=== PATIENT | female | born 1975 | race Caucasian/White ===

== ENCOUNTER 2017-10-01 08:26 | Day surgery (SDC) | payer OTHER ==
[2017-09-30 13:38] VITALS: BMI 29.3
[2017-10-01 09:28] VITALS: TEMP 99.1
[2017-10-01] MEDS ORDERED: BUPIVACAINE HCL/PF 0.25% (2.5MG/ML) 10 ML VIAL ONE (09:51)
[2017-10-01] MEDS ORDERED: methylPREDNISolone ACET (DEPO) 80 MG/1 ML VIAL ONE (09:51)
[2017-10-01] MEDS ORDERED: MIDAZOLAM HCL 2 MG/2 ML SINGLE DOSE VIAL ONE (10:06)
[2017-10-01] MEDS ORDERED: PROPOFOL 20 ML ONE (10:11)
[2017-10-01] MEDS ORDERED: LIDOCAINE HCL/PF 2% SDV 5ML VIAL ONE (10:11)
[2017-10-01] MEDS ORDERED: BUPIVACAINE HCL/PF 0.25% (2.5MG/ML) 10 ML VIAL IJ ONE (10:18)
[2017-10-01] MEDS ORDERED: LIDOCAINE HCL 1% PRESERVATIVE FREE - 30ML VIAL IJ ONE (10:18)
[2017-10-01] MEDS ORDERED: methylPREDNISolone ACET (DEPO) 80 MG/1 ML VIAL IJ ONE (10:18)
--- NOTE | 2017-10-01 11:00 | OP ---
DATE OF OPERATION: 10/01/2017 PREOPERATIVE DIAGNOSIS: 1. L5-S1 facet disease with spondylolisthesis. 2. Mechanical lower back pain and right lower extremity radiculopathy greater than left. POSTOPERATIVE DIAGNOSIS: 1. L5-S1 facet disease with spondylolisthesis. 2. Mechanical lower back pain and right lower extremity radiculopathy greater than left. ATTENDING SURGEON: Abhilash Mcrae MD PROCEDURE: 1. Right L5-S1 epidural steroid injection. 2. Intraoperative fluoroscopy. ANESTHESIA: Local with IV sedation. ANESTHESIOLOGIST: Gideon Gerard MD INDICATIONS: The patient is a 42-year-old female with back pain and lumbar radiculopathy. Because of the intractable symptoms and failure of conservative treatment, she is here for the first epidural steroid injection. The risks of the procedure include, but are not limited to, bleeding, infection, spinal headache, and neurological injury. The patient understands the indications for the procedure, the procedure in detail, risks and benefits, and alternative treatments for her lumbar condition, and she wishes to proceed. No guarantees were given for a favorable outcome. PROCEDURE IN DETAIL: After the patient was taken to the operating room, she was placed in the prone position with a pillow under her hips. Lumbar region was cleaned with alcohol and prepped with Betadine. A skin wheal was raised with 5 mL of 1% Xylocaine. A 20-degree spinal needle was inserted under AP and lateral fluoroscopic guidance from a right-sided approach to L5-S1. Loss of resistance technique was utilized, and there was no CSF or blood backflow. The needle bevel was turned cephalad and laterally. Depo-Medrol 80 mg and 1 mL of 0.25% Marcaine were injected, and the needle was withdrawn and sterile bandage was applied. The patient tolerated the procedure well and was turned back to the supine position, moving bilateral lower extremities well. She did not complain of headache. ABHILASH MCRAE M.D. [id number]
[2017-10-01 12:17] VITALS: BP 108/64; PULSE 69
== END 2017-10-01 12:00 | disposition home or self-care (01) ==
LOC: JASU-SURG 08:26
PROVIDERS: ATTEND Neurological Surgery
PROC: 3E0R3BZ Introduction of Anesthetic Agent into Spinal Canal, Percutaneous Approach (ICD-10-PCS; 2017-10-01)
PROC: B01BZZZ Fluoroscopy of Spinal Cord (ICD-10-PCS; 2017-10-01)
PROC: 3E0R33Z Introduction of Anti-inflammatory into Spinal Canal, Percutaneous Approach (ICD-10-PCS; principal; 2017-10-01 10:00)
DX: M43.17 Spondylolisthesis, lumbosacral region (principal); M54.5 Low back pain; M54.10 Radiculopathy, site unspecified
CPT/HCPCS: 76000-TC-FY; 84703

== ENCOUNTER 2017-11-19 07:52 | Day surgery (SDC) | payer OTHER ==
[2017-11-18 15:40] VITALS: BMI 30.8
[2017-11-19 08:27] VITALS: TEMP 98.9
[2017-11-19] MEDS ORDERED: methylPREDNISolone ACET (DEPO) 80 MG/1 ML VIAL ONE ×2 (09:09→10:05)
[2017-11-19] MEDS ORDERED: BUPIVACAINE HCL/PF 0.25% (2.5MG/ML) 10 ML VIAL ONE (09:09)
[2017-11-19] MEDS ORDERED: PROPOFOL 20 ML ONE (10:01)
[2017-11-19] MEDS ORDERED: BUPIVACAINE HCL/PF 0.25% (2.5MG/ML) 10 ML VIAL IJ ONE ×2 (10:06→10:09)
[2017-11-19] MEDS ORDERED: LIDOCAINE HCL 1%, 10 MG/ML (50 mL VIAL) IJ ONE (10:06)
[2017-11-19] MEDS ORDERED: methylPREDNISolone ACET (DEPO) 80 MG/1 ML VIAL IJ ONE ×2 (10:07→10:09)
[2017-11-19 11:05] VITALS: PULSE 56
--- NOTE | 2017-11-19 11:24 | OP ---
DATE OF OPERATION: 11/19/2017 PREOPERATIVE DIAGNOSIS: Lumbar disk disease with distal hypertrophy and lumbar radiculopathy, L5-S1. POSTOPERATIVE DIAGNOSIS: Lumbar disk disease with distal hypertrophy and lumbar radiculopathy, L5-S1. ATTENDING SURGEON: Que Mcrae MD PROCEDURE: 1. Right L5-S1 epidural steroid injection. 2. Operative fluoroscopy. ANESTHESIA: Local with IV sedation. ANESTHESOILOGIST: Eunice Hernandez MD INDICATION: The patient is a 42-year-old female with intractable lower back pain and lumbar radiculopathy. She had benefited somewhat from her 1st injection for about a month. She is here for the 2nd injection. The risks of the procedure include but are not limited to bleeding, infection, spinal headache and neurological injury. The patient understands the indication for the procedure, procedure in detail, risks and benefits and alternatives for treatment of her lumbar condition and wished to proceed. No guarantee was given for a favorable outcome. PROCEDURE IN DETAIL: After the patient was taken to the operating room she was placed in a prone position with a pillow under her hips. Lumbar region cleaned with alcohol and prepped with Betadine. A skin wheal raised with 5 mL of 1% Xylocaine. A 22-gauge spinal needle was inserted under AP and lateral fluoroscopic guidance from right-sided approach to L5-S1. A very deep approach was needed. The patient had significant lumbar lordosis. Loss of resistance technique was utilized and there was no CSF or blood backflow. 80 mg of depomedrol and 1 mL of 0.25% Marcaine were injected. The needle was withdrawn and sterile bandage was applied. The patient tolerated the procedure well and was turned back to supine position, moving bilateral upper and lower extremities well. She was not complaining of headache. QEU MCRAE M.D. [id number] MTDD
[2017-11-19 13:42] VITALS: BP 102/68
== END 2017-11-19 11:20 | disposition home or self-care (01) ==
LOC: JASU-SURG 07:52
PROVIDERS: ATTEND Neurological Surgery
PROC: 3E0R33Z Introduction of Anti-inflammatory into Spinal Canal, Percutaneous Approach (ICD-10-PCS; 2017-11-19)
PROC: B01BYZZ Fluoroscopy of Spinal Cord using Other Contrast (ICD-10-PCS; 2017-11-19)
PROC: 3E0R3BZ Introduction of Anesthetic Agent into Spinal Canal, Percutaneous Approach (ICD-10-PCS; principal; 2017-11-19 09:30)
DX: M43.17 Spondylolisthesis, lumbosacral region (principal); M54.16 Radiculopathy, lumbar region
CPT/HCPCS: 36415; 76000-TC-FY; 84702

== ENCOUNTER 2018-02-02 06:21 | Day surgery (SDC) | payer OTHER ==
[2018-01-30 16:49] VITALS: BMI 26.5
[~2018-02-02 06:21] MED LIST: BUPIVACAINE HCL/PF 0.25% (2.5MG/ML) 10 ML VIAL IJ ONE; LIDOCAINE HCL 1% PRESERVATIVE FREE - 30ML VIAL IJ ONE; methylPREDNISolone ACET (DEPO) 80 MG/1 ML VIAL IJ ONE
[2018-02-02] MEDS ORDERED: methylPREDNISolone ACET (DEPO) 80 MG/1 ML VIAL ONE (07:34)
[2018-02-02] MEDS ORDERED: BUPIVACAINE HCL/PF 0.25% (2.5MG/ML) 10 ML VIAL ONE (07:35)
[2018-02-02] MEDS ORDERED: LIDOCAINE HCL/PF 2% SDV 5ML VIAL ONE (08:52)
[2018-02-02] MEDS ORDERED: PROPOFOL 20 ML ONE (08:52)
[2018-02-02] MEDS ORDERED: methylPREDNISolone ACET (DEPO) 80 MG/1 ML VIAL IJ ONE (08:53)
[2018-02-02] MEDS ORDERED: BUPIVACAINE HCL/PF 0.25% (2.5MG/ML) 10 ML VIAL IJ ONE (08:53)
[2018-02-02] MEDS ORDERED: LIDOCAINE HCL 1% PRESERVATIVE FREE - 30ML VIAL IJ ONE (08:53)
[2018-02-02 09:27] VITALS: TEMP 97.8
[2018-02-02 10:30] VITALS: BP 100/62; PULSE 64
--- NOTE | 2018-02-02 19:15 | OP ---
DATE OF OPERATION: 02/02/2018 PREOPERATIVE DIAGNOSES: 1. L5-S1 degenerative disk disease with facet hypertrophy and facet joint effusion. 2. Axial mechanical lower back pain and lumbar radiculopathy, right greater than left. POSTOPERATIVE DIAGNOSES: 1. L5-S1 degenerative disk disease with facet hypertrophy and facet joint effusion. 2. Axial mechanical lower back pain and lumbar radiculopathy, right greater than left. ATTENDING SURGEON: Que Peguero MD PROCEDURE: 1. Right L5-S1 epidural steroid injection. 2. Intraoperative fluoroscopy. ANESTHESIA: Local with IV sedation. ANESTHESIOLOGIST: Reynaldo Abbasi MD INDICATION: The patient is a 42-year-old female with intractable lower back pain and lumbar radiculopathy. She also experiences intermittent weakness. Because of her intractable pain and failure of conservative treatment, she is here for the third epidural steroid injection. The second injection did give her a few weeks of relief. The patient understands the indications for the procedure, procedure in detail, risks and benefits, and alternatives for the treatment of her lumbar condition and wished to proceed. No guarantee was given for a favorable outcome. PROCEDURE IN DETAIL: After the patient was taken to the operating room, she was placed in the prone position with a pillow under her hips. Lumbar region was cleaned with alcohol and prepped with Betadine. A skin wheal was raised with 5 mL of 1% Xylocaine. A 20-degree spinal needle was inserted under AP and lateral fluoroscopic guidance from a right-sided approach to L5-S1, through an interlaminar approach. Jiun-yt-vhwmfoyoio technique was utilized, and there was no CSF or blood backflow. Depo-Medrol 80 mg and 1 mL of 0.25% Marcaine were injected. The needle was withdrawn. Sterile bandage was applied. The patient tolerated the procedure well and was turned back to supine position, moving bilateral lower extremities well. She did not complain of headache. The OR timeout procedure was followed. Nelly [id number]
== END 2018-02-02 10:45 | disposition home or self-care (01) ==
LOC: JASU-SURG 06:21
PROVIDERS: ATTEND Neurological Surgery
PROC: 3E0S33Z Introduction of Anti-inflammatory into Epidural Space, Percutaneous Approach (ICD-10-PCS; 2018-02-02)
PROC: B01BYZZ Fluoroscopy of Spinal Cord using Other Contrast (ICD-10-PCS; 2018-02-02)
PROC: 3E0S3BZ Introduction of Anesthetic Agent into Epidural Space, Percutaneous Approach (ICD-10-PCS; principal; 2018-02-02 08:00)
DX: M51.16 Intervertebral disc disorders with radiculopathy, lumbar region (principal); M47.896 Other spondylosis, lumbar region; M54.5 Low back pain; M25.48 Effusion, other site
CPT/HCPCS: 36415; 76000-TC-FY; 84703

== ENCOUNTER 2018-02-16 05:11 | Inpatient (IN) | payer OTHER ==
[2018-02-13 09:29] VITALS: BMI 26.5
[~2018-02-16 05:11] MED LIST changes: +BACITRACIN 15 GM TUBE TOPICAL OINTMENT TP ONE; -BUPIVACAINE HCL/PF 0.25% (2.5MG/ML) 10 ML VIAL IJ ONE; -LIDOCAINE HCL 1% PRESERVATIVE FREE - 30ML VIAL IJ ONE; -methylPREDNISolone ACET (DEPO) 80 MG/1 ML VIAL IJ ONE
[2018-02-16] MEDS ORDERED: BACITRACIN 15 GM TUBE TOPICAL OINTMENT ONE (08:19)
[2018-02-16 08:22] LABS: BASO % 0.8 % (0-2.0); EOS % 3.4 % (0-4.5); HEMATOCRIT 32.9 % (32.4-45.2); LYMPH % 29.1 % (8-40); MCH 27.5 pg (25.7-33.7); MCHC 33.5 g/dl (32.0-36.0); MEAN CELL VOLUME 81.9 fl (80-96); MEAN PLT VOLUME 8.8 fl (7.5-11.1); MONO % 6.2 % (3.8-10.2); NEUT % 60.5 % (42.8-82.8); PLATELET COUNT 267 K/MM3 (134-434); RBC 4.01 M/mm3 (3.60-5.2); RDW 15.2 % (11.6-15.6); WHITE BLOOD COUNT 6.7 K/mm3 (4.0-10.0)
[2018-02-16] MEDS ORDERED: BUPIVACAINE HCL/PF 0.75% 10 ML VIAL ONE (08:31)
--- NOTE | 2018-02-16 08:35 | PN ---
Progress Note (short form) - Note Progress Note: NEUROSURGERY PRE-OP Pt examined at bedside Incision marked Reported T 99.2 a couple days ago and felt fatigued, better now Repeat WBC 6.7K OK to proceed with planned procedure
[2018-02-16] MEDS ORDERED: PROPOFOL 20 ML ONE ×8 (08:36→11:09)
[2018-02-16] MEDS ORDERED: MIDAZOLAM HCL 2 MG/2 ML SINGLE DOSE VIAL ONE ×3 (08:37→13:12)
[2018-02-16] MEDS ORDERED: ROCURONIUM BROMIDE 50 MG/5 ML VIAL ONE (08:37)
[2018-02-16] MEDS ORDERED: SODIUM CHLORIDE 0.9% P/F 10 ML VIAL IJ ONE ×2 (08:38→09:27)
[2018-02-16] MEDS ORDERED: morphine SULFATE/Preservative Free 0.5 MG/ML (1cc Syringe) ONE (08:41)
[2018-02-16] MEDS ORDERED: LIDOCAINE HCL/PF 2% SDV 5ML VIAL ONE (08:59)
[2018-02-16] MEDS ORDERED: ceFAZolin SODIUM 1 GM VIAL ONE ×3 (09:27→20:58)
[2018-02-16] MEDS ORDERED: ceFAZolin SODIUM 1 GM VIAL IVPB ONE (09:28)
[2018-02-16] MEDS ORDERED: DEXAMETHASONE SOD PHOSPHATE 4 MG/1 ML VIAL ONE ×2 (09:30→12:37)
[2018-02-16] MEDS ORDERED: THROMBIN (BOVINE) 5,000 UNIT VIAL TP ONE (09:56)
[2018-02-16] MEDS ORDERED: BACITRACIN 50,000 UNITS VIAL NR ONE (09:56)
[2018-02-16] MEDS ORDERED: BUPIVACAINE HCL/PF 0.25% (2.5MG/ML) 10 ML VIAL ONE (12:18)
[2018-02-16] MEDS ORDERED: BUPIVACAINE LIPOSOME/PF (EXPAREL) 266 MG/20 ML VIAL NR ONE (12:30)
[2018-02-16] MEDS ORDERED: BUPIVACAINE HCL/PF 0.75% 10 ML VIAL NR ONE (12:30)
[2018-02-16] MEDS ORDERED: BACITRACIN 15 GM TUBE TOPICAL OINTMENT TP ONE (13:02)
[2018-02-16] MEDS ORDERED: ONDANSETRON 4 MG/2 ML VIAL IVPUSH PRN ×2 (13:05→13:20)
[2018-02-16] MEDS ORDERED: BISACODYL 10 MG SUPP.RECT RC PRN (13:05)
--- NOTE | 2018-02-16 13:05 | OP ---
Operative Note - Note: Operative Date: 02/16/18 Pre-Operative Diagnosis: L5-S1 spondylolisthesis, stenosis, radiculopathy Operation: B L5 and partial B S1 laminectomies, facetectomy, foramenotomy, discectomy, interbody fusion L5-S1; B interbody implants L5-S1; pedicle screw fixation, fluoroscopy, microsurgical dissection, posterolateral fusion L5-S1 Findings: Chronic pressure on dura with thinning; sensitive roots L L5/S1 > L; stenosis Implants: 11x25 interbody cortico-cancellous implants; [employer] [place] Spine Bernadette 4.5 system (6.5 x 45 mm screws at L5, 7.5 x 40 mm screws at S1, 35 mm rods x2) Surgeon: Que Peguero Medical Esthetician: Ivan Jain Anesthesiologist/BRUSH OPERATOR: Gideon Gerard Anesthesia: General Specimens Removed: L5-S1 disc Estimated Blood Loss (mls): 100
[2018-02-16] MEDS ORDERED: D5-1/2NS+20 MEQ KCL - 1,000 ML IV SCH (13:15)
--- NOTE | 2018-02-16 13:16 | SURG ---
Surgery Tool And Die Repair Note Tool And Die Repair: Ivan Jain PA-C Date of Service: 02/16/18 Diagnosis: Lumbar radiculopathy L5/S1 Procedure: Posterior lumbar L5/S1 fusion I was present for the entirety of the operative procedure. For further detail, please refer to operative report.
[2018-02-16] MEDS ORDERED: PROMETHAZINE HCL 25 MG/1 ML VIAL IVPB PRN (13:20)
[2018-02-16] MEDS ORDERED: DEXAMETHASONE SOD PHOSPHATE 4 MG/1 ML VIAL IVPUSH PRN (13:20)
[2018-02-16] MEDS ORDERED: LACTATED RINGERS SOLUTION 1,000 ML IV SCH (13:30)
--- NOTE | 2018-02-16 13:36 | PN ---
Progress Note (short form) - Note Progress Note: NEUROSURGERY POD #0 In PACU Not in much pain at the moment AF, VSS, O2 sat 99% Motor at least 4/5 B UE/LE Dressing C/D/I Labs in PACU WIND TURBINE DESIGN ENGINEER if needed Bedrest today OOB tomorrow with brace not in waiting area initially, but found him later on and discuss intra- op findings
[2018-02-16] MEDS: D5-1/2NS+20 MEQ KCL - 20 MEQ/1,000 ML INFUS.BAG IV SCH (16:00)
[2018-02-16] MEDS ORDERED: HYDROmorphone *PCA* 10MG/50ML DISP.SYRIN PCA SCH (16:30)
[2018-02-16 16:38] LABS: HEMATOCRIT 31.6 % (32.4-45.2); HEMOGLOBIN 10.4 GM/dL (10.7-15.3); MCHC 32.8 g/dl (32.0-36.0); MEAN CELL VOLUME 82.5 fl (80-96); MEAN PLT VOLUME 9.4 fl (7.5-11.1); PLATELET COUNT 260 K/MM3 (134-434); RBC 3.83 M/mm3 (3.60-5.2); RDW 15.1 % (11.6-15.6); WHITE BLOOD COUNT 10.3 K/mm3 (4.0-10.0)
[2018-02-16 16:55] LABS: ANION GAP 4 MMOL/L (8-16); BLOOD UREA NITROGEN 12 mg/dL (7-18); CALCIUM 8.6 mg/dL (8.5-10.1); CHLORIDE 110 mmol/L (98-107); CO2 27 mmol/L (21-32); CREATININE 0.6 mg/dL (0.55-1.3); GLUCOSE,RANDOM 107 mg/dL (74-106); POTASSIUM 4.9 mmol/L (3.5-5.1); SODIUM 141 mmol/L (136-145)
[2018-02-16] MEDS ORDERED: DEXTROSE 5%-WATER - 50 ML IVPB ONE ×2 (17:33→20:58)
[2018-02-16] MEDS: DOCUSATE SODIUM 100 MG CAPSULE (FP) PO SCH ×2 (17:38→22:52)
[2018-02-16] MEDS: CEFAZOLIN 1 GM in DEXTROSE 5%-WATER - 50 ML IVPB SCH ×2 (17:39→21:19)
[2018-02-16] MEDS: diazePAM 5 MG TABLET PO SCH ×2 (17:39→21:34)
[2018-02-16] MEDS ORDERED: PNEUMOC 13-VAL CONJ-DIP CRM/PF 0.5 ML DISP.SYRIN IM ONE (19:00)
[2018-02-16] MEDS: TOPIRAMATE 25 MG TABLET (FP) PO SCH (21:19)
[2018-02-16] MEDS: PANTOPRAZOLE 20 MG TABLET (FP) PO SCH (21:41)
[2018-02-16] MEDS: HYDROmorphone *PCA* 10MG/50ML DISP.SYRIN PCA SCH (23:04)
[2018-02-17] MEDS ORDERED: diazePAM 5 MG TABLET PO ONE (01:15)
[2018-02-17] MEDS ORDERED: ceFAZolin SODIUM 1 GM VIAL ONE ×3 (02:15→17:58)
[2018-02-17] MEDS ORDERED: DEXTROSE 5%-WATER - 50 ML IVPB ONE ×3 (02:15→17:58)
[2018-02-17] MEDS: D5-1/2NS+20 MEQ KCL - 20 MEQ/1,000 ML INFUS.BAG IV SCH ×3 (02:16→23:26)
[2018-02-17] MEDS: CEFAZOLIN 1 GM in DEXTROSE 5%-WATER - 50 ML IVPB SCH ×3 (02:17→18:00)
[2018-02-17] MEDS: DOCUSATE SODIUM 100 MG CAPSULE (FP) PO SCH ×3 (05:39→21:41)
[2018-02-17] MEDS: diazePAM 5 MG TABLET PO SCH ×3 (05:39→21:40)
--- NOTE | 2018-02-17 06:55 | OP ---
DATE OF OPERATION: 02/16/2018 PREOPERATIVE DIAGNOSES: 1. L5-S1 spondylolisthesis with bilateral L5-S1 facet joint effusion and stenosis. 2. Lumbar radiculopathy, right greater than left, L5-S1. 3. History of anterior cervical fusion. POSTOPERATIVE DIAGNOSES: 1. L5-S1 spondylolisthesis with bilateral L5-S1 facet joint effusion and stenosis. 2. Lumbar radiculopathy, right greater than left, L5-S1. 3. History of anterior cervical fusion. ATTENDING SURGEON: Que Peguero MD GUM PULLER: KENDRICK Diaz ANESTHESIA: General endotracheal. ANESTHESIOLOGIST: Gideon Gerard MD ESTIMATED BLOOD LOSS: 100 mL. PROCEDURE: 1. Bilateral L5 and partial bilateral S1 laminectomy and full spinal canal and lateral recess decompression, including facetectomy and foraminotomy and diskectomy at L5 and S1 (99641, 82490). 2. Microsurgical dissection with operative microscope and microsurgical technique (80557). 3. [place] of autologous spinous process and laminar bone for interbody and posterolateral fusion (68164). 4. Bilateral L5-S1 diskectomy. 5. Posterior lumbar interbody fusion, L5-S1 (21171). 6. Utilization of intervertebral prosthetic device at L5-S1 (27655). 7. Posterior lumbar pedicle screw fixation system placement from L5 to S1 with [employer] Spine Bernadette-4.5 titanium system (6.5 x 45 mm screws at L5 bilaterally, 7.5 x 40 mm screws at S1 bilaterally, connected with 35-mm rods and secured with locking screws) - (97627). 8. Intraoperative fluoroscopy for localization and pedicle screw placement (96935-88). 9. Posterolateral fusion with autologous morcellized bone graft and bone dust at L5-S1 (56990). FINDINGS: 1. Extremely thin/transparent dura oozing CSF secondary to chronic pressure on the dural sac. 2. Sensitive lumbar nerve roots, right L5-S1 greater than left. 3. Central and lateral recess stenosis. INDICATIONS: The patient is a 42-year-old female who presents with intractable lower back pain and lumbar radiculopathy. Because of her intractable symptoms and failure of conservative treatment, she is consented for lumbar decompression, fusion, and instrumentation. The risks of surgery include, but are not limited to, bleeding, infection, dural tear with CSF leak, neurologic injury including thromboembolic risk, adjacent-level disease, nonunion of fusion, and risks of general anesthesia. The patient understands indication for the procedure, procedure in detail, risks and benefits and alternative treatments of her lumbar condition and wishes to proceed. No guarantees given for a favorable outcome. The patient was urged strongly to quit smoking to improve her chance of healing the fusion successfully. No guarantee was given for a favorable outcome. Intraoperatively, SSEP and MEP signals were monitored. PROCEDURE IN DETAIL: The patient was taken to the operating suite, placed in supine position. After patient's general anesthesia was induced and appropriate lines were placed, a Ha catheter was inserted. The patient was then turned on prone position on a Paulie frame. All pressure points were checked and padded. The lumbar region was cleaned with alcohol and prepped with Betadine and a localizing x-ray was obtained. An approximately 3-1/2-inch incision was opened in the midline from L4 to S1. Subperiosteal dissection was carried out with a periosteal elevator and monopolar electrocautery. The exposure was made from L4 to S1. Two self-retaining retractors were inserted. At this point, another localizing x-ray was obtained with a clamp on the bottom of the L5 lamina. After position was verified, supraspinal ligament at L5-S1 was resected with a Leksell rongeur and spinous processes at L5 were resected with Leksell rongeur and morcellated for bone graft purposes with a bone mill. Complete L5 laminectomy was carried out with a combination of angled curettes, high-speed pneumatic drill, and Kerrison rongeur. The underlying dura was decompressed. Some residual epidural steroid crystals were noted from prior epidural injections. The dura was extremely thin and it was under pressure. It was oozing CSF, even without anything done to it. The area was reinforced with two 6-0 Prolene sutures. At this point, the facetectomy was carried out with a high-speed pneumatic drill as well as a Kerrison rongeur. Epidural hemostasis was maintained with bipolar electrocautery. A bilateral foraminotomy was carried out at L5-S1 and S1-S2 with angled curette and Kerrison rongeur. In summary, the thecal sac as well as bilateral L5 and S1 nerve roots were all decompressed. Under gentle left S1 nerve root retraction, disk annulus was opened on the left side with a No. 15 blade. This and prior (decompression) portion of the procedure was performed with the use of the operating microscope for both illumination and magnification. Microsurgical techniques were utilized. The disk space was cleaned with serially larger disk space scraper from 6 up to 11 mm. A 12-mm disk space distractor was used. Attention then turned to the right side of the disk space , where under gentle right S1 nerve root retraction, disk annulus was incised with a No. 15 blade and the disk space was similarly prepared with scraper as well as curettes. An 11 x 25 mm interbody implant from [employer] was inserted and countersunk by about 5 mm. Interbody implant padilla and tamp were used for this procedure of inserting the interbody implant. This procedure was repeated on the left side, where the disk space was similarly prepared and the central portion of the material was removed with downgoing curette and upgoing pituitary rongeur. The central portion of the disk space was packed with autologous morcellized bone graft and bone dust which was harvested earlier. Another 11 x 25 mm interbody implant was inserted and countersunk by 2 to 3 mm. These bony implants and autologous bone graft provided the basis for interbody fusion. At this point, the microscope was moved out of the way and the fluoroscope was brought into the lateral position. Entry points of pedicle screw were marked with the high-speed pneumatic drill, screw hole was first awled, and then tapped. A 6.5 x 45 mm screws were used at L5 bilaterally and 7.5 x 40 mm screws were used at S1 bilaterally. The EMG threshold of all screws was 20 mA or greater. This was 200 Hz stimulation. Then, 35-mm rods were loaded on top of the screws and locked down with locking screws. The screws were compressed prior to final tightening. A torque wrench and a counter-torque wrench were used for final tightening. The wound was irrigated with a copious amount of antibiotic irrigation. Then, 10 mL each of Exparel was injected in the superficial muscular layer on each side. Prior to this, a piece of Duragen was laid in the epidural space and was covered with a thin layer of DuraSeal. Paraspinal hemostasis was obtained using bipolar electrocautery. At this point, the posterolateral surface of L5 and S1 was packed with autologous morcellized bone graft and bone dust, which was harvested earlier. This completed the posterolateral fusion. At this point, dorsal lumbar musculature was approximated with 0 Vicryl suture and dorsal lumbar fascia was closed with 0 Vicryl suture. Subcutaneous fascia was closed with 3-0 Vicryl suture and skin was closed with a 4-0 Vicryl running subcuticular suture. Steri-Strips and a sterile occlusive dressing were applied. The patient tolerated the procedure well and was returned supine position and extubated. She received one dose of 2 g Ancef. All needle, lap, sponge counts are correct. The OR time-out procedure was followed. QUE PEGUERO M.D. [id number] MTDD
--- NOTE | 2018-02-17 07:48 | PN ---
Progress Note (short form) - Note Progress Note: NEUROSURGERY POD #1 In bed Did not sleep well LBP Leg cramps Tmax 99.8, AF, VSS Motor at least 4/5 B UE/LE Dressing C/D/I Labs OK; WBC 10.3 DO ALL OPERATOR Add Nucynta prn Add Neurontin Bedrest today OOB with brace D/c Ha when OOB LS spine x-rays Incentive spirometry Cont Ancef
--- NOTE | 2018-02-17 08:30 | PN ---
Progress Note (short form) - Note Progress Note: Post op day#1.S/P L5-S1 Decompression with fusion and instrumentation under Ga uneventful.Patient stable and c/o pain score of 4-5/10 on dilaudid paper sales representative.Will continue paper sales representative today and will f/u tomorrow.
[2018-02-17] MEDS: GABAPENTIN 300 MG CAPSULE (FP) PO SCH ×3 (08:40→21:40)
[2018-02-17] MEDS ORDERED: PNEUMOC 13-VAL CONJ-DIP CRM/PF 0.5 ML DISP.SYRIN IM ONE (10:00)
[2018-02-17] MEDS ORDERED: FLU VACCINE QUAD 60 MCG/0.5 ML (MDV 18-19) IM ONE (10:00)
[2018-02-17] MEDS: PANTOPRAZOLE 20 MG TABLET (FP) PO SCH ×2 (10:28→21:40)
[2018-02-17] MEDS: LORATADINE 10 MG TABLET PO SCH (10:28)
[2018-02-17] MEDS: ACETAMINOPHEN 325 MG TABLET (FP) PO PRN (18:00)
[2018-02-17] MEDS: HYDROmorphone *PCA* 10MG/50ML DISP.SYRIN PCA SCH (21:37)
[2018-02-17] MEDS: TOPIRAMATE 25 MG TABLET (FP) PO SCH (21:40)
[2018-02-18] MEDS ORDERED: ceFAZolin SODIUM 1 GM VIAL ONE ×3 (01:20→17:56)
[2018-02-18] MEDS ORDERED: DEXTROSE 5%-WATER - 50 ML IVPB ONE ×3 (01:21→17:56)
[2018-02-18] MEDS: CEFAZOLIN 1 GM in DEXTROSE 5%-WATER - 50 ML IVPB SCH ×3 (01:23→18:42)
[2018-02-18] MEDS: ACETAMINOPHEN 325 MG TABLET (FP) PO PRN ×2 (02:22→21:45)
[2018-02-18] MEDS: DOCUSATE SODIUM 100 MG CAPSULE (FP) PO SCH ×3 (05:32→21:45)
[2018-02-18] MEDS: diazePAM 5 MG TABLET PO SCH ×3 (05:32→21:45)
[2018-02-18] MEDS: GABAPENTIN 300 MG CAPSULE (FP) PO SCH ×3 (05:32→21:45)
--- NOTE | 2018-02-18 07:32 | PN ---
Progress Note (short form) - Note Progress Note: NEUROSURGERY POD #2 In bed Given tylenol for temp LBP Leg cramps less Tmax 102.2, now 99.1, AF, VSS Motor at least 4/5 B UE/LE Dressing C/D/I Labs OK; WBC 10.3 COMMUTATOR UNDERCUTTER On Nucynta prn On Neurontin OOB with brace D/c Ha when OOB today LS spine x-rays Incentive spirometry Cont Ancef given temp Blood cultures if temp > 101.5 today
[2018-02-18] MEDS: TAPENTADOL HYDROCHLORIDE 50 MG TABLET PO PRN ×2 (08:21→18:38)
[2018-02-18] MEDS: PANTOPRAZOLE 20 MG TABLET (FP) PO SCH ×2 (10:38→22:13)
[2018-02-18] MEDS: LORATADINE 10 MG TABLET PO SCH (10:38)
[2018-02-18] MEDS ORDERED: oxyCODONE HCL 5 MG TABLET ONE (12:14)
[2018-02-18] MEDS ORDERED: oxyCODONE HCL 10 MG SUSTAINED ACTING TABLET PO ONE (12:15)
[2018-02-18] MEDS ORDERED: oxyCODONE HCL 5 MG TABLET PO ONE (12:45)
[2018-02-18 13:38] LABS: URINE APPEARANCE CLEAR; URINE BILIRUBIN NEGATIVE (<2.0 mg/dL); URINE COLOR COLORLESS; URINE GLUCOSE (UA) NEGATIVE (NEGATIVE); URINE KETONE NEGATIVE (NEGATIVE); URINE LEUK ESTERASE NEGATIVE (NEGATIVE); URINE NITRITE NEGATIVE (NEGATIVE); URINE PROTEIN NEGATIVE (NEGATIVE); URINE UROBILINOGEN NEGATIVE mg/dL (0.2-1.0)
--- NOTE | 2018-02-18 15:32 | PN ---
Progress Note (short form) - Note Progress Note: Pain Management Patient seen at bedside, sleeping, pain controlled, COMMUNITY PHARMACIST stopped today. Dept of anesthesiology will sign off case at this time. Feel free to re-consult if pain management questions arise
--- NOTE | 2018-02-18 17:40 | PATH ---
Surgical Pathology Report Patient Name: SOPHIA CASEY Med. Rec. #: [id number] /Age/Gender: 1975 (Age: 42) / F Account: [id number] Location: [facility] MED/SURG Taken: 02/16/2018 Received: 02/17/2018 Reported: 02/18/2018 Physicians: Que Peguero M.D. Specimen(s) Received DISC L5-S1 Clinical History Lumbar spine radiculopathy Final Diagnosis DISC, L5-S1, DISCECTOMY: FRAGMENTS OF CARTILAGINOUS TISSUE AND SCANTY BONE SHOWING DEGENERATIVE CHANGE. Electronically Signed Miguel Terrell M.D. Gross Description Received in formalin, labeled "disc, L5-S1" are multiple white irregular portions of cartilage and soft tissue measuring 3.5 x 3.5 x 1cm in aggregate. Associate Director sections are submitted in one cassette. EMILIANA/02/17/2018 petr/02/17/2018
[2018-02-18] MEDS: D5-1/2NS+20 MEQ KCL - 20 MEQ/1,000 ML INFUS.BAG IV SCH (18:43)
[2018-02-18] MEDS: oxyCODONE HCL 10 MG SUSTAINED ACTING TABLET PO SCH (21:44)
[2018-02-18] MEDS: TOPIRAMATE 25 MG TABLET (FP) PO SCH (21:45)
[2018-02-19] MEDS ORDERED: ceFAZolin SODIUM 1 GM VIAL ONE ×4 (01:03→21:49)
[2018-02-19] MEDS ORDERED: DEXTROSE 5%-WATER - 50 ML IVPB ONE ×4 (01:03→21:50)
[2018-02-19] MEDS: CEFAZOLIN 1 GM in DEXTROSE 5%-WATER - 50 ML IVPB SCH ×3 (01:07→17:39)
[2018-02-19] MEDS: D5-1/2NS+20 MEQ KCL - 20 MEQ/1,000 ML INFUS.BAG IV SCH ×2 (03:09→14:29)
[2018-02-19] MEDS: diazePAM 5 MG TABLET PO SCH ×3 (06:12→21:57)
[2018-02-19] MEDS: GABAPENTIN 300 MG CAPSULE (FP) PO SCH ×3 (06:12→21:56)
[2018-02-19] MEDS: DOCUSATE SODIUM 100 MG CAPSULE (FP) PO SCH ×3 (06:18→21:57)
--- NOTE | 2018-02-19 07:34 | PN ---
Progress Note (short form) - Note Progress Note: NEUROSURGERY POD #3 In bed Given tylenol for temp LBP Leg cramps less Tmax 100.6 last night, VSS Motor at least 4+/5 B UE/LE Dressing C/D/I UA negative, U Cx pending On Oxycodone prn On Neurontin OOB with brace D/c Ha when OOB today LS spine x-rays- satisfactory implant positions and spine alignment L5-S1 Incentive spirometry Cont Ancef given temp Blood cultures if temp > 101.5
[2018-02-19] MEDS: oxyCODONE HCL 10 MG SUSTAINED ACTING TABLET PO SCH ×2 (10:21→21:56)
[2018-02-19] MEDS: LORATADINE 10 MG TABLET PO SCH (10:22)
[2018-02-19] MEDS: PANTOPRAZOLE 20 MG TABLET (FP) PO SCH ×2 (10:22→21:59)
[2018-02-19] MEDS: TAPENTADOL HYDROCHLORIDE 50 MG TABLET PO PRN (13:32)
[2018-02-19] MEDS ORDERED: D5-1/2NS+20 MEQ KCL - 20 MEQ/1,000 ML INFUS.BAG IV SCH (14:45)
[2018-02-19] MEDS: TOPIRAMATE 25 MG TABLET (FP) PO SCH (21:57)
[2018-02-20] MEDS: CEFAZOLIN 1 GM in DEXTROSE 5%-WATER - 50 ML IVPB SCH ×2 (01:34→11:07)
[2018-02-20] MEDS: GABAPENTIN 300 MG CAPSULE (FP) PO SCH ×3 (06:40→22:13)
[2018-02-20] MEDS: diazePAM 5 MG TABLET PO SCH ×3 (06:40→22:12)
[2018-02-20] MEDS: DOCUSATE SODIUM 100 MG CAPSULE (FP) PO SCH ×3 (06:40→22:14)
--- NOTE | 2018-02-20 07:55 | PN ---
Progress Note (short form) - Note Progress Note: NEUROSURGERY POD #4 In bed Given tylenol for temp LBP Leg cramps less Tmax 99.6 last night, VSS Motor at least 4+/5 B UE/LE Dressing C/D/I UA negative, U Cx negative On Oxycodone prn On Neurontin OOB with brace LS spine x-rays- satisfactory implant positions and spine alignment L5-S1 Incentive spirometry Switch to Keflex as pt is afebrile Blood cultures if temp > 101.5 Plan d/c over the weekend
[2018-02-20] MEDS ORDERED: PT OWN MED DRAWER 7, Y5N ONE (10:48)
[2018-02-20] MEDS ORDERED: DEXTROSE 5%-WATER - 50 ML IVPB ONE (10:48)
[2018-02-20] MEDS ORDERED: ceFAZolin SODIUM 1 GM VIAL ONE (10:48)
[2018-02-20] MEDS: oxyCODONE HCL 10 MG SUSTAINED ACTING TABLET PO SCH ×2 (10:53→22:13)
[2018-02-20] MEDS: LORATADINE 10 MG TABLET PO SCH (10:54)
[2018-02-20] MEDS: PANTOPRAZOLE 20 MG TABLET (FP) PO SCH ×2 (10:55→22:13)
[2018-02-20] MEDS: TAPENTADOL HYDROCHLORIDE 50 MG TABLET PO PRN ×2 (11:10→19:09)
[2018-02-20] MEDS: CEPHALEXIN MONOHYDRATE 500 MG CAPSULE (UD) PO SCH ×3 (11:11→22:13)
[2018-02-20] MEDS ORDERED: PNEUMOC 13-VAL CONJ-DIP CRM/PF 0.5 ML DISP.SYRIN IM ONE (12:16)
[2018-02-20] MEDS ORDERED: PNEUMOCOCCAL 23 VACCINE 0.5 ML VIAL IM ONE (14:00)
[2018-02-20] MEDS ORDERED: FLU VACCINE QUAD 60 MCG/0.5 ML (MDV 18-19) IM ONE (14:00)
[2018-02-20] MEDS: ACETAMINOPHEN 325 MG TABLET (FP) PO PRN (15:55)
[2018-02-20] MEDS: TOPIRAMATE 25 MG TABLET (FP) PO SCH (22:13)
[2018-02-21] MEDS: GABAPENTIN 300 MG CAPSULE (FP) PO SCH ×2 (06:24→14:54)
[2018-02-21] MEDS: diazePAM 5 MG TABLET PO SCH ×2 (06:25→14:52)
[2018-02-21] MEDS: DOCUSATE SODIUM 100 MG CAPSULE (FP) PO SCH ×2 (06:25→14:50)
[2018-02-21 07:27] VITALS: BP 96/60
--- NOTE | 2018-02-21 09:10 | PN ---
Progress Note (short form) - Note Progress Note: NEUROSURGERY POD #5 In bed LBP better Some buttocks pain Leg cramps less Tmax 98.6 last night, VSS Motor at least 4+/5 B UE/LE Dressing C/D/I UA negative, U Cx negative On Oxycodone prn On Neurontin OOB with brace LS spine x-rays- satisfactory implant positions and spine alignment L5-S1 Incentive spirometry Switched to Keflex Plan d/c home over the weekend
[2018-02-21] MEDS: PANTOPRAZOLE 20 MG TABLET (FP) PO SCH (09:45)
[2018-02-21] MEDS: LORATADINE 10 MG TABLET PO SCH (09:45)
[2018-02-21] MEDS: oxyCODONE HCL 10 MG SUSTAINED ACTING TABLET PO SCH (09:45)
[2018-02-21] MEDS: CEPHALEXIN MONOHYDRATE 500 MG CAPSULE (UD) PO SCH ×3 (09:45→17:46)
[2018-02-21 12:33] VITALS: PULSE 84; TEMP 98.8
== END 2018-02-21 20:34 | disposition home health service (06) | DRG 460 ==
LOC: JSAMEDAYSX 05:11 → J8W 16:45
PROVIDERS: ADMIT Neurological Surgery; ATTEND Neurological Surgery
PROC: 0SG30AJ Fusion of Lumbosacral Joint with Interbody Fusion Device, Posterior Approach, Anterior Column, Open Approach (ICD-10-PCS; 2018-02-16)
PROC: 01NB0ZZ Release Lumbar Nerve, Open Approach (ICD-10-PCS; 2018-02-16)
PROC: 00QT0ZZ Repair Spinal Meninges, Open Approach (ICD-10-PCS; 2018-02-16)
PROC: 0SB40ZZ Excision of Lumbosacral Disc, Open Approach (ICD-10-PCS; principal; 2018-02-16 08:00)
DX: M43.17 Spondylolisthesis, lumbosacral region (principal); G96.0 Cerebrospinal fluid leak; M48.07 Spinal stenosis, lumbosacral region; M54.17 Radiculopathy, lumbosacral region
CPT/HCPCS: 36415; 72020-TC-FY; 72100-TC-FY; 80048; 81003; 84702; 85025; 85027; 86850; 86900; 86901; 87086; 88304-TC; 90688; 90732; 94010; 94760; 97116-GP; 97161-GP; G0008; G0009

== ENCOUNTER 2018-03-01 16:09 | Inpatient (IN) | payer OTHER ==
[2018-03-01] MEDS ORDERED: SODIUM CHLORIDE 0.9% 1000 ML INFUS.BAG IV ONE (16:36)
[2018-03-01] MEDS ORDERED: ACETAMINOPHEN 1000 MG/100 ML VIAL (NON FORMULARY) IVPB ONE ×2 (16:36→21:45)
--- NOTE | 2018-03-01 16:36 | PDOC ---
History of Present Illness - General History Source: Patient Exam Limitations: No Limitations - History of Present Illness Initial Comments: 03/01/18 16:53 The patient is a 42 year old female with a significant past medical history of recent decompression L5-S1 with Dr. Stahl who presents to the ER with drainage from the incision site 2 weeks post-op. Patient reports she has noticed sanguineous drainage since the surgery and occasionally purulent drainage. Patient denies any odor from the drainage. Patient states she changes the gauze once a day. She had a scheduled appointment with Dr. Stahl on 03/03 but did not want to wait until then. Patient also admits to right calf pain over the last few days. The patient fevers, chills, loss of bladder control. Allergies: NKA Past surgical history: L5-S1 decompression Social history: No reported alcohol, drug, or cigarette use. Neurosurgery: Dr. Que Stahl <Ani Whiting - Last Filed: 03/01/18 16:57> <Traci Solares - Last Filed: 03/01/18 17:45> - General Chief Complaint: Pain Stated Complaint: POST OP PAIN Time Seen by Provider: 03/01/18 16:20 Past History <Ani Whiting - Last Filed: 03/01/18 16:57> - Past Medical History Anemia: No Asthma: No Cancer: No Cardiac Disorders: No CVA: No COPD: No CHF: No Dementia: No Diabetes: No GI Disorders: Yes (acid reflux) Disorders: No HTN: No Hypercholesterolemia: No Liver Disease: No Seizures: No Thyroid Disease: No - Surgical History Abdominal Surgery: No Appendectomy: No Cardiac Surgery: No Cholecystectomy: No Lung Surgery: No Neurologic Surgery: Yes (cervical fusion 2017) Orthopedic Surgery: No - Suicide/Smoking/Psychosocial Hx Smoking Status: Yes Smoking History: Current every day smoker Have you smoked in the past 12 months: Yes Number of Cigarettes Smoked Daily: 10 Information on smoking cessation initiated: No 'Breaking Loose' booklet given: 02/16/18 Hx Alcohol Use: No Drug/Substance Use Hx: No Substance Use Type: None Hx Substance Use Treatment: No <Traci Solares - Last Filed: 03/01/18 17:45> - Past Medical History Allergies/Adverse Reactions: Allergies Allergy/AdvReac Type Severity Reaction Status Date / Time ciprofloxacin Allergy Severe "anaphylaxi Verified 03/01/18 16:19 s" levofloxacin [Levofloxacin] Allergy Severe "anaphylaxi Verified 03/01/18 16:19 s" Home Medications: Ambulatory Orders Loratadine [Claritin] 10 mg PO DAILY 08/16/11 Omeprazole Magnesium [Prilosec Otc] 20 mg PO BID 08/16/11 Topiramate [Topamax] 50 mg PO HS 09/30/17 Tizanidine HCl 2 mg PO TID 11/18/17 Cephalexin Monohydrate [Keflex -] 500 mg PO QID #30 capsule 02/20/18 Gabapentin [Neurontin -] 300 mg PO TID #90 capsule 02/20/18 oxyCODONE SR [Oxycontin] 10 mg PO BID #30 tab.er.12h MDD 2 02/20/18 Oxycodone HCl 5 mg PO QID PRN #60 tablet MDD 4 02/21/18 Review of Systems - Review of Systems Able to Perform ROS?: Yes Comments:: 03/01/18 16:53 ADULT ROS GENERAL/CONSTITUTIONAL: No fever or chills. No weakness. HEAD, EYES, EARS, NOSE AND THROAT: No change in vision. No ear pain or discharge. No sore throat. GASTROINTESTINAL: No nausea, vomiting, diarrhea or constipation. GENITOURINARY: No dysuria, frequency, or change in urination. CARDIOVASCULAR: No chest pain or shortness of breath. RESPIRATORY: No cough, wheezing, or hemoptysis. MUSCULOSKELETAL: No joint swelling or pain. No neck or back pain. (+) Right calf pain. BACK: (+) Drainage from recent L5-S1 decompression incision site. SKIN: No rash NEUROLOGIC: No headache, vertigo, loss of consciousness, or change in strength/ sensation. ENDOCRINE: No increased thirst. No abnormal weight change. HEMATOLOGIC/LYMPHATIC: No anemia, easy bleeding, or history of blood clots. ALLERGIC/IMMUNOLOGIC: No hives or skin allergy. <Ani Whiting - Last Filed: 03/01/18 16:57> *Physical Exam - Vital Signs Last Vital Signs Temp Pulse Resp BP Pulse Ox 99.8 F H 103 H 18 134/81 100 03/01/18 16:16 03/01/18 16:16 03/01/18 16:16 03/01/18 16:16 03/01/18 16:16 - Physical Exam Comments: 03/01/18 16:54 ADULT PHYSICAL EXAM Constitutional: Awake, alert, oriented. (+) Patient is uncomfortable on the stretcher. Head: Normocephalic. Atraumatic Eyes: PERRL. EOMI. Conjunctivae are not pale. ENT: Mucous membranes are moist and intact. Posterior pharynx without exudates or erythema. Uvula midline. Neck: Supple. Full ROM. No lymphadenopathy. Cardiovascular: Regular rate. Regular rhythm. S1, S2 regular. Distal pulses are 2+ and symmetric. Pulmonary/Chest: No evidence of respiratory distress. Clear to auscultation bilaterally No wheezing, rales or rhonchi. Abdominal: Soft and non-distended. There is no tenderness. No rebound, guarding or rigidity. No organomegaly. No palpable masses. Good bowel sounds. Back: No CVA tenderness. Musculoskeletal: No edema. No cyanosis. No clubbing. Full range of motion in all extremities. Nocalf tenderness. Radial/pedal pulses are intact and 2+ bilaterally Back: (+) Pinpoint area from recent L5-S1 decompression draining serosanguineous fluid with associated tenderness over the distal part of the incision. (+) Mild fluctuance to the distal end of the wound. Skin: Skin is warm and dry. No petechiae. No purpura. Neurological: Alert and oriented to person, place, and time. Cranial nerves II -XII are grossly intact. Normal speech. Strength is grossly symmetric. No sensory deficits. Psychiatric: Good eye contact. Normal interaction, affect and behavior. <Ani Whiting - Last Filed: 03/01/18 16:57> - Vital Signs Last Vital Signs Temp Pulse Resp BP Pulse Ox 99.8 F H 103 H 18 134/81 100 03/01/18 16:16 03/01/18 16:16 03/01/18 16:16 03/01/18 16:16 03/01/18 16:16 <Traci Solares - Last Filed: 03/01/18 17:45> ED Treatment Course - LABORATORY CBC & Chemistry Diagram: 03/01/18 16:55 03/01/18 16:55 <rTaci Solares - Last Filed: 03/01/18 17:45> Medical Decision Making - Medical Decision Making 03/01/18 16:41 a/p: 42yo female with recent decompression L5-s1 with Dr. Stahl with drainage from the distal end of the wound -pt has been draining since the surgery -denies fevers, but low grade temp -serous/serosanguinous/sometimes purulent drainage -no surrounding erythema -ttp over distal part of the incision -mild fluctuance to distal end of wound -will send labs, cultures -R calf pain - will obtain duplex RLE -call placed to Dr. Stahl for imaging 03/01/18 17:[address] Stahl who states the OR team will be in at 630 and he will take the patient to the OR at 7p no abx requests preop labs/ekg/cxr, noncon ct lumbar spine blood cultures pt npo discussed with the patient dr. stahl requests med consult to dr. abraham 03/01/18 17:[address] scan <Traci Solares - Last Filed: 03/01/18 17:45> *DC/Admit/Observation/Transfer - Attestations Scribe Attestion: 03/01/18 16:57 Documentation prepared by Ani Whiting, acting as medical lab specialist for Traci Solares DO. <Ani Whiting - Last Filed: 03/01/18 16:57> - Discharge Dispostion Decision to Admit order: Yes - Attestations Physician Attestion: 03/01/18 16:49 I, Dr. Traci Solares DO, attest that this document has been prepared under my direction and personally reviewed by me in its entirety. I further attest, that it accurately reflects all work, treatment, procedures and medical decision -making performed by me. <Traci Solares - Last Filed: 03/01/18 17:45> Diagnosis at time of Disposition: Post op infection - Discharge Dispostion Condition at time of disposition: Guarded
[2018-03-01] MEDS ORDERED: ACETAMINOPHEN INJECTION 100 ML IVPB ONE (17:05)
[2018-03-01 17:10] LABS: BASO % 1.1 % (0-2.0); EOS % 2.5 % (0-4.5); HEMOGLOBIN 11.1 GM/dL (10.7-15.3); LYMPH % 34.5 % (8-40); MCH 26.7 pg (25.7-33.7); MCHC 32.6 g/dl (32.0-36.0); MEAN CELL VOLUME 81.8 fl (80-96); MEAN PLT VOLUME 8.3 fl (7.5-11.1); NEUT % 57.9 % (42.8-82.8); PLATELET COUNT 397 K/MM3 (134-434); RBC 4.16 M/mm3 (3.60-5.2); RDW 15.1 % (11.6-15.6); WHITE BLOOD COUNT 8.4 K/mm3 (4.0-10.0)
[2018-03-01 17:24] LABS: INR 0.99 (0.83-1.09); PROTHROMBIN TIME (PATIENT) 11.7 SEC (9.7-13.0)
[2018-03-01 17:26] LABS: ACTIVATED PTT 33.8 SECONDS (25.2-36.5)
[2018-03-01 17:37] LABS: ALBUMIN 3.8 g/dl (3.4-5.0); ALK PHOS 78 U/L (45-117); ANION GAP 5 MMOL/L (8-16); BILIRUBIN,TOTAL 0.2 mg/dL (0.2-1); BLOOD UREA NITROGEN 10 mg/dL (7-18); CALCIUM 9.2 mg/dL (8.5-10.1); CHLORIDE 109 mmol/L (98-107); CO2 24 mmol/L (21-32); CREATININE 0.7 mg/dL (0.55-1.3); GLUCOSE,RANDOM 77 mg/dL (74-106); POTASSIUM 3.8 mmol/L (3.5-5.1); SGOT/AST 16 U/L (15-37); SGPT/ALT 18 U/L (13-61); SODIUM 138 mmol/L (136-145); TOT PROT 7.8 g/dl (6.4-8.2)
--- NOTE | 2018-03-01 17:41 | PN ---
Progress Note (short form) - Note Progress Note: NEUROSURGERY s/p L5-S1 laminectomies and PLIF 2 weeks ago/ C/o wound drainage x 1 week. Low grade temp 99.8 in ED. Intermittent chills at home. No fever. R sciatica/luis miguel tenderness. Incisional pain as expected. PE: AF,VSS low grade earlier General- unremarkable CN- intact; Motor- 4+-5/5 B LE; Sensation- intact LT; DTR- intact Wound- serous drainage from bottom of incision WBC 8.4, Hgb 11.1; Chem normal, blood cultures taken LE doppler- negative for DVT CT LS spine- postop changes L5-S1; implants in good position Lumbar wound drainage OR for exploration of laminectomies and fusion, debridement, cultures, possible lumbar drain Risks and benefits d/w patient/
[2018-03-01] MEDS ORDERED: LIDOCAINE HCL/PF 2% SDV 5ML VIAL ONE (18:23)
[2018-03-01] MEDS ORDERED: PROPOFOL 20 ML ONE ×2 (18:23→19:36)
[2018-03-01] MEDS ORDERED: MIDAZOLAM HCL 2 MG/2 ML SINGLE DOSE VIAL ONE ×2 (18:23→22:15)
[2018-03-01] MEDS ORDERED: SUCCINYLCHOLINE CHLORIDE 200 MG/10 ML VIAL ONE (18:24)
[2018-03-01] MEDS ORDERED: ROCURONIUM BROMIDE 50 MG/5 ML VIAL ONE (18:24)
[2018-03-01] MEDS ORDERED: KETOROLAC TROMETHAMINE 30 MG/1 ML VIAL ONE (18:32)
[2018-03-01] MEDS ORDERED: ONDANSETRON 4 MG/2 ML VIAL ONE (18:32)
[2018-03-01] MEDS ORDERED: ONDANSETRON 4 MG/2 ML VIAL IVPUSH PRN ×2 (18:35→21:33)
[2018-03-01] MEDS ORDERED: oxyCODONE HCL 5 MG TABLET PO PRN (18:35)
[2018-03-01] MEDS ORDERED: VANCOMYCIN 1,000 MG VIAL (RESTRICTED TO ID ONLY) ONE ×2 (18:56→19:37)
[2018-03-01] MEDS ORDERED: BACITRACIN 15 GM TUBE TOPICAL OINTMENT ONE (18:56)
[2018-03-01] MEDS ORDERED: VANCOMYCIN 1,000 MG VIAL (RESTRICTED TO ID ONLY) IVPB ONE (19:31)
[2018-03-01] MEDS ORDERED: THROMBIN (BOVINE) 5,000 UNIT VIAL TP ONE (19:36)
[2018-03-01] MEDS ORDERED: NEOSTIGMINE METHYLSULFATE 0.5 MG/ML - 10 ML MDV ONE (19:37)
[2018-03-01] MEDS ORDERED: GLYCOPYRROLATE 0.2 MG/1 ML VIAL ONE (19:37)
[2018-03-01] MEDS ORDERED: BACITRACIN 50,000 UNITS VIAL NR ONE ×2 (20:47→20:48)
[2018-03-01] MEDS ORDERED: BISACODYL 10 MG SUPP.RECT RC PRN (21:33)
--- NOTE | 2018-03-01 21:43 | OP ---
Operative Note - Note: Operative Date: 03/01/18 Pre-Operative Diagnosis: lumbar wound drainage Operation: Rexploration of L5-S1 fusion, removal of posterolateral bone grafts, harvest of new autologous bone grafts; expansion of B L5 and S1 laminectomies, foramentomies, microdissection; redo L5-S1 posterolateral fusion; lumbar drain placement at L2-3 Findings: Paraspinal and subcutaneous fluid collection; thin dura oozing CSF Post-Operative Diagnosis: Same as Pre-op Surgeon: Que Peguero Anesthesiologist/INDIGO VAT TENDER CLOTH: Joao Childers Anesthesia: General Specimens Removed: subcutaneous and epidural fluid for gram stain and culture; CSF for routine CSF studies Estimated Blood Loss (mls): 25 Operative Report Dictated: Yes
[2018-03-01] MEDS ORDERED: D5-1/2NS+20 MEQ KCL - 1,000 ML IV SCH (21:45)
[2018-03-01] MEDS ORDERED: HYDROmorphone *PCA* 10MG/50ML DISP.SYRIN PCA SCH (21:45)
[2018-03-01] MEDS ORDERED: LORazepam 2 MG/ML SDV VIAL ONE (21:55)
[2018-03-01] MEDS ORDERED: MIDAZOLAM HCL 2 MG/2 ML SINGLE DOSE VIAL IVPUSH ONE (21:57)
[2018-03-01] MEDS ORDERED: VANCOMYCIN 1 GRAM (PRE-DOCKED) 1,000 MG/250 ML BAG IVPB SCH (22:00)
[2018-03-01] MEDS ORDERED: ALBUTEROL SO4 0.083% IH SOL 2.5 MG/3 ML VIAL.NEB. NEB ONE (22:05)
--- NOTE | 2018-03-01 22:09 | PN ---
Progress Note (short form) - Note Progress Note: NEUROSURGERY In PACU Tremors PE: BP OK; O2 sat 99-100% General- unremarkable; anxious CV- RR; Lungs- upper airway noises only; Abd- benign; Ext- no sign of DVT CN- intact; Motor- 4/5 B LE; Sensation- intact LT; DTR- intact Drain CSF 10 cc in PACU Dressing intact Lumbar drain and wound drain working Findings d/w patient/ Give Ativan for anxiety Albuterol nebulizer Labs pending
[2018-03-01] MEDS ORDERED: HYDROmorphone *PCA* 10MG/50ML DISP.SYRIN PCA ONE (22:25)
[2018-03-01 22:43] LABS: CSF APPEARANCE CLEAR; CSF COLOR COLORLESS
[2018-03-01 22:44] LABS: CSF WBC 0
[2018-03-01] MEDS: D5-1/2NS+20 MEQ KCL - 20 MEQ/1,000 ML INFUS.BAG IV SCH (23:15)
[2018-03-01 23:18] LABS: GLUCOSE,CSF 54 mg/dL (40-70)
[2018-03-01 23:24] LABS: HEMOGLOBIN 10.5 GM/dL (10.7-15.3); MCH 26.9 pg (25.7-33.7); MCHC 32.8 g/dl (32.0-36.0); MEAN CELL VOLUME 81.9 fl (80-96); MEAN PLT VOLUME 8.4 fl (7.5-11.1); PLATELET COUNT 370 K/MM3 (134-434); RBC 3.91 M/mm3 (3.60-5.2); RDW 15.4 % (11.6-15.6); WHITE BLOOD COUNT 6.7 K/mm3 (4.0-10.0)
[2018-03-01 23:48] LABS: ANION GAP 7 MMOL/L (8-16); BLOOD UREA NITROGEN 9 mg/dL (7-18); CALCIUM 8.5 mg/dL (8.5-10.1); CHLORIDE 109 mmol/L (98-107); CO2 24 mmol/L (21-32); CREATININE 0.7 mg/dL (0.55-1.3); GLUCOSE,RANDOM 83 mg/dL (74-106); POTASSIUM 3.8 mmol/L (3.5-5.1); SODIUM 139 mmol/L (136-145)
--- NOTE | 2018-03-02 00:15 | CONSULT ---
Consultation: REQUESTING PROVIDER: CONSULT REQUEST: We have been asked to medically evaluate this patient for ( specify). HISTORY OF PRESENT ILLNESS: This is a 42 yo F with PMH of decompression L5-S1 [address] Peguero, who presented to ER with drainage from the incision site, possibly infected. She is now POD 0 s/p reexploration of L5-S1 fusion, removal of posterolateral bone grafts, harvest of new autologous bone grafts'; expansion of B L5 and S1 laminectomies, foramentomies, microdissection; lumbar drain placement at L2-3. EBL 25 cc. Patient is somnolent from anesthesia, afebrile and hemodynamically stable. Drain contains 10 cc serosanguineous fluid. Pain is controlled at this time. REVIEW OF SYSTEMS: CONSTITUTIONAL: unable to obtain patient is very somnolent PHYSICAL EXAMINATION Vital Signs - 24 hr 03/01/18 03/01/18 03/01/18 16:16 22:00 22:15 Temperature 99.8 F H Pulse Rate 103 H 101 H 112 H Respiratory 18 22 H 21 H Rate Blood Pressure 134/81 133/110 H 107/56 L O2 Sat by Pulse 100 100 100 Oximetry (%) 03/01/18 03/01/18 03/01/18 22:30 22:45 23:00 Temperature Pulse Rate 64 63 58 L Respiratory 13 13 11 Rate Blood Pressure 90/41 L 90/57 L 90/54 L O2 Sat by Pulse 100 100 100 Oximetry (%) 03/01/18 03/01/18 03/02/18 23:15 23:30 00:03 Temperature 98.2 F 98.2 F 98.3 F Pulse Rate 85 58 L 61 Respiratory 14 12 18 Rate Blood Pressure 90/52 L 99/60 107/66 O2 Sat by Pulse 100 Oximetry (%) GENERAL:somnolent HEAD: Normal with no signs of trauma. EYES: Pupils equal, round and reactive to light, sclera anicteric, conjunctiva clear. EARS, NOSE, THROAT: Moist mucous membranes. NECK: supple LUNGS: Breath sounds equal, clear to auscultation bilaterally. HEART: Regular rate and rhythm, normal S1 and S2 ABDOMEN: Soft, nontender, not distended, globally decreased bowel sounds MUSCULOSKELETAL: No bony deformities UPPER EXTREMITIES: 2+ pulses, warm, well-perfused. No peripheral edema. LOWER EXTREMITIES: 2+ pulses, warm, well-perfused. No peripheral edema. NEUROLOGICAL: Cranial nerves II-XII grossly intact. slurred speech PSYCHIATRIC: somnolent SKIN: Warm, dry Laboratory Results - last 24 hr 03/01/18 03/01/18 03/01/18 16:55 16:55 16:55 WBC RBC Hgb Hct MCV MCH MCHC RDW Plt Count MPV Absolute Neuts (auto) Neutrophils % Lymphocytes % Monocytes % Eosinophils % Basophils % Nucleated RBC % PT with INR 11.70 INR 0.99 PTT (Actin FS) 33.8 Sodium 138 Potassium 3.8 Chloride 109 H Carbon Dioxide 24 Anion Gap 5 L BUN 10 Creatinine 0.7 Creat Clearance w eGFR > 60 Random Glucose 77 Calcium 9.2 Total Bilirubin 0.2 AST 16 ALT 18 Alkaline Phosphatase 78 Total Protein 7.8 Albumin 3.8 Beta HCG, Quant < 1.0 CSF Appearance CSF Color CSF WBC CSF RBC CSF Neutrophils CSF Lymphocytes CSF Eosinophils CSF Basophils CSF Macrophages CSF Plasma Cells CSF Diff Comment CSF Comment CSF Glucose CSF Total Protein Blood Type O POSITIVE Antibody Screen Negative 03/01/18 03/01/18 03/01/18 16:55 21:30 23:00 WBC 8.4 6.7 RBC 4.16 3.91 Hgb 11.1 10.5 L Hct 34.0 32.0 L MCV 81.8 81.9 MCH 26.7 26.9 MCHC 32.6 32.8 RDW 15.1 15.4 Plt Count 397 D 370 MPV 8.3 D 8.4 Absolute Neuts (auto) 4.9 Neutrophils % 57.9 Lymphocytes % 34.5 Monocytes % 4.0 Eosinophils % 2.5 Basophils % 1.1 Nucleated RBC % 0 PT with INR INR PTT (Actin FS) Sodium Potassium Chloride Carbon Dioxide Anion Gap BUN Creatinine Creat Clearance w eGFR Random Glucose Calcium Total Bilirubin AST ALT Alkaline Phosphatase Total Protein Albumin Beta HCG, Quant CSF Appearance Clear CSF Color Colorless CSF WBC 0 CSF RBC 0 CSF Neutrophils No Result Required. CSF Lymphocytes No Result Required. CSF Eosinophils No Result Required. CSF Basophils No Result Required. CSF Macrophages No Result Required. CSF Plasma Cells No Result Required. CSF Diff Comment No Result Required. CSF Comment No Result Required. CSF Glucose 54 CSF Total Protein 33 Blood Type Antibody Screen 03/01/18 23:00 WBC RBC Hgb Hct MCV MCH MCHC RDW Plt Count MPV Absolute Neuts (auto) Neutrophils % Lymphocytes % Monocytes % Eosinophils % Basophils % Nucleated RBC % PT with INR INR PTT (Actin FS) Sodium 139 Potassium 3.8 Chloride 109 H Carbon Dioxide 24 Anion Gap 7 L BUN 9 Creatinine 0.7 Creat Clearance w eGFR > 60 Random Glucose 83 Calcium 8.5 Total Bilirubin AST ALT Alkaline Phosphatase Total Protein Albumin Beta HCG, Quant CSF Appearance CSF Color CSF WBC CSF RBC CSF Neutrophils CSF Lymphocytes CSF Eosinophils CSF Basophils CSF Macrophages CSF Plasma Cells CSF Diff Comment CSF Comment CSF Glucose CSF Total Protein Blood Type Antibody Screen Active Medications Generic Name Dose Route Start Last Admin Trade Name Freq PRN Reason Stop Dose Admin Acetaminophen 650 mg 03/01/18 21:33 Tylenol - PO Q6H PRN FEVER Bisacodyl 10 mg 03/01/18 21:33 Dulcolax Suppository - RC DAILY PRN CONSTIPATION Diazepam 5 mg 03/01/18 22:15 Valium - PO TID MARY Docusate Sodium 100 mg 03/01/18 22:00 Colace - PO TID MARY Fentanyl 50 mcg 03/01/18 18:35 03/01/18 22:25 Sublimaze Injection - IVPUSH 50 mcg [id number] PRN Administration PAIN-PACU ORDER X 4 DOSES ONLY Gabapentin 300 mg 03/01/18 22:00 Neurontin - PO TID MARY Hydromorphone HCl 10 mg 03/01/18 21:45 03/01/18 23:00 Dilaudid Job Analysis Manager - DEPUTY GRAND JURY 03/08/18 21:40 10 mg DEPUTY GRAND JURY MARY Administration Protocol Lactated Ringer's 1,000 mls @ 75 mls/hr 03/01/18 18:45 Lactated Ringers Solution IV ASDIR MARY Potassium Chloride/Dextrose/Sod Cl 20 meq in 1,000 mls @ 100 mls/hr 03/01/18 21:45 03/01/18 23:15 D5-1/2ns+20 Meq Kcl - IV 0 mls ASDIR MARY Administration Potassium Chloride/Dextrose/Sod Cl 1,000 mls @ 42 mls/hr 03/01/18 21:45 D5-1/2ns+20 Meq Kcl - IV ASDIR MARY Piperacillin Sod/Tazobactam 50 mls @ 100 mls/hr 03/01/18 22:45 Sod 3.375 gm/ Dextrose IVPB Q6H-IV MARY Protocol Loratadine 10 mg 03/02/18 10:00 Claritin - PO DAILY MARY Ondansetron HCl 4 mg 03/01/18 18:35 Zofran Injection IVPUSH Q6H PRN NAUSEA AND/OR VOMITING Ondansetron HCl 4 mg 03/01/18 21:33 Zofran Injection IVPUSH Q6H PRN NAUSEA AND/OR VOMITING Oxycodone HCl 10 mg 03/01/18 18:35 Roxicodone - PO Q4H PRN PAIN LEVEL 6-10 Oxycodone HCl 5 mg 03/01/18 18:35 Roxicodone - PO Q4H PRN PAIN LEVEL 1-5 Oxycodone HCl 10 mg 03/01/18 22:00 Oxycontin - PO BID MARY Pantoprazole Sodium 20 mg 03/01/18 22:00 Protonix - PO BID MARY Topiramate 50 mg 03/01/18 22:15 Topamax - PO HS MARY Vancomycin HCl 1,000 mg 03/01/18 22:00 Vancomycin (Pre-Docked) IVPB Q12H MARY Protocol ASSESSMENT/PLAN: This is a 42 yo F with PMH of decompression L5-S1 [address] Peguero, who presented to ER with drainage from the incision site. POD 0 s/p reexploration of L5-S1 fusion, removal of posterolateral bone grafts, harvest of new autologous bone grafts'; expansion of B L5 and S1 laminectomies, foramentomies, microdissection; lumbar drain placement at L2-3. Possible surgical wound infection -pain control with dilaudid oil field pumper, oxycodone and tylenol, neurontin -Ativan for anxiety -Albuterol nebulizer PRN, incentive spirometer -f/u post op labs -delores negro -neuro checks q4h -no leukocytosis; ppx vanco zosyn -D5 1/2 ns 20 kcl @ 100 -bedrest -npo except meds Dispo: We will continue to follow the patient. Thank you for this consultative opportunity. Problem List - Problems (1) History of laminectomy Code(s): Z98.890 - OTHER SPECIFIED POSTPROCEDURAL STATES (2) Post op infection Code(s): T81.40XA - INFECTION FOLLOWING A PROCEDURE, UNSPECIFIED, INIT Visit type - Emergency Visit Emergency Visit: Yes ED Registration Date: 03/01/18 Care time: The patient presented to the Emergency Department on the above date and was hospitalized for further evaluation of their emergent condition. - New Patient This patient is new to me today: Yes Date on this admission: 03/02/18 - Critical Care Critical Care patient: Yes Total Critical Care Time (in minutes): 35 Critical Care Statement: The care of this patient involved high complexity decision making to prevent further life threatening deterioration of the patient 's condition and/or to evaluate & treat vital organ system(s) failure or risk of failure.
[2018-03-02] MEDS: LACTATED RINGERS SOLUTION 1,000 ML IV SCH ×3 (01:00→08:00)
[2018-03-02] MEDS ORDERED: SODIUM CHLORIDE 500 ML IV STA (01:53)
[2018-03-02] MEDS: GABAPENTIN 300 MG CAPSULE (FP) PO SCH ×4 (03:12→22:14)
[2018-03-02] MEDS: DOCUSATE SODIUM 100 MG CAPSULE (FP) PO SCH ×4 (03:12→22:15)
[2018-03-02] MEDS: oxyCODONE HCL 10 MG SUSTAINED ACTING TABLET PO SCH ×3 (03:12→22:15)
[2018-03-02] MEDS: PANTOPRAZOLE 20 MG TABLET (FP) PO SCH ×3 (03:12→22:13)
[2018-03-02] MEDS: TOPIRAMATE 25 MG TABLET (FP) PO SCH ×2 (03:13→22:14)
[2018-03-02] MEDS: diazePAM 5 MG TABLET PO SCH ×4 (03:15→22:15)
[2018-03-02] MEDS: PIPERACILLIN/TAZOB 3.375 GM 3.375 GM in DEXTROSE 5%-WATER - 50 ML IVPB SCH ×3 (03:18→10:23)
[2018-03-02] MEDS ORDERED: DEXTROSE 5%-WATER - 50 ML IVPB ONE ×3 (03:21→17:38)
[2018-03-02] MEDS ORDERED: PIPERACILLIN/TAZOBACTAM 3.375 GM VIAL IVPB ONE ×3 (03:21→17:37)
[2018-03-02] MEDS: D5-1/2NS+20 MEQ KCL - 20 MEQ/1,000 ML INFUS.BAG IV SCH (04:51)
[2018-03-02] MEDS ORDERED: SODIUM CHLORIDE 1,000 ML IV STA (06:57)
[2018-03-02 07:25] LABS: ALBUMIN 2.4 g/dl (3.4-5.0); ALK PHOS 48 U/L (45-117); ANION GAP 1 MMOL/L (8-16); BILIRUBIN,TOTAL 0.3 mg/dL (0.2-1); BLOOD UREA NITROGEN 9 mg/dL (7-18); CALCIUM 7.7 mg/dL (8.5-10.1); CHLORIDE 114 mmol/L (98-107); CO2 23 mmol/L (21-32); CREATININE 0.6 mg/dL (0.55-1.3); GLUCOSE,RANDOM 75 mg/dL (74-106); MAGNESIUM 1.7 mg/dL (1.8-2.4); PHOSPHOROUS 4.2 mg/dL (2.5-4.9); SGOT/AST 12 U/L (15-37); SGPT/ALT 12 U/L (13-61); SODIUM 139 mmol/L (136-145)
[2018-03-02 07:30] LABS: BASO % 0.5 % (0-2.0); EOS % 3.5 % (0-4.5); HEMATOCRIT 25.7 % (32.4-45.2); HEMOGLOBIN 8.3 GM/dL (10.7-15.3); LYMPH % 40.1 % (8-40); MCH 26.4 pg (25.7-33.7); MCHC 32.1 g/dl (32.0-36.0); MEAN CELL VOLUME 82.1 fl (80-96); MEAN PLT VOLUME 8.6 fl (7.5-11.1); MONO % 4.2 % (3.8-10.2); NEUT % 51.7 % (42.8-82.8); PLATELET COUNT 237 K/MM3 (134-434); RBC 3.13 M/mm3 (3.60-5.2); RDW 14.9 % (11.6-15.6); WHITE BLOOD COUNT 5.9 K/mm3 (4.0-10.0)
[2018-03-02] MEDS ORDERED: MAGNESIUM SULF 50% (8.12 MEQ/2 ML-1 GM VIAL) IVPB ONE (08:30)
--- NOTE | 2018-03-02 09:04 | CON.ID ---
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, discharged 02/17 on keflex 500 qid developed drainage from the back about 7 to 10 days ago some chills at home she didnt want to bother her doctor so she didnt call him until her sister urged her to yesterday- so she finally called him yesterday and came to the ED she went to the OR last night for exploration of the wound, removal of bone grafts, lumbar drain placement awake and alert - History Source History Provided By: Patient, Medical Record Limitations to Obtaining History: No Limitations - Past Medical History LEAD JAVASCRIPT DEVELOPER: Yes: Migraine Gastrointestinal: Yes: GERD ...LMP: 02/12/18 - Past Surgical History Past Surgical History: Yes: Additional Surgical History: anterior cervical laminectom 2016 - Alcohol/Substance Use Hx Alcohol Use: No - Smoking History Smoking history: Current every day smoker Have you smoked in the past 12 months: Yes Aproximately how many cigarettes per day: 10 - Social History Usual Living Arrangement: With Spouse ADL: Independent Occupation: RN History of Recent Travel: No Home Medications - Allergies Allergies/Adverse Reactions: Allergies Allergy/AdvReac Type Severity Reaction Status Date / Time ciprofloxacin Allergy Severe "anaphylaxi Verified 03/01/18 16:19 s" levofloxacin [Levofloxacin] Allergy Severe "anaphylaxi Verified 03/01/18 16:19 s" - Home Medications Home Medications: Ambulatory Orders Loratadine [Claritin] 10 mg PO DAILY 08/16/11 Omeprazole Magnesium [Prilosec Otc] 20 mg PO BID 08/16/11 Topiramate [Topamax] 50 mg PO HS 09/30/17 Tizanidine HCl 2 mg PO TID 11/18/17 Cephalexin Monohydrate [Keflex -] 500 mg PO QID #30 capsule 02/20/18 Gabapentin [Neurontin -] 300 mg PO TID #90 capsule 02/20/18 oxyCODONE SR [Oxycontin] 10 mg PO BID #30 tab.er.12h MDD 2 02/20/18 Oxycodone HCl 5 mg PO QID PRN #60 tablet MDD 4 02/21/18 Review of Systems - Review of Systems Constitutional: reports: Chills Eyes: reports: No Symptoms HENT: reports: No Symptoms Neck: reports: No Symptoms Cardiovascular: reports: No Symptoms Respiratory: reports: No Symptoms. denies: Cough, SOB Gastrointestinal: reports: No Symptoms Genitourinary: reports: No Symptoms Musculoskeletal: reports: Back Pain Physical Exam Vital Signs: Vital Signs Temperature 98.6 F 03/02/18 06:00 Pulse Rate 60 03/02/18 08:00 Respiratory Rate 24 H 03/02/18 08:00 Blood Pressure 101/58 L 03/02/18 08:00 O2 Sat by Pulse Oximetry (%) 100 03/02/18 01:00 Constitutional: Yes: Well Nourished, No Distress, Calm Eyes: Yes: Conjunctiva Clear, EOM Intact HENT: Yes: Atraumatic, Normocephalic Neck: Yes: Supple Cardiovascular: Yes: Regular Rate and Rhythm Respiratory: Yes: Regular, CTA Bilaterally Gastrointestinal: Yes: Normal Bowel Sounds, Soft Edema: No Wound/Incision: Yes: Other (dressing on back- 2 drains, lumbar and csf) Psychiatric: Yes: Alert, Oriented Labs: CBC, BMP 03/02/18 05:30 03/02/18 05:30 cultures all pending Imaging - Results Cat Scan: Report Reviewed Problem List - Problems (1) Post op infection Code(s): T81.40XA - INFECTION FOLLOWING A PROCEDURE, UNSPECIFIED, INIT (2) History of laminectomy Code(s): Z98.890 - OTHER SPECIFIED POSTPROCEDURAL STATES Assessment/Plan lulmbar wound drainage s/p laminectomy 2 weeks ago s/p operative exploration drains in place operative cultures sent continue vancomycin and zosyn d/w Dr Stahl will follow with you d/w patient at length
[2018-03-02] MEDS: LORATADINE 10 MG TABLET PO SCH (09:31)
--- NOTE | 2018-03-02 09:46 | PN ---
Progress Note (short form) - Note Progress Note: NEUROSURGERY POD #1 R calf pain better; some L anterior thigh pain PE: T 98.6, AF, VSS Wound drain (deep) with minimal output CSF- 10 c output/hr General- unremarkable CV- RRR; Lungs- CTA B; Abd- benign; Ext- no sign of DVT CN- intact; Motor- 4+-5/5 B LE; Sensation- intact LT; DTR- intact Wound- serosangrenous drainage from incision, dressing changed WBC 5.9, Hgb 8.3 this am despite minimal intraop blood loss Superficial and deep wound cultures pending CSF gram stain negative, culture pending LE doppler- negative for DVT CT LS spine- postop changes L5-S1; implants in good position Bedrest/HOB flat Cont lumbar drain for at least 72 hours total D/C wound drain tomorrow if still minimal output Findings d/w pt Cont HUMAN RESOURCES OFFICE ASSISTANT on demand only and valium Bowel regimen Clear liquids, adv as tolerated Does not wish transfusion, add MVI and iron Appreciate Dr Gayle's input
--- NOTE | 2018-03-02 09:48 | OP ---
DATE OF OPERATION: 03/01/2018 PREOPERATIVE DIAGNOSIS: 1. Status post L5-S1 interbody fusion and instrumentation. 2. Postoperative wound drainage. 3. Recurrent right L5-S1 radiculopathy. 4. Rule out infection versus cerebral spinal fluid loss. POSTOPERATIVE DIAGNOSIS: 1. Status post L5-S1 interbody fusion and instrumentation. 2. Postoperative wound drainage. 3. Recurrent right L5-S1 radiculopathy. 4. Rule out infection versus cerebral spinal fluid loss. ATTENDING SURGEON: Que Peguero MD PROCEDURE: 1. Re-aspiration and extension of bilateral L5 and S1 laminectomy for decompression of thecal sac as well as the right bilateral L5 and S1 nerve roots ([id number], 08317-03). 2. Cayce of autologous local bone graft (34730). 3. Microsurgical dissection with the operating microscope with microsurgical technique (09917). 4. Lumbar drain placement at L2-L3 (73305). 5. Posterolateral redo of bone graft fusion at L5-S1 (95350). ESTIMATED BLOOD LOSS: 25 mL. FINDINGS: 1. Extremely thin dura with CSF oozing and with no distinct CSF fistula, which could be repaired directly. 2. Subcutaneous repair of paraspinal fluid. INDICATIONS: The patient is a 42-year-old female who previously had undergone lumbar L5-S1 fusion approximately 2 weeks earlier. She has developed a postoperative wound drainage and had chills at home. She is admitted for emergency exploration and possible placement of lumbar drain, possible removal and re-instrumentation and all indicated procedures. The risks of her procedure including, but not limited to bleeding, infection, dural tear with CSF leak, neurological injury, increased thromboembolic risks, and other risks of general anesthesia. The patient understands the indications for the procedure, procedure in detail, risks and benefits, and alternatives for treatment of her lumbar condition, and wished to proceed. No guarantees were given for a favorable outcome. PROCEDURE IN DETAIL: The patient was taken to the operating room. She was placed in the supine position. After general anesthesia was induced and appropriate lines were placed, a Ha catheter was inserted. She was then turned into the prone position on a Paulie frame. All pressure points were checked and padded. Lumbar region was cleaned with alcohol, Hibiclens, and then prepped with Betadine. The skin itself looks healthy. However, there is a slight dehiscence on the bottom with serous fluid draining. The prior incision, after the patient was prepped and draped, the skin was opened with a number 10-blade. Approximately a 0.5-inch incision was extended cephalad and caudally to gain better closure after decompression. A fair amount of subcutaneous fluid was noted. It was slight yellowish in color, but was not foul smelling. It was sent for gram stain and culture. A self-retaining retractor was inserted. The dorsal lumbar fascia sutures were then removed with Monroe scissors. At this point, deeper layer of fluid in the epidural space was also taken for gram stain and culture. The suture material was removed. Self retaining retractors were then repositioned. Posterolateral bone grafts were removed with pituitary rongeurs. At this point, epidural fluid was noted and the previously placed Duragen was removed with bayonetted forceps. There was no distinctive location of CSF leak, but the dura is extremely thin and CSF is emanating from almost the entire dorsal dural surface at L5. At this point, the dura was covered up with cottonoids. The wound was irrigated with 3 L of vancomycin and bacitracin continuous irrigation with a pulse jet platform material handling supervisor obturator. Soft tissue as well as paraspinal tissue as well as the laminal bone were debrided with the pulse jet platform material handling supervisor. The microscope was brought in at this point for both illumination and magnification. Because of the patient's right lower extremity recurrent sciatica, a right-sided L5 and S1 nerve roots were skeletonized and bilateral foraminotomy was carried out at the L5-S1. Further laminectomy at each level was carried out at left side as well. Autologous bone graft was saved and morselized. The L5-S1 nerve roots were followed towards the respective neural foramen. At this point, further irrigation at the L5-S1 area was carried out. With the use of a trocar and Touhy needle, the L2-L3 interspinous space was accessed to stay as far away from the laminectomy as possible. The intradural and intrathecal space was reached and the needle bevel was turned cephalad. The intrathecal catheter was placed to approximately 15 cm from the tip of the spinous process. The foramen came out through a separate stab incision after the spinal needle was removed. CSF appeared clear. It was sent for glucose, protein, cell count, gram stain and culture. At this point, the lumbar drain was secured with a hub and sutures. Then, attention was turned to the L5-S1 fusion where the instrumentation system was inspected and was further irrigated with antibiotic irrigation. The posterolateral bone graft was removed previously and the newly harvested autologous bone graft was morselized and placed on the posterolateral aspect of the spine for fusion. 10 mL of CSF was drained every hour after the drain placement. A layer of DuraSeal was laid into the epidural space. A piece of Duragen was placed on top of the DuraSeal. Medium Hemovac was placed in the epidural space and the paraspinal space as a postoperative drain. This came out through a separate stab incision on the left side as well. At this point, dorsal lumbar fascia was closed with 0 Vicryl suture, closed in an interrupted then running manner. The subcutaneous fascia was closed with 3-0 Vicryl suture and the skin was closed with a 4-0 Vicryl running subcuticular suture. Steri-Strips and a sterile occlusive dressing were applied. A drain sponge was also placed under the lumbar drain and deep wound drain. Both drains were secured with 3-0 Prolene sutures. Steri-Strips and a sterile occlusive dressing were applied. Drains were connected with the collecting chamber/ tubing. The patient tolerated the procedure well, was turned back to a supine position and extubated. She was moving bilateral lower extremities well in the recovery room. All needle and lap counts were correct. The timeout procedure was followed. She received one dose of 1 g of vancomycin prior to the incision. The patient will be placed on vancomycin and Zosyn immediately postoperatively and Infectious Disease consultation was called. The patient 's was updated as to the intraoperative findings as well as the patient's postoperative condition. Nelly [id number] MTDMarietta
[2018-03-02] MEDS ORDERED: PIPERACILLIN/TAZOB 3.375 GM 4.5 GM in DEXTROSE 5%-WATER - 50 ML IVPB SCH (10:00)
[2018-03-02] MEDS: VANCOMYCIN 1,250 MG in DEXTROSE 5%-WATER - 250 ML IVPB SCH ×2 (10:15→22:14)
[2018-03-02] MEDS: MULTIVITAMINS (DAILY MVI) TABLET (FP) PO SCH (10:15)
--- NOTE | 2018-03-02 12:39 | PN ---
Teaching Attending Note Name of Resident: Hardeep Heck ATTENDING PHYSICIAN STATEMENT I saw and evaluated the patient. I reviewed the resident's note and discussed the case with the resident. I agree with the resident's findings and plan as documented. SUBJECTIVE: Patient seen and examined in the ICU. Awake and alert. Some mild discomfort that the surgical site. Seen by Neurosurgery this AM. No CP or SOB. Some congested cough. Intake & Output 02/27/18 02/28/18 03/01/18 03/02/18 23:59 23:59 23:59 23:59 Intake Total 300 2750 Output Total 925 400 Balance -625 2350 Weight 172 lb 187 lb 6.287 oz Last Vital Signs Temp Pulse Resp BP Pulse Ox 98.6 F 62 13 108/70 100 03/02/18 06:00 03/02/18 12:00 03/02/18 12:00 03/02/18 12:00 03/02/18 01:00 Active Medications Acetaminophen (Tylenol -) 650 mg PO Q6H PRN PRN Reason: FEVER Bisacodyl (Dulcolax Suppository -) 10 mg RC DAILY PRN PRN Reason: CONSTIPATION Diazepam (Valium -) 5 mg PO TID [facility] Last Admin: 03/02/18 06:11 Dose: 5 mg Docusate Sodium (Colace -) 100 mg PO TID [facility] Last Admin: 03/02/18 06:11 Dose: 100 mg Fentanyl (Sublimaze Injection -) 50 mcg IVPUSH [id number] PRN PRN Reason: PAIN-PACU ORDER X 4 DOSES ONLY Last Admin: 03/01/18 22:25 Dose: 50 mcg Gabapentin (Neurontin -) 300 mg PO TID [facility] Last Admin: 03/02/18 06:11 Dose: 300 mg Hydromorphone HCl (Dilaudid Wringer Machine Operator -) 10 mg SQL SERVER CONSULTANT SQL SERVER CONSULTANT [facility]; Protocol Stop: 03/08/18 21:40 Last Admin: 03/01/18 23:00 Dose: 10 mg Lactated Ringer's (Lactated Ringers Solution) 1,000 mls @ 100 mls/hr IV ASDIR [facility] Last Admin: 03/02/18 08:00 Dose: 100 mls/hr Vancomycin HCl 1,250 mg/ (Dextrose) 250 mls @ 166.667 mls/hr IVPB BID [facility]; Protocol Last Admin: 03/02/18 10:15 Dose: 166.667 mls/hr Piperacillin Sod/Tazobactam (Sod 4.5 gm/ Dextrose) 50 mls @ 100 mls/hr IVPB Q8H -IV MARY; Protocol Last Admin: 03/02/18 10:15 Dose: 100 mls/hr Loratadine (Claritin -) 10 mg PO DAILY [facility] Last Admin: 03/02/18 09:31 Dose: 10 mg Multivitamins/Minerals/Vitamin C (Tab-A-Vit -) 1 tab PO DAILY [facility] Last Admin: 03/02/18 10:15 Dose: 1 tab Ondansetron HCl (Zofran Injection) 4 mg IVPUSH Q6H PRN PRN Reason: NAUSEA AND/OR VOMITING Ondansetron HCl (Zofran Injection) 4 mg IVPUSH Q6H PRN PRN Reason: NAUSEA AND/OR VOMITING Oxycodone HCl (Roxicodone -) 10 mg PO Q4H PRN PRN Reason: PAIN LEVEL 6-10 Oxycodone HCl (Roxicodone -) 5 mg PO Q4H PRN PRN Reason: PAIN LEVEL 1-5 Oxycodone HCl (Oxycontin -) 10 mg PO BID [facility] Last Admin: 03/02/18 09:30 Dose: 10 mg Pantoprazole Sodium (Protonix -) 20 mg PO BID [facility] Last Admin: 03/02/18 09:30 Dose: 20 mg Topiramate (Topamax -) 50 mg PO HS [facility] Last Admin: 03/02/18 03:13 Dose: Not Given GENERAL: Awake and alert HEAD: Posterior drain intact EYES: Sclera anicteric, conjunctiva clear. EARS, NOSE, THROAT: Moist mucous membranes. NECK: supple LUNGS: Breath sounds equal, clear to auscultation bilaterally. HEART: Regular rate and rhythm, normal S1 and S2 ABDOMEN: Soft, nontender, not distended, globally decreased bowel sounds MUSCULOSKELETAL: No bony deformities UPPER EXTREMITIES: 2+ pulses, warm, well-perfused. No peripheral edema. LOWER EXTREMITIES: 2+ pulses, warm, well-perfused. No peripheral edema. NEUROLOGICAL: Non-focal SKIN: Warm, dry Laboratory Results - last 24 hr 03/01/18 03/01/18 03/01/18 16:55 16:55 16:55 WBC RBC Hgb Hct MCV MCH MCHC RDW Plt Count MPV Absolute Neuts (auto) Neutrophils % Lymphocytes % Monocytes % Eosinophils % Basophils % Nucleated RBC % PT with INR 11.70 INR 0.99 PTT (Actin FS) 33.8 Sodium 138 Potassium 3.8 Chloride 109 H Carbon Dioxide 24 Anion Gap 5 L BUN 10 Creatinine 0.7 Creat Clearance w eGFR > 60 Random Glucose 77 Calcium 9.2 Phosphorus Magnesium Total Bilirubin 0.2 AST 16 ALT 18 Alkaline Phosphatase 78 Total Protein 7.8 Albumin 3.8 Beta HCG, Quant < 1.0 CSF Appearance CSF Color CSF WBC CSF RBC CSF Neutrophils CSF Lymphocytes CSF Eosinophils CSF Basophils CSF Macrophages CSF Plasma Cells CSF Diff Comment CSF Comment CSF Glucose CSF Total Protein Blood Type O POSITIVE Antibody Screen Negative 03/01/18 03/01/18 03/01/18 16:55 21:30 23:00 WBC 8.4 6.7 RBC 4.16 3.91 Hgb 11.1 10.5 L Hct 34.0 32.0 L MCV 81.8 81.9 MCH 26.7 26.9 MCHC 32.6 32.8 RDW 15.1 15.4 Plt Count 397 D 370 MPV 8.3 D 8.4 Absolute Neuts (auto) 4.9 Neutrophils % 57.9 Lymphocytes % 34.5 Monocytes % 4.0 Eosinophils % 2.5 Basophils % 1.1 Nucleated RBC % 0 PT with INR INR PTT (Actin FS) Sodium Potassium Chloride Carbon Dioxide Anion Gap BUN Creatinine Creat Clearance w eGFR Random Glucose Calcium Phosphorus Magnesium Total Bilirubin AST ALT Alkaline Phosphatase Total Protein Albumin Beta HCG, Quant CSF Appearance Clear CSF Color Colorless CSF WBC 0 CSF RBC 0 CSF Neutrophils No Result Required. CSF Lymphocytes No Result Required. CSF Eosinophils No Result Required. CSF Basophils No Result Required. CSF Macrophages No Result Required. CSF Plasma Cells No Result Required. CSF Diff Comment No Result Required. CSF Comment No Result Required. CSF Glucose 54 CSF Total Protein 33 Blood Type Antibody Screen 03/01/18 03/02/18 03/02/18 23:00 05:30 05:30 WBC 5.9 RBC 3.13 L Hgb 8.3 L Hct 25.7 L D MCV 82.1 MCH 26.4 MCHC 32.1 RDW 14.9 Plt Count 237 D MPV 8.6 Absolute Neuts (auto) 3.0 Neutrophils % 51.7 Lymphocytes % 40.1 H Monocytes % 4.2 Eosinophils % 3.5 Basophils % 0.5 Nucleated RBC % 0 PT with INR INR PTT (Actin FS) Sodium 139 139 Potassium 3.8 4.0 Chloride 109 H 114 H Carbon Dioxide 24 23 Anion Gap 7 L 1 L BUN 9 9 Creatinine 0.7 0.6 Creat Clearance w eGFR > 60 > 60 Random Glucose 83 75 Calcium 8.5 7.7 L Phosphorus 4.2 Magnesium 1.7 L Total Bilirubin 0.3 AST 12 L ALT 12 L Alkaline Phosphatase 48 Total Protein 5.0 L Albumin 2.4 L Beta HCG, Quant CSF Appearance CSF Color CSF WBC CSF RBC CSF Neutrophils CSF Lymphocytes CSF Eosinophils CSF Basophils CSF Macrophages CSF Plasma Cells CSF Diff Comment CSF Comment CSF Glucose CSF Total Protein Blood Type Antibody Screen Problem List - Problems (1) History of laminectomy Code(s): Z98.890 - OTHER SPECIFIED POSTPROCEDURAL STATES (2) Post op infection Code(s): T81.40XA - INFECTION FOLLOWING A PROCEDURE, UNSPECIFIED, INIT ASSESSMENT/PLAN: POD #1 S/P Re-exploration of L5-S1 fusion Removal of posterolateral bone grafts [place] of new autologous bone grafts / expansion of L5 and S1 laminectomies / foramentomies / microdissection Lumbar drain placement at L2-3. Possible surgical wound infection Pain control VTE prophylaxis O2 as needed Incentive Spirometry Albuterol nebulizer PRN Neuro checks q4h ABX per ID Dr Dasilva
--- NOTE | 2018-03-02 13:51 | PN ---
Progress Note (short form) - Note Progress Note: Anesthesia POD#1 S/P Lumbar Wound exploration and Debridement under GA and Dilaudid RETAIL SUPPORT SPECIALIST VSS,drowsy,started oral liquids,no N/V, Hg dropped,agreed to DC the IV RETAIL SUPPORT SPECIALIST Plan Discontinue the RETAIL SUPPORT SPECIALIST, oral pain meds can be taken. Eunice Hernandez MD.
--- NOTE | 2018-03-02 14:00 | PN ---
Physical Exam: SUBJECTIVE: Patient seen and examined at bedside. Drowsy in resaw operator. Awake and alert to voice. Pain at surgical site, mild nausea, no other complaints. Urinating through hernadez, no flatus as yet. OBJECTIVE: Vital Signs Period Temp Pulse Resp BP Sys/Streeter Pulse Ox Last 24 Hr 98.2 F-99.8 F 56-112 11-28 84-134/41-110 100-100 GENERAL: A&Ox3, NAD HEAD: NC/AT EYES: PERRLA, EOMI EARS, NOSE, THROAT: Moist mucous membranes. NECK: supple, full ROM, no LAD, no CAD LUNGS: CTA b/l HEART: RRR no m/r/g ABDOMEN: hypoactive bowel sounds, soft, NTND EXTREMITIES: 2+ pulses, warm, well-perfused. No peripheral edema. NEUROLOGICAL: CN II-XII intact b/l, 4+ strength x 4 extremities, sensation intact throughout PSYCHIATRIC: drowsy otherwise appropriate mood, affect SKIN: Warm, dry, no rashes, lesions, murmurs : hernadez in place draining 900cc over 24 hours DRAINS: L2-L3 lumbar drain, 50ccs; wound drain, 0 Laboratory Results - last 24 hr 03/01/18 03/01/18 03/01/18 16:55 16:55 16:55 WBC RBC Hgb Hct MCV MCH MCHC RDW Plt Count MPV Absolute Neuts (auto) Neutrophils % Lymphocytes % Monocytes % Eosinophils % Basophils % Nucleated RBC % PT with INR 11.70 INR 0.99 PTT (Actin FS) 33.8 Sodium 138 Potassium 3.8 Chloride 109 H Carbon Dioxide 24 Anion Gap 5 L BUN 10 Creatinine 0.7 Creat Clearance w eGFR > 60 Random Glucose 77 Calcium 9.2 Phosphorus Magnesium Total Bilirubin 0.2 AST 16 ALT 18 Alkaline Phosphatase 78 Total Protein 7.8 Albumin 3.8 Beta HCG, Quant < 1.0 CSF Appearance CSF Color CSF WBC CSF RBC CSF Neutrophils CSF Lymphocytes CSF Eosinophils CSF Basophils CSF Macrophages CSF Plasma Cells CSF Diff Comment CSF Comment CSF Glucose CSF Total Protein Blood Type O POSITIVE Antibody Screen Negative 03/01/18 03/01/18 03/01/18 16:55 21:30 23:00 WBC 8.4 6.7 RBC 4.16 3.91 Hgb 11.1 10.5 L Hct 34.0 32.0 L MCV 81.8 81.9 MCH 26.7 26.9 MCHC 32.6 32.8 RDW 15.1 15.4 Plt Count 397 D 370 MPV 8.3 D 8.4 Absolute Neuts (auto) 4.9 Neutrophils % 57.9 Lymphocytes % 34.5 Monocytes % 4.0 Eosinophils % 2.5 Basophils % 1.1 Nucleated RBC % 0 PT with INR INR PTT (Actin FS) Sodium Potassium Chloride Carbon Dioxide Anion Gap BUN Creatinine Creat Clearance w eGFR Random Glucose Calcium Phosphorus Magnesium Total Bilirubin AST ALT Alkaline Phosphatase Total Protein Albumin Beta HCG, Quant CSF Appearance Clear CSF Color Colorless CSF WBC 0 CSF RBC 0 CSF Neutrophils No Result Required. CSF Lymphocytes No Result Required. CSF Eosinophils No Result Required. CSF Basophils No Result Required. CSF Macrophages No Result Required. CSF Plasma Cells No Result Required. CSF Diff Comment No Result Required. CSF Comment No Result Required. CSF Glucose 54 CSF Total Protein 33 Blood Type Antibody Screen 03/01/18 03/02/18 03/02/18 23:00 05:30 05:30 WBC 5.9 RBC 3.13 L Hgb 8.3 L Hct 25.7 L D MCV 82.1 MCH 26.4 MCHC 32.1 RDW 14.9 Plt Count 237 D MPV 8.6 Absolute Neuts (auto) 3.0 Neutrophils % 51.7 Lymphocytes % 40.1 H Monocytes % 4.2 Eosinophils % 3.5 Basophils % 0.5 Nucleated RBC % 0 PT with INR INR PTT (Actin FS) Sodium 139 139 Potassium 3.8 4.0 Chloride 109 H 114 H Carbon Dioxide 24 23 Anion Gap 7 L 1 L BUN 9 9 Creatinine 0.7 0.6 Creat Clearance w eGFR > 60 > 60 Random Glucose 83 75 Calcium 8.5 7.7 L Phosphorus 4.2 Magnesium 1.7 L Total Bilirubin 0.3 AST 12 L ALT 12 L Alkaline Phosphatase 48 Total Protein 5.0 L Albumin 2.4 L Beta HCG, Quant CSF Appearance CSF Color CSF WBC CSF RBC CSF Neutrophils CSF Lymphocytes CSF Eosinophils CSF Basophils CSF Macrophages CSF Plasma Cells CSF Diff Comment CSF Comment CSF Glucose CSF Total Protein Blood Type Antibody Screen Active Medications Generic Name Dose Route Start Last Admin Trade Name Freq PRN Reason Stop Dose Admin Acetaminophen 650 mg 03/01/18 21:33 Tylenol - PO Q6H PRN FEVER Bisacodyl 10 mg 03/01/18 21:33 Dulcolax Suppository - RC DAILY PRN CONSTIPATION Diazepam 5 mg 03/01/18 22:15 03/02/18 06:11 Valium - PO 5 mg TID MARY Administration Docusate Sodium 100 mg 03/01/18 22:00 03/02/18 06:11 Colace - PO 100 mg TID MARY Administration Fentanyl 50 mcg 03/01/18 18:35 03/01/18 22:25 Sublimaze Injection - IVPUSH 50 mcg [id number] PRN Administration PAIN-PACU ORDER X 4 DOSES ONLY Gabapentin 300 mg 03/01/18 22:00 03/02/18 06:11 Neurontin - PO 300 mg TID MARY Administration Hydromorphone HCl 10 mg 03/01/18 21:45 03/01/18 23:00 Dilaudid Tube Winder Hand - COMPLIANCE ENGINEER PRODUCTS 03/08/18 21:40 10 mg COMPLIANCE ENGINEER [employer]ODUCTS MARY Administration Protocol Lactated Ringer's 1,000 mls @ 100 mls/hr 03/02/18 07:43 03/02/18 08:00 Lactated Ringers Solution IV 100 mls/hr ASDIR MARY Administration Vancomycin HCl 1,250 mg/ 250 mls @ 166.667 mls/hr 03/02/18 10:00 03/02/18 10: 15 Dextrose IVPB 166.667 mls/hr BID MARY Administration Protocol Piperacillin Sod/Tazobactam 50 mls @ 100 mls/hr 03/02/18 10:00 03/02/18 10:15 Sod 4.5 gm/ Dextrose IVPB 100 mls/hr Q8H-IV MARY Administration Protocol Loratadine 10 mg 03/02/18 10:00 03/02/18 09:31 Claritin - PO 10 mg DAILY MARY Administration Multivitamins/Minerals/Vitamin C 1 tab 03/02/18 10:15 03/02/18 10:15 Tab-A-Vit - PO 1 tab DAILY MARY Administration Ondansetron HCl 4 mg 03/01/18 18:35 Zofran Injection IVPUSH Q6H PRN NAUSEA AND/OR VOMITING Ondansetron HCl 4 mg 03/01/18 21:33 Zofran Injection IVPUSH Q6H PRN NAUSEA AND/OR VOMITING Oxycodone HCl 10 mg 03/01/18 18:35 Roxicodone - PO Q4H PRN PAIN LEVEL 6-10 Oxycodone HCl 5 mg 03/01/18 18:35 Roxicodone - PO Q4H PRN PAIN LEVEL 1-5 Oxycodone HCl 10 mg 03/01/18 22:00 03/02/18 09:30 Oxycontin - PO 10 mg BID MARY Administration Pantoprazole Sodium 20 mg 03/01/18 22:00 03/02/18 09:30 Protonix - PO 20 mg BID MARY Administration Topiramate 50 mg 03/01/18 22:15 03/02/18 03:13 Topamax - PO Not Given HS [facility] ASSESSMENT/PLAN: 42 y/o F w/ PMHx L5/S1 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 Peguero, p/w drainage from incision site, returned to OR for correction, #s/p reexploration of L5-S1 fusion, removal of posterolateral bone grafts, harvest of new autologous bone grafts'; expansion of B L5 and S1 laminectomies, foramentomies, microdissection; lumbar drain placement at L2-3. -POD1 -pain control with oxycodone, tylenol, neurontin -Valium for anxiety -topiramate for Sz PPx -Albuterol nebulizer PRN, incentive spirometer -delores negro -neuro checks q4h -Vancomycin/Zosyn empiric coverage for possible infection w/ ID on board -LR @ 100 -clear liquid diet, advance as tolerated -lumbar drain w/ 10cc/hr CSF drainage, cont 72 hours -d/c wound drain tomorrow if output minimal #anemia -likely dilutional as all blood cell lines are down -Fe/MVI #FEN -LR @ 100 -monitor BMP -clear liquid #PPx -DVT: SCDs -GI: bisacodyl, PTX -Sz: topiramate #Dispo -continue to monitor in ICU Visit type - Emergency Visit Emergency Visit: No - New Patient This patient is new to me today: Yes Date on this admission: 03/02/18 - Critical Care Critical Care patient: Yes Total Critical Care Time (in minutes): 40 Critical Care Statement: The care of this patient involved high complexity decision making to prevent further life threatening deterioration of the patient 's condition and/or to evaluate & treat vital organ system(s) failure or risk of failure.
[2018-03-02] MEDS ORDERED: MORPHINE SULFATE 2 MG/ML VIAL IVPUSH ONE ×2 (15:48→19:43)
[2018-03-02] MEDS ORDERED: morphine SULFATE 4 MG/ML VIAL ONE (15:49)
[2018-03-02] MEDS: FERROUS SO4 325 MG TABLET (FP) PO SCH (15:54)
[2018-03-02] MEDS: oxyCODONE HCL 5 MG TABLET PO PRN (16:00)
[2018-03-02] MEDS ORDERED: ACETAMINOPHEN 1000 MG/100 ML VIAL (NON FORMULARY) IVPB ONE (16:18)
[2018-03-02] MEDS ORDERED: DEXTROSE 5%-WATER 100 ML IVPB ONE (19:10)
[2018-03-02] MEDS ORDERED: PIPERACILLIN/TAZOBACTAM 4.5 GM VIAL IVPB ONE (19:10)
[2018-03-02] MEDS: PIPERACILLIN/TAZOB 4.5 GM 4.5 GM in DEXTROSE 5%-WATER 100 ML IVPB SCH (20:39)
[2018-03-03] MEDS: ACETAMINOPHEN 325 MG TABLET (FP) PO PRN ×3 (00:12→19:56)
[2018-03-03] MEDS: PIPERACILLIN/TAZOB 4.5 GM 4.5 GM in DEXTROSE 5%-WATER 100 ML IVPB SCH ×3 (01:41→18:00)
[2018-03-03] MEDS: oxyCODONE HCL 5 MG TABLET PO PRN ×3 (02:05→19:55)
[2018-03-03] MEDS: LACTATED RINGERS SOLUTION 1,000 ML IV SCH ×2 (03:00→13:13)
[2018-03-03 06:14] LABS: BASO % 0.5 % (0-2.0); EOS % 2.6 % (0-4.5); HEMATOCRIT 27.5 % (32.4-45.2); LYMPH % 24.8 % (8-40); MCH 26.5 pg (25.7-33.7); MCHC 32.6 g/dl (32.0-36.0); MEAN CELL VOLUME 81.3 fl (80-96); MEAN PLT VOLUME 8.5 fl (7.5-11.1); MONO % 7.9 % (3.8-10.2); NEUT % 64.2 % (42.8-82.8); PLATELET COUNT 270 K/MM3 (134-434); RBC 3.38 M/mm3 (3.60-5.2); RDW 14.8 % (11.6-15.6); WHITE BLOOD COUNT 7.5 K/mm3 (4.0-10.0)
[2018-03-03] MEDS: DOCUSATE SODIUM 100 MG CAPSULE (FP) PO SCH ×3 (06:18→21:51)
[2018-03-03] MEDS: GABAPENTIN 300 MG CAPSULE (FP) PO SCH ×3 (06:18→21:51)
[2018-03-03] MEDS: diazePAM 5 MG TABLET PO SCH ×3 (06:18→21:51)
[2018-03-03 06:37] LABS: ANION GAP 2 MMOL/L (8-16); BLOOD UREA NITROGEN 5 mg/dL (7-18); CALCIUM 8.1 mg/dL (8.5-10.1); CHLORIDE 113 mmol/L (98-107); CO2 24 mmol/L (21-32); CREATININE 0.6 mg/dL (0.55-1.3); GLUCOSE,RANDOM 80 mg/dL (74-106); MAGNESIUM 1.9 mg/dL (1.8-2.4); PHOSPHOROUS 3.4 mg/dL (2.5-4.9); SODIUM 139 mmol/L (136-145)
[2018-03-03] MEDS ORDERED: LACTATED RINGERS SOLUTION 1000 ML INFUS.BAG IV ONE (07:30)
--- NOTE | 2018-03-03 08:15 | PN ---
Progress Note (short form) - Note Progress Note: NEUROSURGERY POD #2 R calf pain better; some L anterior thigh paresthesia PE: T 100.8, now 99.1, VSS Wound drain (deep) with minimal output CSF- 10 c output/hr; hemovac- minimal output General- unremarkable CV- RRR; Lungs- CTA B; Abd- benign; Ext- no sign of DVT CN- intact; Motor- 4+-5/5 B LE; Sensation- intact LT; DTR- intact Wound- less serosangrenous drainage from top of incision, dressing changed WBC 7.5, Hgb 9 Superficial and deep wound cultures pending, gram stain with some PMN's, no bacteria CSF gram stain negative, culture pending LE doppler- negative for DVT Bedrest/HOB flat Cont lumbar drain for at least 72 hours total (Fri to morning) D/C wound drain Findings d/w pt Cont FLAKE MILLER HELPER on demand only and valium Cont iv abx Bowel regimen Regular diet On MVI Appreciate ID input
[2018-03-03] MEDS ORDERED: PT OWN MED DRAWER 7, Y5N ONE ×3 (09:10→22:22)
--- NOTE | 2018-03-03 09:24 | PN ---
Progress Note, Physician Chief Complaint: AWAKE ALERT EVENTS AND NOTES REVIEWED DENIES CHEST PAIN/SOB/DIZZINESS - Current Medication List Current Medications: Active Medications Acetaminophen (Tylenol -) 650 mg PO Q6H PRN PRN Reason: FEVER Last Admin: 03/03/18 00:12 Dose: 650 mg Bisacodyl (Dulcolax Suppository -) 10 mg RC DAILY PRN PRN Reason: CONSTIPATION Diazepam (Valium -) 5 mg PO TID [facility] Last Admin: 03/03/18 06:18 Dose: 5 mg Docusate Sodium (Colace -) 100 mg PO TID [facility] Last Admin: 03/03/18 06:18 Dose: 100 mg Fentanyl (Sublimaze Injection -) 50 mcg IVPUSH [id number] PRN PRN Reason: PAIN-PACU ORDER X 4 DOSES ONLY Last Admin: 03/01/18 22:25 Dose: 50 mcg Ferrous Sulfate (Feosol -) 325 mg PO DAILY [facility] Last Admin: 03/02/18 15:54 Dose: 325 mg Gabapentin (Neurontin -) 300 mg PO TID [facility] Last Admin: 03/03/18 06:18 Dose: 300 mg Lactated Ringer's (Lactated Ringers Solution) 1,000 mls @ 100 mls/hr IV ASDIR [facility] Last Admin: 03/03/18 03:00 Dose: 100 mls/hr Vancomycin HCl 1,250 mg/ (Dextrose) 250 mls @ 166.667 mls/hr IVPB BID [facility]; Protocol Last Admin: 03/02/18 22:14 Dose: 166.667 mls/hr Piperacillin Sod/Tazobactam (Sod 4.5 gm/ Dextrose) 100 mls @ 200 mls/hr IVPB Q8H-IV [facility]; Protocol Last Admin: 03/03/18 01:41 Dose: 200 mls/hr Loratadine (Claritin -) 10 mg PO DAILY [facility] Last Admin: 03/02/18 09:31 Dose: 10 mg Multivitamins/Minerals/Vitamin C (Tab-A-Vit -) 1 tab PO DAILY [facility] Last Admin: 03/02/18 10:15 Dose: 1 tab Ondansetron HCl (Zofran Injection) 4 mg IVPUSH Q6H PRN PRN Reason: NAUSEA AND/OR VOMITING Ondansetron HCl (Zofran Injection) 4 mg IVPUSH Q6H PRN PRN Reason: NAUSEA AND/OR VOMITING Oxycodone HCl (Roxicodone -) 10 mg PO Q4H PRN PRN Reason: PAIN LEVEL 6-10 Oxycodone HCl (Roxicodone -) 5 mg PO Q4H PRN PRN Reason: PAIN LEVEL 1-5 Last Admin: 03/03/18 02:05 Dose: 5 mg Oxycodone HCl (Oxycontin -) 10 mg PO BID [facility] Last Admin: 03/02/18 22:15 Dose: 10 mg Pantoprazole Sodium (Protonix -) 20 mg PO BID [facility] Last Admin: 03/02/18 22:13 Dose: 20 mg Topiramate (Topamax -) 50 mg PO [facility] Last Admin: 03/02/18 22:14 Dose: 50 mg - Objective Vital Signs: Vital Signs Temperature 99.1 F 03/03/18 06:28 Pulse Rate 69 03/03/18 06:00 Respiratory Rate 12 03/03/18 06:00 Blood Pressure 85/60 L 03/03/18 06:00 O2 Sat by Pulse Oximetry (%) 100 03/02/18 22:55 Constitutional: Yes: Mild Distress Eyes: Yes: WNL HENT: Yes: WNL Neck: Yes: WNL Cardiovascular: Yes: WNL Respiratory: Yes: WNL Gastrointestinal: Yes: WNL Genitourinary: Yes: WNL Musculoskeletal: Yes: Back Pain (CLEAN WOUND), Muscle Pain, Other (LEFT LEG) Extremities: Yes: WNL Edema: No Peripheral Pulses WNL: Yes Integumentary: Yes: Other Wound/Incision: Yes: Draining Neurological: Yes: Other ...Motor Strength: LLE Psychiatric: Yes: WNL Labs: CBC, BMP 03/03/18 05:30 03/03/18 05:30 INR, PTT INR 0.99 (0.83-1.09) 03/01/18 16:55 Problem List - Problems (1) History of laminectomy Code(s): Z98.890 - OTHER SPECIFIED POSTPROCEDURAL STATES (2) Post op infection Code(s): T81.40XA - INFECTION FOLLOWING A PROCEDURE, UNSPECIFIED, INIT Assessment/Plan POD #1 POST-OP INFECTION L5-S1 DRAINING SANGUINOUS FLUID IV ABX PER ID ON VANCO PAIN CONTROL DVT PROPHYLAXIS PT EVAL
[2018-03-03] MEDS: FERROUS SO4 325 MG TABLET (FP) PO SCH (10:10)
[2018-03-03] MEDS: MULTIVITAMINS (DAILY MVI) TABLET (FP) PO SCH (10:10)
[2018-03-03] MEDS: PANTOPRAZOLE 20 MG TABLET (FP) PO SCH ×2 (10:10→21:51)
[2018-03-03] MEDS: LORATADINE 10 MG TABLET PO SCH (10:10)
[2018-03-03] MEDS: oxyCODONE HCL 10 MG SUSTAINED ACTING TABLET PO SCH ×2 (10:12→21:54)
[2018-03-03] MEDS: VANCOMYCIN 1,250 MG in DEXTROSE 5%-WATER - 250 ML IVPB SCH ×2 (11:00→21:51)
--- NOTE | 2018-03-03 12:14 | PN ---
Teaching Attending Note Name of Resident: Hardeep Heck ATTENDING PHYSICIAN STATEMENT I saw and evaluated the patient. I reviewed the resident's note and discussed the case with the resident. I agree with the resident's findings and plan as documented. SUBJECTIVE: Patient seen and examined in the ICU. Awake and alert. Still with pain upon small movements. Seen by Neurosurgery this AM. No CP or SOB. Congested cough is better. Intake & Output 02/28/18 03/01/18 03/02/18 03/03/18 23:59 23:59 23:59 23:59 Intake Total 300 5345 1900 Output Total 925 4320 3100 Balance -625 1025 -1200 Weight 172 lb 187 lb 6.287 oz 176 lb 2.389 oz Last Vital Signs Temp Pulse Resp BP Pulse Ox 99.2 F 71 17 100/63 100 03/03/18 10:00 03/03/18 10:00 03/03/18 10:00 03/03/18 10:00 03/03/18 09:00 Active Medications Acetaminophen (Tylenol -) 650 mg PO Q6H PRN PRN Reason: FEVER Last Admin: 03/03/18 11:40 Dose: 650 mg Bisacodyl (Dulcolax Suppository -) 10 mg RC DAILY PRN PRN Reason: CONSTIPATION Diazepam (Valium -) 5 mg PO TID [facility] Last Admin: 03/03/18 06:18 Dose: 5 mg Docusate Sodium (Colace -) 100 mg PO TID [facility] Last Admin: 03/03/18 06:18 Dose: 100 mg Fentanyl (Sublimaze Injection -) 50 mcg IVPUSH [id number] PRN PRN Reason: PAIN-PACU ORDER X 4 DOSES ONLY Last Admin: 03/01/18 22:25 Dose: 50 mcg Ferrous Sulfate (Feosol -) 325 mg PO DAILY [facility] Last Admin: 03/03/18 10:10 Dose: 325 mg Gabapentin (Neurontin -) 300 mg PO TID [facility] Last Admin: 03/03/18 06:18 Dose: 300 mg Lactated Ringer's (Lactated Ringers Solution) 1,000 mls @ 100 mls/hr IV ASDIR [facility] Last Admin: 03/03/18 03:00 Dose: 100 mls/hr Vancomycin HCl 1,250 mg/ (Dextrose) 250 mls @ 166.667 mls/hr IVPB BID [facility]; Protocol Last Admin: 03/02/18 22:14 Dose: 166.667 mls/hr Piperacillin Sod/Tazobactam (Sod 4.5 gm/ Dextrose) 100 mls @ 200 mls/hr IVPB Q8H-IV [facility]; Protocol Last Admin: 03/03/18 10:11 Dose: 200 mls/hr Loratadine (Claritin -) 10 mg PO DAILY [facility] Last Admin: 03/03/18 10:10 Dose: 10 mg Morphine Sulfate (Morphine Sulfate) 4 mg IVPUSH ONCE ONE Stop: 03/03/18 12:16 Multivitamins/Minerals/Vitamin C (Tab-A-Vit -) 1 tab PO DAILY [facility] Last Admin: 03/03/18 10:10 Dose: 1 tab Ondansetron HCl (Zofran Injection) 4 mg IVPUSH Q6H PRN PRN Reason: NAUSEA AND/OR VOMITING Ondansetron HCl (Zofran Injection) 4 mg IVPUSH Q6H PRN PRN Reason: NAUSEA AND/OR VOMITING Oxycodone HCl (Roxicodone -) 10 mg PO Q4H PRN PRN Reason: PAIN LEVEL 6-10 Oxycodone HCl (Roxicodone -) 5 mg PO Q4H PRN PRN Reason: PAIN LEVEL 1-5 Last Admin: 03/03/18 11:41 Dose: 5 mg Oxycodone HCl (Oxycontin -) 10 mg PO BID [facility] Last Admin: 03/03/18 10:12 Dose: 10 mg Pantoprazole Sodium (Protonix -) 20 mg PO BID [facility] Last Admin: 03/03/18 10:10 Dose: 20 mg Topiramate (Topamax -) 50 mg PO HS [facility] Last Admin: 03/02/18 22:14 Dose: 50 mg GENERAL: Awake and alert HEAD: Posterior drain intact EYES: Sclera anicteric, conjunctiva clear. EARS, NOSE, THROAT: Moist mucous membranes. NECK: supple LUNGS: Breath sounds equal, clear to auscultation bilaterally. HEART: Regular rate and rhythm, normal S1 and S2 ABDOMEN: Soft, nontender, not distended, globally decreased bowel sounds MUSCULOSKELETAL: No bony deformities UPPER EXTREMITIES: 2+ pulses, warm, well-perfused. No peripheral edema. LOWER EXTREMITIES: 2+ pulses, warm, well-perfused. No peripheral edema. NEUROLOGICAL: Non-focal SKIN: Warm, dry Laboratory Results - last 24 hr 03/03/18 03/03/18 05:30 05:30 WBC 7.5 RBC 3.38 L Hgb 9.0 L Hct 27.5 L MCV 81.3 MCH 26.5 MCHC 32.6 RDW 14.8 Plt Count 270 MPV 8.5 Absolute Neuts (auto) 4.9 Neutrophils % 64.2 D Lymphocytes % 24.8 D Monocytes % 7.9 D Eosinophils % 2.6 Basophils % 0.5 Nucleated RBC % 0 Sodium 139 Potassium 4.0 Chloride 113 H Carbon Dioxide 24 Anion Gap 2 L BUN 5 L Creatinine 0.6 Creat Clearance w eGFR > 60 Random Glucose 80 Calcium 8.1 L Phosphorus 3.4 Magnesium 1.9 Problem List - Problems (1) History of laminectomy Code(s): Z98.890 - OTHER SPECIFIED POSTPROCEDURAL STATES (2) Post op infection Code(s): T81.40XA - INFECTION FOLLOWING A PROCEDURE, UNSPECIFIED, INIT ASSESSMENT/PLAN: POD #2 S/P Re-exploration of L5-S1 fusion Removal of posterolateral bone grafts [place] of new autologous bone grafts / expansion of L5 and S1 laminectomies / foramentomies / microdissection Lumbar drain placement at L2-3. Possible surgical wound infection Pain control VTE prophylaxis O2 as needed Incentive Spirometry Albuterol nebulizer PRN Neuro checks q4h ABX per ID Dr Dasilva
[2018-03-03] MEDS ORDERED: morphine SULFATE 4 MG/ML VIAL IVPUSH ONE (12:15)
[2018-03-03 16:51] VITALS: BMI 27.6
--- NOTE | 2018-03-03 17:30 | PN ---
Physical Exam: SUBJECTIVE: Patient seen and examined at bedside. Drowsy in bad cloth checker. Awake and alert to voice. Pain at surgical site, no other complaints. Urinating through hernadez, +flatus, no BM as yet. OBJECTIVE: Vital Signs Period Temp Pulse Resp BP Sys/Streeter Pulse Ox Last 24 Hr 99.1 F-100.8 F 69-90 12-20 85-116/52-69 100-100 GENERAL: A&Ox3, NAD HEAD: NC/AT EYES: PERRLA, EOMI EARS, NOSE, THROAT: Moist mucous membranes. NECK: supple, full ROM, no LAD, no CAD LUNGS: CTA b/l HEART: RRR no m/r/g ABDOMEN: hypoactive bowel sounds, soft, NTND EXTREMITIES: 2+ pulses, warm, well-perfused. No peripheral edema. NEUROLOGICAL: CN II-XII intact b/l, 4+ strength x 4 extremities, sensation intact throughout PSYCHIATRIC: drowsy otherwise appropriate mood, affect SKIN: Warm, dry, no rashes, lesions, murmurs : hernadez in place draining 900cc over 24 hours DRAINS: L2-L3 lumbar drain, 10cc/hr; wound drain removed Laboratory Results - last 24 hr 03/03/18 03/03/18 05:30 05:30 WBC 7.5 RBC 3.38 L Hgb 9.0 L Hct 27.5 L MCV 81.3 MCH 26.5 MCHC 32.6 RDW 14.8 Plt Count 270 MPV 8.5 Absolute Neuts (auto) 4.9 Neutrophils % 64.2 D Lymphocytes % 24.8 D Monocytes % 7.9 D Eosinophils % 2.6 Basophils % 0.5 Nucleated RBC % 0 Sodium 139 Potassium 4.0 Chloride 113 H Carbon Dioxide 24 Anion Gap 2 L BUN 5 L Creatinine 0.6 Creat Clearance w eGFR > 60 Random Glucose 80 Calcium 8.1 L Phosphorus 3.4 Magnesium 1.9 Active Medications Generic Name Dose Route Start Last Admin Trade Name Freq PRN Reason Stop Dose Admin Acetaminophen 650 mg 03/01/18 21:33 03/03/18 11:40 Tylenol - PO 650 mg Q6H PRN Administration FEVER Bisacodyl 10 mg 03/01/18 21:33 Dulcolax Suppository - RC DAILY PRN CONSTIPATION Diazepam 5 mg 03/01/18 22:15 03/03/18 13:05 Valium - PO 5 mg TID [facility] Administration Docusate Sodium 100 mg 03/01/18 22:00 03/03/18 13:05 Colace - PO 100 mg TID [facility] Administration Fentanyl 50 mcg 03/01/18 18:35 03/01/18 22:25 Sublimaze Injection - IVPUSH 50 mcg [id number] PRN Administration PAIN-PACU ORDER X 4 DOSES ONLY Ferrous Sulfate 325 mg 03/02/18 14:00 03/03/18 10:10 Feosol - PO 325 mg DAILY [facility] Administration Gabapentin 300 mg 03/01/18 22:00 03/03/18 13:05 Neurontin - PO 300 mg TID [facility] Administration Lactated Ringer's 1,000 mls @ 100 mls/hr 03/02/18 07:43 03/03/18 13:13 Lactated Ringers Solution IV Not Given ASDIR [facility] Vancomycin HCl 1,250 mg/ 250 mls @ 166.667 mls/hr 03/02/18 10:00 03/03/18 11: 00 Dextrose IVPB 166.667 mls/hr BID [facility] Administration Protocol Piperacillin Sod/Tazobactam 100 mls @ 200 mls/hr 03/02/18 17:41 03/03/18 10: 11 Sod 4.5 gm/ Dextrose IVPB 200 mls/hr Q8H-IV [facility] Administration Protocol Loratadine 10 mg 03/02/18 10:00 03/03/18 10:10 Claritin - PO 10 mg DAILY [facility] Administration Multivitamins/Minerals/Vitamin C 1 tab 03/02/18 10:15 03/03/18 10:10 Tab-A-Vit - PO 1 tab DAILY [facility] Administration Ondansetron HCl 4 mg 03/01/18 18:35 Zofran Injection IVPUSH Q6H PRN NAUSEA AND/OR VOMITING Ondansetron HCl 4 mg 03/01/18 21:33 Zofran Injection IVPUSH Q6H PRN NAUSEA AND/OR VOMITING Oxycodone HCl 10 mg 03/01/18 18:35 Roxicodone - PO Q4H PRN PAIN LEVEL 6-10 Oxycodone HCl 5 mg 03/01/18 18:35 03/03/18 11:41 Roxicodone - PO 5 mg Q4H PRN Administration PAIN LEVEL 1-5 Oxycodone HCl 10 mg 03/01/18 22:00 03/03/18 10:12 Oxycontin - PO 10 mg BID [facility] Administration Pantoprazole Sodium 20 mg 03/01/18 22:00 03/03/18 10:10 Protonix - PO 20 mg BID [facility] Administration Topiramate 50 mg 03/01/18 22:15 03/02/18 22:14 Topamax - PO 50 mg HS [facility] Administration ASSESSMENT/PLAN: 42 y/o F w/ PMHx L5/S1 decompression 2wks [employer] by Dr. Peguero, p/w drainage from incision site, returned to OR for correction, #s/p reexploration of L5-S1 fusion, removal of posterolateral bone grafts, [place] of new autologous bone grafts'; expansion of B L5 and S1 laminectomies, foramentomies, microdissection; lumbar drain placement at L2-3. -POD2 -pain control with oxycodone, tylenol, neurontin -ID morphine as needed for breakthrough pain -Valium for anxiety -topiramate for Sz PPx -Albuterol nebulizer PRN, incentive spirometer -delores negro -neuro checks q4h -Vancomycin/Zosyn empiric coverage for possible infection w/ ID on board -LR @ 100 -advanced to regular diet -lumbar drain w/ 10cc/hr CSF drainage, cont 24-48 hours #anemia -improving -Fe/MVI #FEN -LR @ 100 -monitor BMP -regular #PPx -DVT: SCDs -GI: bisacodyl, PTX, colace -Sz: topiramate #Dispo -continue to monitor in ICU Visit type - Emergency Visit Emergency Visit: No - New Patient This patient is new to me today: No - Critical Care Critical Care patient: Yes Total Critical Care Time (in minutes): 40 Critical Care Statement: The care of this patient involved high complexity decision making to prevent further life threatening deterioration of the patient 's condition and/or to evaluate & treat vital organ system(s) failure or risk of failure.
--- NOTE | 2018-03-03 19:07 | PN ---
Progress Note (short form) - Note Progress Note: frustrated laying flat no other complaints Vital Signs Period Temp Pulse Resp BP Sys/Streeter Pulse Ox Last 24 Hr 99.1 F-100.8 F 69-90 12-20 85-116/52-69 100-100 cor-rrr lungs clear abd soft ext no edema CBC, BMP 03/03/18 05:30 03/03/18 05:30 Microbiology 03/01/18 16:55 Blood - Peripheral Venous Blood Culture - Preliminary NO GROWTH OBTAINED AFTER 48 HOURS, INCUBATION TO CONTINUE FOR 3 DAYS. 03/01/18 16:55 Blood - Peripheral Venous Blood Culture - Preliminary NO GROWTH OBTAINED AFTER 48 HOURS, INCUBATION TO CONTINUE FOR 3 DAYS. 03/01/18 21:30 Cerebral Spinal Fluid - Lumbar Puncture Gram Stain - Final 03/01/18 21:30 Cerebral Spinal Fluid - Lumbar Puncture CSF Culture - Preliminary 03/01/18 22:00 Drainage (Swab) Gram Stain - Final 03/01/18 22:00 Drainage (Swab) Wound Culture - Preliminary NO GROWTH OBTAINED AFTER 24 HOURS INCUBATION, REINCUBATED. 03/01/18 22:00 Drainage (Swab) Gram Stain - Final 03/01/18 22:00 Drainage (Swab) Wound Culture - Preliminary NO GROWTH OBTAINED AFTER 24 HOURS INCUBATION, REINCUBATED. 03/01/18 21:30 Cerebral Spinal Fluid - Lumbar Puncture Gram Stain - Final a/p r/o post op wound infection-one drain out continue vanco/zosyn f/u cultures in am so far no growth vanco trough in am will d/w Dr Peguero in am Problem List - Problems (1) Post op infection Code(s): T81.40XA - INFECTION FOLLOWING A PROCEDURE, UNSPECIFIED, INIT (2) History of laminectomy Code(s): Z98.890 - OTHER SPECIFIED POSTPROCEDURAL STATES
[2018-03-03] MEDS ORDERED: INSULIN (NOVOLOG MIX 70/30) 100 UNITS/ML MDV SQ ONE (21:46)
[2018-03-03] MEDS: TOPIRAMATE 25 MG TABLET (FP) PO SCH (22:57)
[2018-03-04] MEDS: PIPERACILLIN/TAZOB 4.5 GM 4.5 GM in DEXTROSE 5%-WATER 100 ML IVPB SCH ×3 (01:32→18:33)
[2018-03-04] MEDS: LACTATED RINGERS SOLUTION 1,000 ML IV SCH ×2 (01:32→12:45)
[2018-03-04] MEDS: diazePAM 5 MG TABLET PO SCH ×3 (05:48→21:27)
[2018-03-04] MEDS: GABAPENTIN 300 MG CAPSULE (FP) PO SCH ×3 (05:48→21:27)
[2018-03-04] MEDS: DOCUSATE SODIUM 100 MG CAPSULE (FP) PO SCH ×3 (05:48→21:27)
[2018-03-04 06:37] LABS: BASO % 0.5 % (0-2.0); EOS % 5.3 % (0-4.5); HEMOGLOBIN 8.9 GM/dL (10.7-15.3); LYMPH % 38.5 % (8-40); MCH 26.6 pg (25.7-33.7); MCHC 32.8 g/dl (32.0-36.0); MEAN CELL VOLUME 80.9 fl (80-96); MEAN PLT VOLUME 8.5 fl (7.5-11.1); MONO % 6.8 % (3.8-10.2); NEUT % 48.9 % (42.8-82.8); PLATELET COUNT 256 K/MM3 (134-434); RBC 3.34 M/mm3 (3.60-5.2); RDW 14.7 % (11.6-15.6)
[2018-03-04 06:56] LABS: ANION GAP 6 MMOL/L (8-16); BLOOD UREA NITROGEN 10 mg/dL (7-18); CALCIUM 8.4 mg/dL (8.5-10.1); CHLORIDE 110 mmol/L (98-107); CO2 24 mmol/L (21-32); CREATININE 0.5 mg/dL (0.55-1.3); GLUCOSE,RANDOM 85 mg/dL (74-106); PHOSPHOROUS 4.5 mg/dL (2.5-4.9); POTASSIUM 4.1 mmol/L (3.5-5.1); SODIUM 140 mmol/L (136-145)
--- NOTE | 2018-03-04 07:03 | PN ---
Progress Note (short form) - Note Progress Note: NEUROSURGERY POD #3 LBP PE: T 99.5, now 99.1, VSS Wound drain (deep) with minimal output CSF- 10 c output/hr General- unremarkable CV- RRR; Lungs- CTA B; Abd- benign; Ext- no sign of DVT CN- intact; Motor- 4+-5/5 B LE; Sensation- intact LT; DTR- intact Wound- Dressing C/D/I WBC 6, Hgb 8.9 Superficial and deep wound cultures negative x 24 hrs, final pending, gram stain with some PMN's, no bacteria CSF gram stain and culture negative LE doppler- negative for DVT Bedrest/HOB flat/side to side OK Cont lumbar drain for at least 72 hours total (Fri to morning) On oxycontin and prn oxycodone, and valium On vanco and Zosyn currently Bowel regimen Regular diet On MVI Appreciate ID f/u If no drainage today will consider d/c lumbar drain tomorrow AM
[2018-03-04] MEDS ORDERED: DEXTROSE 5%-WATER 100 ML IVPB ONE (08:15)
[2018-03-04] MEDS ORDERED: PIPERACILLIN/TAZOBACTAM 4.5 GM VIAL IVPB ONE (08:15)
[2018-03-04] MEDS ORDERED: morphine SULFATE 4 MG/ML VIAL IVPUSH ONE (08:25)
--- NOTE | 2018-03-04 09:31 | PN ---
Progress Note, Physician Chief Complaint: AWAKE ALERT FAMILY BEDSIDE C/O WEAKNESS/FATIGUE LEFT LEG PAIN - Current Medication List Current Medications: Active Medications Acetaminophen (Tylenol -) 650 mg PO Q6H PRN PRN Reason: FEVER Last Admin: 03/03/18 19:56 Dose: 650 mg Bisacodyl (Dulcolax Suppository -) 10 mg RC DAILY PRN PRN Reason: CONSTIPATION Diazepam (Valium -) 5 mg PO TID [facility] Last Admin: 03/04/18 05:48 Dose: 5 mg Docusate Sodium (Colace -) 100 mg PO TID [facility] Last Admin: 03/04/18 05:48 Dose: 100 mg Fentanyl (Sublimaze Injection -) 50 mcg IVPUSH [id number] PRN PRN Reason: PAIN-PACU ORDER X 4 DOSES ONLY Last Admin: 03/01/18 22:25 Dose: 50 mcg Ferrous Sulfate (Feosol -) 325 mg PO DAILY [facility] Last Admin: 03/03/18 10:10 Dose: 325 mg Gabapentin (Neurontin -) 300 mg PO TID [facility] Last Admin: 03/04/18 05:48 Dose: 300 mg Lactated Ringer's (Lactated Ringers Solution) 1,000 mls @ 100 mls/hr IV ASDIR [facility] Last Admin: 03/04/18 01:32 Dose: 100 mls/hr Vancomycin HCl 1,250 mg/ (Dextrose) 250 mls @ 166.667 mls/hr IVPB BID [facility]; Protocol Last Admin: 03/03/18 21:51 Dose: 166.667 mls/hr Piperacillin Sod/Tazobactam (Sod 4.5 gm/ Dextrose) 100 mls @ 200 mls/hr IVPB Q8H-IV [facility]; Protocol Last Admin: 03/04/18 01:32 Dose: 200 mls/hr Loratadine (Claritin -) 10 mg PO DAILY [facility] Last Admin: 03/03/18 10:10 Dose: 10 mg Multivitamins/Minerals/Vitamin C (Tab-A-Vit -) 1 tab PO DAILY [facility] Last Admin: 03/03/18 10:10 Dose: 1 tab Ondansetron HCl (Zofran Injection) 4 mg IVPUSH Q6H PRN PRN Reason: NAUSEA AND/OR VOMITING Ondansetron HCl (Zofran Injection) 4 mg IVPUSH Q6H PRN PRN Reason: NAUSEA AND/OR VOMITING Oxycodone HCl (Roxicodone -) 10 mg PO Q4H PRN PRN Reason: PAIN LEVEL 6-10 Oxycodone HCl (Roxicodone -) 5 mg PO Q4H PRN PRN Reason: PAIN LEVEL 1-5 Last Admin: 03/03/18 19:55 Dose: 5 mg Oxycodone HCl (Oxycontin -) 10 mg PO BID [facility] Last Admin: 03/03/18 21:54 Dose: 10 mg Pantoprazole Sodium (Protonix -) 20 mg PO BID [facility] Last Admin: 03/03/18 21:51 Dose: 20 mg Topiramate (Topamax -) 50 mg PO [facility] Last Admin: 03/03/18 22:57 Dose: 50 mg - Objective Vital Signs: Vital Signs Temperature 98.2 F 03/04/18 06:00 Pulse Rate 69 03/04/18 08:00 Respiratory Rate 16 03/04/18 08:00 Blood Pressure 99/57 L 03/04/18 08:00 O2 Sat by Pulse Oximetry (%) 100 03/03/18 22:00 Constitutional: Yes: Mild Distress Eyes: Yes: WNL HENT: Yes: WNL Neck: Yes: WNL Cardiovascular: Yes: WNL Respiratory: Yes: WNL Gastrointestinal: Yes: WNL Genitourinary: Yes: WNL Musculoskeletal: Yes: Back Pain, Muscle Weakness Extremities: Yes: WNL Edema: No Peripheral Pulses WNL: Yes Integumentary: Yes: WNL Wound/Incision: Yes: Draining, Unapproximated Neurological: Yes: Other ...Motor Strength: LLE Psychiatric: Yes: WNL Labs: CBC, BMP 03/04/18 05:30 03/04/18 05:30 INR, PTT INR 0.99 (0.83-1.09) 03/01/18 16:55 Problem List - Problems (1) History of laminectomy Code(s): Z98.890 - OTHER SPECIFIED POSTPROCEDURAL STATES (2) Post op infection Code(s): T81.40XA - INFECTION FOLLOWING A PROCEDURE, UNSPECIFIED, INIT Assessment/Plan POD #2 POST-OP INFECTION L5-S1 DRAINING SANGUINOUS FLUID IV ABX PER ID ON VANCO PAIN CONTROL DVT PROPHYLAXIS PT EVAL IRON SUCROSE IV ANEMIA LIKELY CHRONIC WILL MONITOR
[2018-03-04] MEDS ORDERED: FLUCONAZOLE 50 MG TABLET PO ONE (10:00)
--- NOTE | 2018-03-04 10:02 | PN ---
Progress Note (short form) - Note Progress Note: frustrated laying flat no other complaints using the incentive spirometer still with back pain Vital Signs Period Temp Pulse Resp BP Sys/Streeter Pulse Ox Last 24 Hr 98.2 F-99.5 F 61-80 12-23 90-106/51-70 100-100 cor-rrr lungs clear abd soft,nt ext no edema csf drain still in place CBC, BMP 03/04/18 05:30 03/04/18 05:30 Microbiology 03/01/18 16:55 Blood - Peripheral Venous Blood Culture - Preliminary NO GROWTH OBTAINED AFTER 48 HOURS, INCUBATION TO CONTINUE FOR 3 DAYS. 03/01/18 16:55 Blood - Peripheral Venous Blood Culture - Preliminary NO GROWTH OBTAINED AFTER 48 HOURS, INCUBATION TO CONTINUE FOR 3 DAYS. 03/01/18 21:30 Cerebral Spinal Fluid - Lumbar Puncture Gram Stain - Final 03/01/18 21:30 Cerebral Spinal Fluid - Lumbar Puncture CSF Culture - Preliminary 03/01/18 22:00 Drainage (Swab) Gram Stain - Final 03/01/18 22:00 Drainage (Swab) Wound Culture - Preliminary NO GROWTH OBTAINED AFTER 24 HOURS INCUBATION, REINCUBATED. 03/01/18 22:00 Drainage (Swab) Gram Stain - Final 03/01/18 22:00 Drainage (Swab) Wound Culture - Preliminary NO GROWTH OBTAINED AFTER 24 HOURS INCUBATION, REINCUBATED. 03/01/18 21:30 Cerebral Spinal Fluid - Lumbar Puncture Gram Stain - Final vanco trough pending a/p r/o post op wound infection-one drain out continue vanco/zosyn f/u cultures in am so far no growth vanco trough pending encourage incentive spirometry will d/w Dr Peguero Problem List - Problems (1) Post op infection Code(s): T81.40XA - INFECTION FOLLOWING A PROCEDURE, UNSPECIFIED, INIT (2) History of laminectomy Code(s): Z98.890 - OTHER SPECIFIED POSTPROCEDURAL STATES
[2018-03-04] MEDS: VANCOMYCIN 1,250 MG in DEXTROSE 5%-WATER - 250 ML IVPB SCH ×2 (10:46→22:00)
[2018-03-04] MEDS: oxyCODONE HCL 10 MG SUSTAINED ACTING TABLET PO SCH ×2 (10:47→21:27)
[2018-03-04] MEDS: PANTOPRAZOLE 20 MG TABLET (FP) PO SCH ×2 (10:48→21:30)
[2018-03-04] MEDS: FERROUS SO4 325 MG TABLET (FP) PO SCH (10:48)
[2018-03-04] MEDS: LORATADINE 10 MG TABLET PO SCH (10:48)
[2018-03-04] MEDS: MULTIVITAMINS (DAILY MVI) TABLET (FP) PO SCH (10:48)
[2018-03-04] MEDS: ACETAMINOPHEN 325 MG TABLET (FP) PO PRN (11:14)
[2018-03-04] MEDS: oxyCODONE HCL 5 MG TABLET PO PRN ×2 (11:14→16:00)
[2018-03-04] MEDS ORDERED: PT OWN MED DRAWER 7, Y5N ONE ×3 (11:50→21:29)
--- NOTE | 2018-03-04 12:44 | PN ---
Teaching Attending Note Name of Resident: Hardeep Heck ATTENDING PHYSICIAN STATEMENT I saw and evaluated the patient. I reviewed the resident's note and discussed the case with the resident. I agree with the resident's findings and plan as documented. SUBJECTIVE: Pt seen and examined in the ICU. Pain relatively controlled. No fevers or chills. One drain out, lumbar drain remains. No shortness of breath or chest pain. +flatus but no BM. c/o left thigh pain. OBJECTIVE: Vital Signs Period Temp Pulse Resp BP Sys/Streeter Pulse Ox Last 24 Hr 98.2 F-99.5 F 61-80 12-23 90-114/51-75 100-100 Intake & Output 03/01/18 03/02/18 03/03/18 03/04/18 23:59 23:59 23:59 23:59 Intake Total 300 5345 4190 2390 Output Total 925 4320 5820 1020 Balance -625 1025 -1630 1370 Weight 78.018 kg 85 kg 79.832 kg 81.7 kg Gen: NAD at rest Heart: RRR Lung: decreased breath sounds at the bases Abd: soft, nontender Ext: no edema CBC, BMP 03/04/18 05:30 03/04/18 05:30 Active Medications Acetaminophen (Tylenol -) 650 mg PO Q6H PRN PRN Reason: FEVER Last Admin: 03/04/18 11:14 Dose: 650 mg Bisacodyl (Dulcolax Suppository -) 10 mg RC DAILY PRN PRN Reason: CONSTIPATION Diazepam (Valium -) 5 mg PO TID [facility] Last Admin: 03/04/18 05:48 Dose: 5 mg Docusate Sodium (Colace -) 100 mg PO TID [facility] Last Admin: 03/04/18 05:48 Dose: 100 mg Ferrous Sulfate (Feosol -) 325 mg PO DAILY [facility] Last Admin: 03/04/18 10:48 Dose: 325 mg Gabapentin (Neurontin -) 300 mg PO TID [facility] Last Admin: 03/04/18 05:48 Dose: 300 mg Lactated Ringer's (Lactated Ringers Solution) 1,000 mls @ 100 mls/hr IV ASDIR [facility] Last Admin: 03/04/18 01:32 Dose: 100 mls/hr Vancomycin HCl 1,250 mg/ (Dextrose) 250 mls @ 166.667 mls/hr IVPB BID [facility]; Protocol Last Admin: 03/04/18 10:46 Dose: 166.667 mls/hr Piperacillin Sod/Tazobactam (Sod 4.5 gm/ Dextrose) 100 mls @ 200 mls/hr IVPB Q8H-IV [facility]; Protocol Last Admin: 03/04/18 10:00 Dose: 200 mls/hr Loratadine (Claritin -) 10 mg PO DAILY [facility] Last Admin: 03/04/18 10:48 Dose: 10 mg Multivitamins/Minerals/Vitamin C (Tab-A-Vit -) 1 tab PO DAILY [facility] Last Admin: 03/04/18 10:48 Dose: 1 tab Oxycodone HCl (Roxicodone -) 10 mg PO Q4H PRN PRN Reason: PAIN LEVEL 6-10 Oxycodone HCl (Roxicodone -) 5 mg PO Q4H PRN PRN Reason: PAIN LEVEL 1-5 Last Admin: 03/04/18 11:14 Dose: 5 mg Oxycodone HCl (Oxycontin -) 10 mg PO BID [facility] Last Admin: 03/04/18 10:47 Dose: 10 mg Pantoprazole Sodium (Protonix -) 20 mg PO BID [facility] Last Admin: 03/04/18 10:48 Dose: 20 mg Topiramate (Topamax -) 50 mg PO HS [facility] Last Admin: 03/03/18 22:57 Dose: 50 mg ASSESSMENT AND PLAN: Recent L5-S1 decompression CSF Leak s/p Reexploration of L5-S1 fusion/removal of posterolateral bone grafts, harvest of new autologous bone grafts s/p Expansion of B L5 and S1 laminectomies, foramentomies, microdissection; lumbar drain placement at L2-3 - pain control - incentive spirometry - continue antibiotics - f/u cultures - lumbar drain per neurosurgery - bowel regimen - DVT prophylaxis
--- NOTE | 2018-03-04 12:58 | PN ---
Physical Exam: SUBJECTIVE: Patient seen and examined at bedside. Pain at surgical site, no other complaints. Urinating through hernadez, +flatus, no BM as yet. OBJECTIVE: Vital Signs Period Temp Pulse Resp BP Sys/Streeter Pulse Ox Last 24 Hr 98.2 F-99.5 F 61-80 12-23 90-114/51-75 100-100 GENERAL: A&Ox3, NAD HEAD: NC/AT EYES: PERRLA, EOMI EARS, NOSE, THROAT: Moist mucous membranes. NECK: supple, full ROM, no LAD, no CAD LUNGS: CTA b/l HEART: RRR no m/r/g ABDOMEN: +bs, soft, NTND EXTREMITIES: 2+ pulses, warm, well-perfused. No peripheral edema. NEUROLOGICAL: CN II-XII intact b/l, 4+ strength x 4 extremities, sensation intact throughout PSYCHIATRIC: drowsy otherwise appropriate mood, affect SKIN: Warm, dry, no rashes, lesions, murmurs : hernadez in place DRAINS: L2-L3 lumbar drain, 10cc/hr Laboratory Results - last 24 hr 03/04/18 03/04/18 03/04/18 05:30 05:30 09:15 WBC 6.0 RBC 3.34 L Hgb 8.9 L Hct 27.0 L MCV 80.9 MCH 26.6 MCHC 32.8 RDW 14.7 Plt Count 256 MPV 8.5 Absolute Neuts (auto) 2.9 Neutrophils % 48.9 D Lymphocytes % 38.5 D Monocytes % 6.8 Eosinophils % 5.3 H D Basophils % 0.5 Nucleated RBC % 0 Sodium 140 Potassium 4.1 Chloride 110 H Carbon Dioxide 24 Anion Gap 6 L BUN 10 Creatinine 0.5 L Creat Clearance w eGFR > 60 Random Glucose 85 Calcium 8.4 L Phosphorus 4.5 Magnesium 2.0 Vancomycin Pre-Dose 9.3 L Active Medications Generic Name Dose Route Start Last Admin Trade Name Freq PRN Reason Stop Dose Admin Acetaminophen 650 mg 03/01/18 21:33 03/04/18 11:14 Tylenol - PO 650 mg Q6H PRN Administration FEVER Bisacodyl 10 mg 03/01/18 21:33 Dulcolax Suppository - RC DAILY PRN CONSTIPATION Diazepam 5 mg 03/01/18 22:15 03/04/18 05:48 Valium - PO 5 mg TID MARY Administration Docusate Sodium 100 mg 03/01/18 22:00 03/04/18 05:48 Colace - PO 100 mg TID MARY Administration Ferrous Sulfate 325 mg 03/02/18 14:00 03/04/18 10:48 Feosol - PO 325 mg DAILY MARY Administration Gabapentin 300 mg 03/01/18 22:00 03/04/18 05:48 Neurontin - PO 300 mg TID MARY Administration Lactated Ringer's 1,000 mls @ 100 mls/hr 03/02/18 07:43 03/04/18 12:45 Lactated Ringers Solution IV 100 mls/hr ASDIR MARY Administration Vancomycin HCl 1,250 mg/ 250 mls @ 166.667 mls/hr 03/02/18 10:00 03/04/18 10: 46 Dextrose IVPB 166.667 mls/hr BID MARY Administration Protocol Piperacillin Sod/Tazobactam 100 mls @ 200 mls/hr 03/02/18 17:41 03/04/18 10: 00 Sod 4.5 gm/ Dextrose IVPB 200 mls/hr Q8H-IV MARY Administration Protocol Loratadine 10 mg 03/02/18 10:00 03/04/18 10:48 Claritin - PO 10 mg DAILY MARY Administration Multivitamins/Minerals/Vitamin C 1 tab 03/02/18 10:15 03/04/18 10:48 Tab-A-Vit - PO 1 tab DAILY MARY Administration Oxycodone HCl 10 mg 03/01/18 18:35 Roxicodone - PO Q4H PRN PAIN LEVEL 6-10 Oxycodone HCl 5 mg 03/01/18 18:35 03/04/18 11:14 Roxicodone - PO 5 mg Q4H PRN Administration PAIN LEVEL 1-5 Oxycodone HCl 10 mg 03/01/18 22:00 03/04/18 10:47 Oxycontin - PO 10 mg BID MARY Administration Pantoprazole Sodium 20 mg 03/01/18 22:00 03/04/18 10:48 Protonix - PO 20 mg BID MARY Administration Topiramate 50 mg 03/01/18 22:15 03/03/18 22:57 Topamax - PO 50 mg HS MARY Administration ASSESSMENT/PLAN: 42 y/o F w/ 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 -POD3 -pain control with oxycodone, tylenol, neurontin -ID morphine as needed for breakthrough pain -Valium for anxiety -topiramate for Sz PPx -Albuterol nebulizer PRN, incentive spirometer -Bedrest/HOB flat/side to side OK per NeuroSx -neuro checks q4h -Vancomycin/Zosyn empiric coverage for possible infection w/ ID on board -LR @ 100 -regular diet -lumbar drain w/ 10cc/hr CSF drainage, may be removed in AM per NeuroSx #anemia -improving -Fe/MVI #FEN -LR @ 100 -monitor BMP -regular #PPx -DVT: SCDs -GI: bisacodyl, PTX, colace -Sz: topiramate #Dispo -continue to monitor in ICU Visit type - Emergency Visit Emergency Visit: No - New Patient This patient is new to me today: No - Critical Care Critical Care patient: Yes Total Critical Care Time (in minutes): 40 Critical Care Statement: The care of this patient involved high complexity decision making to prevent further life threatening deterioration of the patient 's condition and/or to evaluate & treat vital organ system(s) failure or risk of failure.
[2018-03-04] MEDS ORDERED: IRON SUCROSE INJECTION 200 MG in SODIUM CHLORIDE 90 ML IVPB ONE (17:18)
[2018-03-04] MEDS ORDERED: valACYclovir HCL 500 MG TABLET (FP) PO ONE (19:09)
[2018-03-04] MEDS: TOPIRAMATE 25 MG TABLET (FP) PO SCH (21:28)
[2018-03-05] MEDS: PIPERACILLIN/TAZOB 4.5 GM 4.5 GM in DEXTROSE 5%-WATER 100 ML IVPB SCH ×2 (02:30→09:41)
[2018-03-05] MEDS ORDERED: PT OWN MED DRAWER 7, Y5N ONE ×3 (03:24→14:47)
[2018-03-05] MEDS: LACTATED RINGERS SOLUTION 1,000 ML IV SCH ×3 (04:08→09:41)
[2018-03-05] MEDS: GABAPENTIN 300 MG CAPSULE (FP) PO SCH ×3 (05:50→21:08)
[2018-03-05] MEDS: diazePAM 5 MG TABLET PO SCH ×3 (05:50→21:08)
[2018-03-05] MEDS: DOCUSATE SODIUM 100 MG CAPSULE (FP) PO SCH ×3 (05:50→21:07)
[2018-03-05 06:12] LABS: BASO % 0.6 % (0-2.0); EOS % 5.4 % (0-4.5); HEMATOCRIT 28.5 % (32.4-45.2); HEMOGLOBIN 9.3 GM/dL (10.7-15.3); LYMPH % 32.9 % (8-40); MCH 26.6 pg (25.7-33.7); MCHC 32.8 g/dl (32.0-36.0); MEAN CELL VOLUME 81.2 fl (80-96); MEAN PLT VOLUME 8.5 fl (7.5-11.1); MONO % 5.8 % (3.8-10.2); NEUT % 55.3 % (42.8-82.8); PLATELET COUNT 290 K/MM3 (134-434); RBC 3.51 M/mm3 (3.60-5.2); RDW 14.8 % (11.6-15.6); WHITE BLOOD COUNT 6.5 K/mm3 (4.0-10.0)
[2018-03-05 06:30] LABS: ANION GAP 7 MMOL/L (8-16); BLOOD UREA NITROGEN 11 mg/dL (7-18); CALCIUM 8.5 mg/dL (8.5-10.1); CHLORIDE 108 mmol/L (98-107); CO2 25 mmol/L (21-32); CREATININE 0.6 mg/dL (0.55-1.3); GLUCOSE,RANDOM 80 mg/dL (74-106); MAGNESIUM 1.8 mg/dL (1.8-2.4); PHOSPHOROUS 4.7 mg/dL (2.5-4.9); POTASSIUM 4.2 mmol/L (3.5-5.1); SODIUM 140 mmol/L (136-145)
--- NOTE | 2018-03-05 07:17 | PN ---
Progress Note (short form) - Note Progress Note: NEUROSURGERY POD #4 LBP No H/A, N/V PE: T 99.1, VSS CSF- 10 c output/hr for over 42 hours consecutively General- unremarkable CV- RRR; Lungs- CTA B; Abd- benign; Ext- no sign of DVT CN- intact; Motor- 4+-5/5 B LE; Sensation- intact LT; DTR- intact Wound- slight drainage from around drain site WBC 6.5, Hgb 9.3 Superficial and deep wound cultures negative x 48 hrs, final pending, gram stain with some PMN's, no bacteria CSF gram stain and culture negative LE doppler- negative for DVT Bedrest/HOB flat for 6 hrs, observe wound D/C lumbar drain, if dressing dry can be up in 6 hours On oxycontin and prn oxycodone, and valium On vanco and Zosyn currently Bowel regimen Regular diet On MVI D/C Ha when OOB Appreciate ID f/u, discussed iv abx regimen given history/circumstances, pt agreeable Probiotic
[2018-03-05] MEDS: LACTOBACILLUS ACIDOPHILUS 1 TABLET PO SCH (09:40)
[2018-03-05] MEDS: oxyCODONE HCL 10 MG SUSTAINED ACTING TABLET PO SCH ×2 (09:40→21:08)
[2018-03-05] MEDS: PANTOPRAZOLE 20 MG TABLET (FP) PO SCH ×2 (09:41→21:14)
[2018-03-05] MEDS: VANCOMYCIN 1,250 MG in DEXTROSE 5%-WATER - 250 ML IVPB SCH (09:41)
[2018-03-05] MEDS: FERROUS SO4 325 MG TABLET (FP) PO SCH (09:41)
[2018-03-05] MEDS: LORATADINE 10 MG TABLET PO SCH (09:41)
[2018-03-05] MEDS: MULTIVITAMINS (DAILY MVI) TABLET (FP) PO SCH (09:41)
--- NOTE | 2018-03-05 09:58 | PN ---
Progress Note, Physician Chief Complaint: AWAKE ALERT BEDSIDE FEELING BETTER - Current Medication List Current Medications: Active Medications Acetaminophen (Tylenol -) 650 mg PO Q6H PRN PRN Reason: FEVER Last Admin: 03/04/18 11:14 Dose: 650 mg Bisacodyl (Dulcolax Suppository -) 10 mg RC DAILY PRN PRN Reason: CONSTIPATION Diazepam (Valium -) 5 mg PO TID [facility] Last Admin: 03/05/18 05:50 Dose: 5 mg Docusate Sodium (Colace -) 100 mg PO TID [facility] Last Admin: 03/05/18 05:50 Dose: 100 mg Ferrous Sulfate (Feosol -) 325 mg PO DAILY [facility] Last Admin: 03/05/18 09:41 Dose: 325 mg Gabapentin (Neurontin -) 300 mg PO TID [facility] Last Admin: 03/05/18 05:50 Dose: 300 mg Lactated Ringer's (Lactated Ringers Solution) 1,000 mls @ 100 mls/hr IV ASDIR [facility] Last Admin: 03/05/18 09:41 Dose: 100 mls/hr Vancomycin HCl 1,250 mg/ (Dextrose) 250 mls @ 166.667 mls/hr IVPB BID [facility]; Protocol Last Admin: 03/05/18 09:41 Dose: 166.667 mls/hr Piperacillin Sod/Tazobactam (Sod 4.5 gm/ Dextrose) 100 mls @ 200 mls/hr IVPB Q8H-IV MARY; Protocol Last Admin: 03/05/18 09:41 Dose: 200 mls/hr Lactobacillus Acidophilus (Bacid -) 1 tab PO DAILY [facility] Last Admin: 03/05/18 09:40 Dose: 1 tab Loratadine (Claritin -) 10 mg PO DAILY [facility] Last Admin: 03/05/18 09:41 Dose: 10 mg Multivitamins/Minerals/Vitamin C (Tab-A-Vit -) 1 tab PO DAILY [facility] Last Admin: 03/05/18 09:41 Dose: 1 tab Oxycodone HCl (Oxycontin -) 10 mg PO BID [facility] Last Admin: 03/05/18 09:40 Dose: 10 mg Pantoprazole Sodium (Protonix -) 20 mg PO BID [facility] Last Admin: 03/05/18 09:41 Dose: 20 mg Topiramate (Topamax -) 50 mg PO [facility] Last Admin: 03/04/18 21:28 Dose: 50 mg - Objective Vital Signs: Vital Signs Temperature 99.5 F 03/05/18 08:00 Pulse Rate 76 03/05/18 08:00 Respiratory Rate 18 03/05/18 08:00 Blood Pressure 98/63 03/05/18 08:00 O2 Sat by Pulse Oximetry (%) 100 03/04/18 21:00 Constitutional: Yes: Mild Distress Eyes: Yes: WNL HENT: Yes: WNL Neck: Yes: WNL Cardiovascular: Yes: WNL Respiratory: Yes: WNL Gastrointestinal: Yes: WNL Genitourinary: Yes: WNL Musculoskeletal: Yes: Back Pain, Muscle Weakness Extremities: Yes: WNL Edema: No Peripheral Pulses WNL: Yes Integumentary: Yes: WNL Wound/Incision: Yes: Clean/Dry Neurological: Yes: Pre-Existing Deficit, Other ...Motor Strength: LLE, RLE Psychiatric: Yes: WNL Labs: CBC, BMP 03/05/18 05:30 03/05/18 05:30 INR, PTT INR 0.99 (0.83-1.09) 03/01/18 16:55 Problem List - Problems (1) History of laminectomy Code(s): Z98.890 - OTHER SPECIFIED POSTPROCEDURAL STATES (2) Post op infection Code(s): T81.40XA - INFECTION FOLLOWING A PROCEDURE, UNSPECIFIED, INIT Assessment/Plan POD #3 POST-OP INFECTION L5-S1 DRAINING SANGUINOUS FLUID IV ABX PER ID ON VANCO 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
--- NOTE | 2018-03-05 12:38 | PN ---
Teaching Attending Note Name of Resident: Hardeep Heck ATTENDING PHYSICIAN STATEMENT I saw and evaluated the patient. I reviewed the resident's note and discussed the case with the resident. I agree with the resident's findings and plan as documented. SUBJECTIVE: Patient seen and examined in the ICU. Awake and alert. Drain was removed this AM. Still with pain upon small movements. Seen by Neurosurgery this AM. No CP or SOB. Intake & Output 03/02/18 03/03/18 03/04/18 03/05/18 23:59 23:59 23:59 23:59 Intake Total 5345 4190 4360 Output Total 4320 5820 2840 Balance 1025 -1630 1520 Weight 187 lb 6.287 oz 176 lb 180 lb 1.883 oz 179 lb 10.72 oz Last Vital Signs Temp Pulse Resp BP Pulse Ox 98.8 F 73 18 96/61 100 03/05/18 10:00 03/05/18 12:00 03/05/18 12:00 03/05/18 12:00 03/05/18 09:00 Active Medications Acetaminophen (Tylenol -) 650 mg PO Q6H PRN PRN Reason: FEVER Last Admin: 03/04/18 11:14 Dose: 650 mg Bisacodyl (Dulcolax Suppository -) 10 mg RC DAILY PRN PRN Reason: CONSTIPATION Diazepam (Valium -) 5 mg PO TID [facility] Last Admin: 03/05/18 05:50 Dose: 5 mg Docusate Sodium (Colace -) 100 mg PO TID [facility] Last Admin: 03/05/18 05:50 Dose: 100 mg Ferrous Sulfate (Feosol -) 325 mg PO DAILY [facility] Last Admin: 03/05/18 09:41 Dose: 325 mg Gabapentin (Neurontin -) 300 mg PO TID [facility] Last Admin: 03/05/18 05:50 Dose: 300 mg Lactated Ringer's (Lactated Ringers Solution) 1,000 mls @ 100 mls/hr IV ASDIR [facility] Last Admin: 03/05/18 09:41 Dose: 100 mls/hr Vancomycin HCl 1,250 mg/ (Dextrose) 250 mls @ 166.667 mls/hr IVPB BID [facility]; Protocol Last Admin: 03/05/18 09:41 Dose: 166.667 mls/hr Piperacillin Sod/Tazobactam (Sod 4.5 gm/ Dextrose) 100 mls @ 200 mls/hr IVPB Q8H-IV MARY; Protocol Last Admin: 03/05/18 09:41 Dose: 200 mls/hr Lactobacillus Acidophilus (Bacid -) 1 tab PO DAILY [facility] Last Admin: 03/05/18 09:40 Dose: 1 tab Loratadine (Claritin -) 10 mg PO DAILY [facility] Last Admin: 03/05/18 09:41 Dose: 10 mg Multivitamins/Minerals/Vitamin C (Tab-A-Vit -) 1 tab PO DAILY [facility] Last Admin: 03/05/18 09:41 Dose: 1 tab Oxycodone HCl (Oxycontin -) 10 mg PO BID [facility] Last Admin: 03/05/18 09:40 Dose: 10 mg Oxycodone HCl (Roxicodone -) 5 mg PO Q4H PRN PRN Reason: PAIN Pantoprazole Sodium (Protonix -) 20 mg PO BID [facility] Last Admin: 03/05/18 09:41 Dose: 20 mg Topiramate (Topamax -) 50 mg PO HS [facility] Last Admin: 03/04/18 21:28 Dose: 50 mg Valacyclovir HCl (Valtrex -) 500 mg PO BID [facility] GENERAL: Awake and alert HEAD: Posterior drain removed EYES: Sclera anicteric, conjunctiva clear. EARS, NOSE, THROAT: Moist mucous membranes. NECK: supple LUNGS: Breath sounds equal, clear to auscultation bilaterally. HEART: Regular rate and rhythm, normal S1 and S2 ABDOMEN: Soft, nontender, not distended, globally decreased bowel sounds MUSCULOSKELETAL: No bony deformities UPPER EXTREMITIES: 2+ pulses, warm, well-perfused. No peripheral edema. LOWER EXTREMITIES: 2+ pulses, warm, well-perfused. No peripheral edema. NEUROLOGICAL: Non-focal SKIN: Warm, dry Laboratory Results - last 24 hr 03/05/18 03/05/18 05:30 05:30 WBC 6.5 RBC 3.51 L Hgb 9.3 L Hct 28.5 L MCV 81.2 MCH 26.6 MCHC 32.8 RDW 14.8 Plt Count 290 MPV 8.5 Absolute Neuts (auto) 3.6 Neutrophils % 55.3 Lymphocytes % 32.9 Monocytes % 5.8 Eosinophils % 5.4 H Basophils % 0.6 Nucleated RBC % 0 Sodium 140 Potassium 4.2 Chloride 108 H Carbon Dioxide 25 Anion Gap 7 L BUN 11 Creatinine 0.6 Creat Clearance w eGFR > 60 Random Glucose 80 Calcium 8.5 Phosphorus 4.7 Magnesium 1.8 Problem List - Problems (1) History of laminectomy Code(s): Z98.890 - OTHER SPECIFIED POSTPROCEDURAL STATES (2) Post op infection Code(s): T81.40XA - INFECTION FOLLOWING A PROCEDURE, UNSPECIFIED, INIT ASSESSMENT/PLAN: POD #4 S/P Re-exploration of L5-S1 fusion Removal of posterolateral bone grafts [place] of new autologous bone grafts / expansion of L5 and S1 laminectomies / foramentomies / microdissection Lumbar drain placement at L2-3. Suspected surgical wound infection (All cultures are negative) Pain control VTE prophylaxis O2 as needed Incentive Spirometry Albuterol nebulizer PRN Neuro checks ABX per ID Dr Dasilva
[2018-03-05] MEDS ORDERED: oxyCODONE HCL 5 MG TABLET ONE (12:42)
[2018-03-05] MEDS: oxyCODONE HCL 5 MG TABLET PO PRN (12:43)
--- NOTE | 2018-03-05 13:27 | PN ---
Progress Note (short form) - Note Progress Note: csf drain out feels better Vital Signs Period Temp Pulse Resp BP Sys/Streeetr Pulse Ox Last 24 Hr 98.3 F-99.5 F 61-79 12-19 90-126/40-75 100-100 cor-rrr lungs clear abd soft,nt ext no edema CBC, BMP 03/05/18 05:30 03/05/18 05:30 Microbiology 03/01/18 22:00 Drainage (Swab) Gram Stain - Final 03/01/18 22:00 Drainage (Swab) Wound Culture - Preliminary 03/01/18 22:00 Drainage (Swab) Gram Stain - Final 03/01/18 22:00 Drainage (Swab) Wound Culture - Preliminary 03/01/18 16:55 Blood - Peripheral Venous Blood Culture - Preliminary NO GROWTH OBTAINED AFTER 72 HOURS, INCUBATION TO CONTINUE FOR 2 DAYS. 03/01/18 16:55 Blood - Peripheral Venous Blood Culture - Preliminary NO GROWTH OBTAINED AFTER 72 HOURS, INCUBATION TO CONTINUE FOR 2 DAYS. 03/01/18 21:30 Cerebral Spinal Fluid - Lumbar Puncture Gram Stain - Final 03/01/18 21:30 Cerebral Spinal Fluid - Lumbar Puncture CSF Culture - Final 03/01/18 21:30 Cerebral Spinal Fluid - Lumbar Puncture Gram Stain - Final a/p r/o post op wound infection-drains out she was pretreated with keflex, PMNs on gram stain have asked micro to hold cultures for 2 weeks will switch to rocephin 2 g daily with plans for PICC line placement for home iv antiibotics -6 weeks check esr/crp d/w Dr Peguero d/w patient at length Problem List - Problems (1) Post op infection Code(s): T81.40XA - INFECTION FOLLOWING A PROCEDURE, UNSPECIFIED, INIT (2) History of laminectomy Code(s): Z98.890 - OTHER SPECIFIED POSTPROCEDURAL STATES
--- NOTE | 2018-03-05 14:37 | PN ---
Physical Exam: SUBJECTIVE: Patient seen and examined at bedside. Pain at surgical site, no other complaints. Urinating through hernadez, +flatus, no BM as yet. OBJECTIVE: Vital Signs Period Temp Pulse Resp BP Sys/Streeter Pulse Ox Last 24 Hr 98.3 F-99.5 F 61-79 12-19 90-126/40-75 100-100 GENERAL: A&Ox3, NAD HEAD: NC/AT EYES: PERRLA, EOMI EARS, NOSE, THROAT: Moist mucous membranes. NECK: supple, full ROM, no LAD, no CAD LUNGS: CTA b/l HEART: RRR no m/r/g ABDOMEN: +bs, soft, NTND EXTREMITIES: 2+ pulses, warm, well-perfused. No peripheral edema. NEUROLOGICAL: CN II-XII intact b/l, 4+ strength x 4 extremities, sensation intact throughout PSYCHIATRIC: appropriate mood, affect SKIN: Warm, dry, no rashes, lesions, murmurs : hernadez in place DRAINS: L2-L3 lumbar drain removed this AM, had been draining 10cc/hr Laboratory Results - last 24 hr 03/05/18 03/05/18 05:30 05:30 WBC 6.5 RBC 3.51 L Hgb 9.3 L Hct 28.5 L MCV 81.2 MCH 26.6 MCHC 32.8 RDW 14.8 Plt Count 290 MPV 8.5 Absolute Neuts (auto) 3.6 Neutrophils % 55.3 Lymphocytes % 32.9 Monocytes % 5.8 Eosinophils % 5.4 H Basophils % 0.6 Nucleated RBC % 0 Sodium 140 Potassium 4.2 Chloride 108 H Carbon Dioxide 25 Anion Gap 7 L BUN 11 Creatinine 0.6 Creat Clearance w eGFR > 60 Random Glucose 80 Calcium 8.5 Phosphorus 4.7 Magnesium 1.8 Active Medications Generic Name Dose Route Start Last Admin Trade Name Freq PRN Reason Stop Dose Admin Acetaminophen 650 mg 03/01/18 21:33 03/04/18 11:14 Tylenol - PO 650 mg Q6H PRN Administration FEVER Bisacodyl 10 mg 03/01/18 21:33 Dulcolax Suppository - RC DAILY PRN CONSTIPATION Diazepam 5 mg 03/01/18 22:15 03/05/18 05:50 Valium - PO 5 mg TID MARY Administration Docusate Sodium 100 mg 03/01/18 22:00 03/05/18 05:50 Colace - PO 100 mg TID MARY Administration Ferrous Sulfate 325 mg 03/02/18 14:00 03/05/18 09:41 Feosol - PO 325 mg DAILY MARY Administration Gabapentin 300 mg 03/01/18 22:00 03/05/18 05:50 Neurontin - PO 300 mg TID MARY Administration Ceftriaxone Sodium 2 gm/ 100 mls @ 200 mls/hr 03/05/18 13:30 Dextrose IVPB DAILY [facility] Protocol Lactobacillus Acidophilus 1 tab 03/05/18 10:00 03/05/18 09:40 Bacid - PO 1 tab DAILY [facility] Administration Loratadine 10 mg 03/02/18 10:00 03/05/18 09:41 Claritin - PO 10 mg DAILY [facility]ARY Administration Multivitamins/Minerals/Vitamin C 1 tab 03/02/18 10:15 03/05/18 09:41 Tab-A-Vit - PO 1 tab DAILY [facility] Administration Oxycodone HCl 10 mg 03/01/18 22:00 03/05/18 09:40 Oxycontin - PO 10 mg BID MARY Administration Oxycodone HCl 5 mg 03/05/18 12:27 03/05/18 12:43 Roxicodone - PO 5 mg Q4H PRN Administration PAIN Pantoprazole Sodium 20 mg 03/01/18 22:00 03/05/18 09:41 Protonix - PO 20 mg BID MARY Administration Topiramate 50 mg 03/01/18 22:15 03/04/18 21:28 Topamax - PO 50 mg HS MARY Administration Valacyclovir HCl 500 mg 03/05/18 13:00 Valtrex - PO BID [facility] ASSESSMENT/PLAN: 42 y/o F w/ 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 -POD4 -pain control with oxycodone, tylenol, neurontin -ID morphine as needed for breakthrough pain -Valium for anxiety -topiramate for Sz PPx -Albuterol nebulizer PRN, incentive spirometer -cleared by NeuroSx to rise above parallel, OOB -per ID, Ceftriaxone 2g daily, d/c other ABx, will need PICC line for d/c -regular diet -lumbar drain w/ 10cc/hr CSF drainage, may be removed in AM per NeuroSx #anemia -improving -Fe/MVI #cold sores -valacyclovir #FEN -no IVF -monitor BMP -regular #PPx -DVT: SCDs -GI: bisacodyl, PTX, colace -Sz: topiramate #Dispo -transfer to med/surg Visit type - Emergency Visit Emergency Visit: No - New Patient This patient is new to me today: No - Critical Care Critical Care patient: Yes Total Critical Care Time (in minutes): 40 Critical Care Statement: The care of this patient involved high complexity decision making to prevent further life threatening deterioration of the patient 's condition and/or to evaluate & treat vital organ system(s) failure or risk of failure.
[2018-03-05] MEDS: CEFTRIAXONE 2 GM in DEXTROSE 5%-WATER - 100 ML IVPB SCH (14:49)
[2018-03-05] MEDS: valACYclovir HCL 500 MG TABLET (FP) PO SCH ×2 (14:49→21:09)
[2018-03-05] MEDS: TOPIRAMATE 25 MG TABLET (FP) PO SCH (21:08)
[2018-03-05] MEDS ORDERED: IRON SUCROSE INJECTION 200 MG in SODIUM CHLORIDE 90 ML IVPB ONE (23:00)
[2018-03-06] MEDS: DOCUSATE SODIUM 100 MG CAPSULE (FP) PO SCH ×2 (06:06→13:21)
[2018-03-06] MEDS: diazePAM 5 MG TABLET PO SCH ×2 (06:06→13:21)
[2018-03-06] MEDS: GABAPENTIN 300 MG CAPSULE (FP) PO SCH ×2 (06:06→13:21)
[2018-03-06 06:31] LABS: BASO % 0.9 % (0-2.0); EOS % 6.3 % (0-4.5); HEMATOCRIT 30.6 % (32.4-45.2); HEMOGLOBIN 9.9 GM/dL (10.7-15.3); LYMPH % 35.9 % (8-40); MCH 26.4 pg (25.7-33.7); MCHC 32.3 g/dl (32.0-36.0); MEAN CELL VOLUME 81.8 fl (80-96); MEAN PLT VOLUME 8.1 fl (7.5-11.1); NEUT % 49.9 % (42.8-82.8); PLATELET COUNT 311 K/MM3 (134-434); RBC 3.74 M/mm3 (3.60-5.2); RDW 14.9 % (11.6-15.6); WHITE BLOOD COUNT 5.7 K/mm3 (4.0-10.0)
[2018-03-06 06:56] LABS: ANION GAP 5 MMOL/L (8-16); BLOOD UREA NITROGEN 9 mg/dL (7-18); CHLORIDE 111 mmol/L (98-107); CO2 24 mmol/L (21-32); CREATININE 0.5 mg/dL (0.55-1.3); GLUCOSE,RANDOM 77 mg/dL (74-106); PHOSPHOROUS 4.2 mg/dL (2.5-4.9); SODIUM 140 mmol/L (136-145)
[2018-03-06] MEDS ORDERED: PICC LINE 8 ML FLUSH PROTOCOL IVPUSH PRN (07:57)
--- NOTE | 2018-03-06 07:57 | PN ---
Progress Note (short form) - Note Progress Note: NEUROSURGERY POD #4 LBP No H/A, N/V PE: T 98.6, VSS Some L ant thigh discomfort General- unremarkable CV- RRR; Lungs- CTA B; Abd- benign; Ext- no sign of DVT CN- intact; Motor- 4+-5/5 B LE; Sensation- intact LT; DTR- intact Wound- minimal drainage from around lumbar drain site; changed WBC 5.1 Superficial and deep wound cultures negative x 48 hrs, final pending, gram stain with some PMN's, no bacteria CSF gram stain and culture negative On oxycontin and prn oxycodone, and valium On ceftriaxone Bowel regimen Regular diet On MVI D/C Ha Appreciate ID f/u, discussed iv abx regimen given history/circumstances, pt agreeable Probiotic outpatient OTC PICC line
[2018-03-06] MEDS ORDERED: PT OWN MED DRAWER 7, Y5N ONE ×2 (09:47→09:49)
[2018-03-06] MEDS: LACTOBACILLUS ACIDOPHILUS 1 TABLET PO SCH (09:58)
[2018-03-06] MEDS: oxyCODONE HCL 10 MG SUSTAINED ACTING TABLET PO SCH (09:59)
[2018-03-06] MEDS: LORATADINE 10 MG TABLET PO SCH (09:59)
[2018-03-06] MEDS: FERROUS SO4 325 MG TABLET (FP) PO SCH (09:59)
[2018-03-06] MEDS: PANTOPRAZOLE 20 MG TABLET (FP) PO SCH (10:01)
[2018-03-06] MEDS: valACYclovir HCL 500 MG TABLET (FP) PO SCH (10:01)
[2018-03-06] MEDS: MULTIVITAMINS (DAILY MVI) TABLET (FP) PO SCH (10:01)
[2018-03-06] MEDS: CEFTRIAXONE 2 GM in DEXTROSE 5%-WATER - 100 ML IVPB SCH (11:16)
--- NOTE | 2018-03-06 11:24 | PN ---
Teaching Attending Note Name of Resident: Hardeep Heck ATTENDING PHYSICIAN STATEMENT I saw and evaluated the patient. I reviewed the resident's note and discussed the case with the resident. I agree with the resident's findings and plan as documented. SUBJECTIVE: Patient seen and examined in the ICU. Awake and alert. Overall appears better. Intake & Output 03/03/18 03/04/18 03/05/18 03/06/18 23:59 23:59 23:59 23:59 Intake Total 4190 4360 2730 500 Output Total 5820 2840 2850 1000 Balance -1630 1520 -120 -500 Weight 176 lb 180 lb 1.883 oz 179 lb 10.72 oz 178 lb 9.191 oz Last Vital Signs Temp Pulse Resp BP Pulse Ox 98.6 F 72 19 121/81 100 03/06/18 06:00 03/06/18 10:00 03/06/18 10:00 03/06/18 10:00 03/06/18 09:00 Active Medications Acetaminophen (Tylenol -) 650 mg PO Q6H PRN PRN Reason: FEVER Last Admin: 03/04/18 11:14 Dose: 650 mg Bisacodyl (Dulcolax Suppository -) 10 mg RC DAILY PRN PRN Reason: CONSTIPATION Diazepam (Valium -) 5 mg PO TID [facility] Last Admin: 03/06/18 06:06 Dose: 5 mg Docusate Sodium (Colace -) 100 mg PO TID [facility] Last Admin: 03/06/18 06:06 Dose: 100 mg Ferrous Sulfate (Feosol -) 325 mg PO DAILY [facility] Last Admin: 03/06/18 09:59 Dose: 325 mg Gabapentin (Neurontin -) 300 mg PO TID [facility] Last Admin: 03/06/18 06:06 Dose: 300 mg IV Flush (Picc Line Flush) 8 ml IVPUSH PRN PRN PRN Reason: Protocol Ceftriaxone Sodium 2 gm/ (Dextrose) 100 mls @ 200 mls/hr IVPB DAILY [facility]; Protocol Last Admin: 03/06/18 11:16 Dose: 200 mls/hr Lactobacillus Acidophilus (Bacid -) 1 tab PO DAILY [facility] Last Admin: 03/06/18 09:58 Dose: 1 tab Loratadine (Claritin -) 10 mg PO DAILY [facility] Last Admin: 03/06/18 09:59 Dose: 10 mg Multivitamins/Minerals/Vitamin C (Tab-A-Vit -) 1 tab PO DAILY [facility] Last Admin: 03/06/18 10:01 Dose: 1 tab Oxycodone HCl (Oxycontin -) 10 mg PO BID [facility] Last Admin: 03/06/18 09:59 Dose: 10 mg Oxycodone HCl (Roxicodone -) 5 mg PO Q4H PRN PRN Reason: PAIN Last Admin: 03/05/18 12:43 Dose: 5 mg Pantoprazole Sodium (Protonix -) 20 mg PO BID [facility] Last Admin: 03/06/18 10:01 Dose: 20 mg Topiramate (Topamax -) 50 mg PO HS [facility] Last Admin: 03/05/18 21:08 Dose: 50 mg Valacyclovir HCl (Valtrex -) 500 mg PO BID [facility] Last Admin: 03/06/18 10:01 Dose: 500 mg GENERAL: Awake and alert HEAD: Posterior drain removed EYES: Sclera anicteric, conjunctiva clear. EARS, NOSE, THROAT: Moist mucous membranes. NECK: supple LUNGS: Breath sounds equal, clear to auscultation bilaterally. HEART: Regular rate and rhythm, normal S1 and S2 ABDOMEN: Soft, nontender, not distended, globally decreased bowel sounds MUSCULOSKELETAL: No bony deformities UPPER EXTREMITIES: 2+ pulses, warm, well-perfused. No peripheral edema. LOWER EXTREMITIES: 2+ pulses, warm, well-perfused. No peripheral edema. NEUROLOGICAL: Non-focal SKIN: Warm, dry Laboratory Results - last 24 hr 03/06/18 03/06/18 03/06/18 05:30 05:30 05:30 WBC 5.7 RBC 3.74 Hgb 9.9 L Hct 30.6 L MCV 81.8 MCH 26.4 MCHC 32.3 RDW 14.9 Plt Count 311 MPV 8.1 Absolute Neuts (auto) 2.8 Neutrophils % 49.9 Lymphocytes % 35.9 Monocytes % 7.0 Eosinophils % 6.3 H Basophils % 0.9 Nucleated RBC % 0 ESR 74 H Sodium 140 Potassium 4.0 Chloride 111 H Carbon Dioxide 24 Anion Gap 5 L BUN 9 Creatinine 0.5 L Creat Clearance w eGFR > 60 Random Glucose 77 Calcium 9.0 Phosphorus 4.2 Magnesium 2.0 C-Reactive Protein 1.1 H Problem List - Problems (1) History of laminectomy Code(s): Z98.890 - OTHER SPECIFIED POSTPROCEDURAL STATES (2) Post op infection Code(s): T81.40XA - INFECTION FOLLOWING A PROCEDURE, UNSPECIFIED, INIT ASSESSMENT/PLAN: POD #5 S/P Re-exploration of L5-S1 fusion Removal of posterolateral bone grafts [place] of new autologous bone grafts / expansion of L5 and S1 laminectomies / foramentomies / microdissection Lumbar drain placement at L2-3. Suspected surgical wound infection (All cultures are negative) Pain control VTE prophylaxis O2 as needed Incentive Spirometry Albuterol nebulizer PRN Neuro checks ABX per ID D/C planning Dr Dasilva
--- NOTE | 2018-03-06 11:30 | PN ---
Physical Exam: SUBJECTIVE: Patient seen and examined at bedside. Pain well controlled, hernadez removed, sitting upright, has been OOB. No BM as yet. OBJECTIVE: Vital Signs Period Temp Pulse Resp BP Sys/Streeter Pulse Ox Last 24 Hr 98.6 F-98.8 F 61-108 15-21 90-121/50-89 100-100 GENERAL: A&Ox3, NAD HEAD: NC/AT EYES: PERRLA, EOMI EARS, NOSE, THROAT: Moist mucous membranes. NECK: supple, full ROM, no LAD, no CAD LUNGS: CTA b/l HEART: RRR no m/r/g ABDOMEN: +bs, soft, NTND EXTREMITIES: 2+ pulses, warm, well-perfused. No peripheral edema. NEUROLOGICAL: hand stoner, motor, sensory systems w/o focal deficit PSYCHIATRIC: appropriate mood, affect SKIN: Warm, dry, no rashes, lesions, murmurs : hernadez removed DRAINS: removed Laboratory Results - last 24 hr 03/06/18 03/06/18 03/06/18 05:30 05:30 05:30 WBC 5.7 RBC 3.74 Hgb 9.9 L Hct 30.6 L MCV 81.8 MCH 26.4 MCHC 32.3 RDW 14.9 Plt Count 311 MPV 8.1 Absolute Neuts (auto) 2.8 Neutrophils % 49.9 Lymphocytes % 35.9 Monocytes % 7.0 Eosinophils % 6.3 H Basophils % 0.9 Nucleated RBC % 0 ESR 74 H Sodium 140 Potassium 4.0 Chloride 111 H Carbon Dioxide 24 Anion Gap 5 L BUN 9 Creatinine 0.5 L Creat Clearance w eGFR > 60 Random Glucose 77 Calcium 9.0 Phosphorus 4.2 Magnesium 2.0 C-Reactive Protein 1.1 H Active Medications Generic Name Dose Route Start Last Admin Trade Name Freq PRN Reason Stop Dose Admin Acetaminophen 650 mg 03/01/18 21:33 03/04/18 11:14 Tylenol - PO 650 mg Q6H PRN Administration FEVER Bisacodyl 10 mg 03/01/18 21:33 Dulcolax Suppository - RC DAILY PRN CONSTIPATION Diazepam 5 mg 03/01/18 22:15 03/06/18 06:06 Valium - PO 5 mg TID MARY Administration Docusate Sodium 100 mg 03/01/18 22:00 10/12/18 06:06 Colace - PO 100 mg TID MARY Administration Ferrous Sulfate 325 mg 03/02/18 14:00 03/06/18 09:59 Feosol - PO 325 mg DAILY MARY Administration Gabapentin 300 mg 03/01/18 22:00 03/06/18 06:06 Neurontin - PO 300 mg TID MARY Administration IV Flush 8 ml 03/06/18 07:57 Picc Line Flush IVPUSH PRN PRN Protocol Ceftriaxone Sodium 2 gm/ 100 mls @ 200 mls/hr 03/05/18 13:30 03/06/18 11:16 Dextrose IVPB 200 mls/hr DAILY MARY Administration Protocol Lactobacillus Acidophilus 1 tab 03/05/18 10:00 03/06/18 09:58 Bacid - PO 1 tab DAILY MARY Administration Loratadine 10 mg 03/02/18 10:00 03/06/18 09:59 Claritin - PO 10 mg DAILY MARY Administration Multivitamins/Minerals/Vitamin C 1 tab 03/02/18 10:15 03/06/18 10:01 Tab-A-Vit - PO 1 tab DAILY MARY Administration Oxycodone HCl 10 mg 03/01/18 22:00 03/06/18 09:59 Oxycontin - PO 10 mg BID MARY Administration Oxycodone HCl 5 mg 03/05/18 12:27 03/05/18 12:43 Roxicodone - PO 5 mg Q4H PRN Administration PAIN Pantoprazole Sodium 20 mg 03/01/18 22:00 03/06/18 10:01 Protonix - PO 20 mg BID MARY Administration Topiramate 50 mg 03/01/18 22:15 03/05/18 21:08 Topamax - PO 50 mg HS MARY Administration Valacyclovir HCl 500 mg 03/05/18 13:00 03/06/18 10:01 Valtrex - PO 500 mg BID MARY Administration ASSESSMENT/PLAN: 42 y/o F w/ PMHx L5/S1 decompression 2wks [employer] by Dr. Peguero, p/w drainage from incision site, returned to OR for correction, #s/p reexploration of L5-S1 fusion, removal of posterolateral bone grafts, harvest of new autologous bone grafts'; expansion of B L5 and S1 laminectomies, foramentomies, microdissection; lumbar drain placement at L2-3. -POD5 -pain control with oxycodone, tylenol, neurontin -Valium for anxiety -topiramate for Sz PPx -Albuterol nebulizer PRN, incentive spirometer -OOB, walked with PT, cleared for d/c w/ PICC line -Ceftriaxone 2g daily x 6 weeks -regular diet #anemia -improving -Fe/MVI #cold sores -valacyclovir #FEN -no IVF -monitor BMP -regular #PPx -DVT: SCDs -GI: bisacodyl, PTX, colace -Sz: topiramate #Dispo -d/c home today w/ PICC line Visit type - Emergency Visit Emergency Visit: No - New Patient This patient is new to me today: No - Critical Care Critical Care patient: Yes Total Critical Care Time (in minutes): 40 Critical Care Statement: The care of this patient involved high complexity decision making to prevent further life threatening deterioration of the patient 's condition and/or to evaluate & treat vital organ system(s) failure or risk of failure.
--- NOTE | 2018-03-06 12:21 | PN ---
Progress Note (short form) - Note Progress Note: ambulated with brace on alert Vital Signs Period Temp Pulse Resp BP Sys/Streeter Pulse Ox Last 24 Hr 98.6 F-99.7 F 61-108 15-21 90-121/50-89 100-100 cor-rrr lungs clear abd soft,nt ext no edema CBC, BMP 03/06/18 05:30 03/06/18 05:30 Laboratory Tests 03/06/18 03/06/18 05:30 05:30 ESR 74 H C-Reactive Protein 1.1 H Microbiology 03/01/18 22:00 Drainage (Swab) Gram Stain - Final 03/01/18 22:00 Drainage (Swab) Wound Culture - Preliminary 03/01/18 22:00 Drainage (Swab) Gram Stain - Final 03/01/18 22:00 Drainage (Swab) Wound Culture - Preliminary 03/01/18 16:55 Blood - Peripheral Venous Blood Culture - Preliminary NO GROWTH OBTAINED AFTER 96 HOURS, INCUBATION TO CONTINUE FOR 1 DAYS. 03/01/18 16:55 Blood - Peripheral Venous Blood Culture - Preliminary NO GROWTH OBTAINED AFTER 96 HOURS, INCUBATION TO CONTINUE FOR 1 DAYS. 03/01/18 21:30 Cerebral Spinal Fluid - Lumbar Puncture Gram Stain - Final 03/01/18 21:30 Cerebral Spinal Fluid - Lumbar Puncture CSF Culture - Final 03/01/18 21:30 Cerebral Spinal Fluid - Lumbar Puncture Gram Stain - Final a/p r/o post op wound infection-drains out she was pretreated with keflex, PMNs on gram stain have asked micro to hold cultures for 2 weeks will switch to rocephin 2 g daily with plans for PICC line placement for home iv antiibotics -day scripts for antibiotics and labs on chart probiotics daily diflucan 150 g weekly can f/u in our office d/w patient Problem List - Problems (1) Post op infection Code(s): T81.40XA - INFECTION FOLLOWING A PROCEDURE, UNSPECIFIED, INIT (2) History of laminectomy Code(s): Z98.890 - OTHER SPECIFIED POSTPROCEDURAL STATES
[2018-03-06] MEDS: oxyCODONE HCL 5 MG TABLET PO PRN (13:21)
[2018-03-06 14:47] VITALS: BP 127/90; TEMP 98.8
--- NOTE | 2018-03-06 14:49 | DS ---
Physical Examination Vital Signs: Vital Signs Temperature 99.7 F H 03/06/18 10:00 Pulse Rate 70 03/06/18 11:40 Respiratory Rate 18 03/06/18 11:40 Blood Pressure 101/73 03/06/18 11:40 O2 Sat by Pulse Oximetry (%) 100 03/06/18 09:00 Constitutional: Yes: Mild Distress Eyes: Yes: WNL HENT: Yes: WNL Neck: Yes: WNL Cardiovascular: Yes: WNL Respiratory: Yes: WNL Gastrointestinal: Yes: WNL Renal/: Yes: WNL Musculoskeletal: Yes: Back Pain Extremities: Yes: WNL Edema: No Peripheral Pulses WNL: Yes Integumentary: Yes: WNL Wound/Incision: Yes: Dressing Dry and Intact Neurological: Yes: Pre-Existing Deficit ...Motor Strength: LLE, RLE Psychiatric: Yes: Other Labs: CBC, BMP 03/06/18 05:30 03/06/18 05:30 Discharge Summary Reason For Visit: POSTOPERATIVE INFECTION Current Active Problems History of laminectomy (Acute) Post op infection (Acute) Procedures: Principal: LUMBAR EXPLORATION AND IRRIGATION FOR INFECTIONS Hospital Course: LUMBAR SURGERY WITH NEUROSURGERY. IRON IV, PAIN MEDS. Condition: Stable - Instructions Diet, Activity, Other Instructions: Post-op Lumbar Decompression Diet: Regular Activity: Out of bed with back brace. May shower but keep incision line dry. Change dressing afterwards Restrictions: Do not lift anything over 10lbs. Additional Instructions: Keep incision line clean and dry. Change dressing daily. Report any chills, fever (100 or greater), any wound drainage, or any neurological changes to Dr. Peguero. Do not drive for two weeks. Initial postop visit: Call Dr Peguero's office to be seen in about 2 weeks Disposition: VNS/HOME HEALTH CARE - Home Medications Comprehensive Discharge Medication List: Ambulatory Orders Loratadine [Claritin] 10 mg PO DAILY 08/16/11 Omeprazole Magnesium [Prilosec Otc] 20 mg PO BID 08/16/11 Topiramate [Topamax] 50 mg PO HS 09/30/17 Tizanidine HCl 2 mg PO TID 11/18/17 Gabapentin [Neurontin -] 300 mg PO TID #90 capsule 02/20/18 Oxycodone HCl 5 mg PO QID PRN #60 tablet MDD 4 02/21/18 Ceftriaxone [Rocephin -] 2 gm IVPB DAILY #40 vial 03/06/18 Fluconazole [Diflucan] 150 mg PO WEEKLY #6 tablet 03/06/18 Lactobacillus Acidophilus [Bacid -] 1 tab PO DAILY #60 tab MDD 1 03/06/18 Picc Line Flush [Picc Line Flush -] 8 ml IVPUSH PRN PRN #120 ml 03/06/18 Valacyclovir HCl [Valtrex -] 500 mg PO BID #14 tablet MDD 2 03/06/18 oxyCODONE HCL [Roxicodone -] 5 mg PO Q6H PRN #60 tablet MDD 4 03/06/18 oxyCODONE SR [Oxycontin] 10 mg PO BID #30 tab.er.12h MDD 2 03/06/18
[2018-03-06 15:51] VITALS: PULSE 75
== END 2018-03-06 16:06 | disposition home health service (06) | DRG 858 ==
LOC: JER 16:09 → JERBED 17:28 → JICU 23:54
PROVIDERS: ADMIT Neurological Surgery; ATTEND Neurological Surgery
PROC: 3E10X8Z Irrigation of Skin and Mucous Membranes using Irrigating Substance (ICD-10-PCS; 2018-03-01)
PROC: 0SG0071 Fusion of Lumbar Vertebral Joint with Autologous Tissue Substitute, Posterior Approach, Posterior Column, Open Approach (ICD-10-PCS; principal; 2018-03-01 20:00)
PROC: 02HV33Z Insertion of Infusion Device into Superior Vena Cava, Percutaneous Approach (ICD-10-PCS; 2018-03-06)
DX: T81.40XA Infection following a procedure, unspecified, initial encounter (principal); Y83.9 Surgical procedure, unspecified as the cause of abnormal reaction of the patient, or of later complication, without mention of misadventure at the time of the procedure; D64.9 Anemia, unspecified; F17.210 Nicotine dependence, cigarettes, uncomplicated; K21.9 Gastro-esophageal reflux disease without esophagitis; M54.16 Radiculopathy, lumbar region
CPT/HCPCS: 36415; 36569; 72100-TC-FY; 72131-TC; 77001-TC-FY; 80048; 80053; 82945; 83735; 84100; 84157; 84702; 85025; 85027; 85610; 85651; 85730; 86140; 86850; 86900; 86901; 87040; 87070; 87205; 93971-TC; 94760; 97116-GP; 97161-GP; 99284-25; C1751; G0480; J0131; J1756; J7030

== ENCOUNTER → 2018-03-27 | Day surgery (SDC) | payer OTHER | END | disposition home or self-care (01) | LOC: JRADIR 11:56 | PROVIDERS: ATTEND Internal Medicine | PROC: 3E013GC Introduction of Other Therapeutic Substance into Subcutaneous Tissue, Percutaneous Approach (ICD-10-PCS; principal; 2018-03-27) | DX: Z53.8 Procedure and treatment not carried out for other reasons (principal) | CPT/HCPCS: 22510; 77001-TC-FY ==

== ENCOUNTER 2018-04-06 11:55 | Emergency (ER) | payer OTHER ==
[2018-04-06 12:19] VITALS: BP 116/65; PULSE 82; TEMP 99.4; BMI 28.1
[2018-04-06] MEDS ORDERED: VANCOMYCIN 1,250 MG in DEXTROSE 5%-WATER - 250 ML IVPB ONE (13:39)
--- NOTE | 2018-04-06 13:43 | PDOC ---
History of Present Illness - General Chief Complaint: SIRS, Suspected/Possible Stated Complaint: PCP SENT Time Seen by Provider: 04/06/18 12:58 History Source: Patient Exam Limitations: No Limitations - History of Present Illness Initial Comments: 04/06/18 13:43 This is a 42 year old female with a a history of multiple back surgeries, recent lumbar exploration and irrigation (03/12), for source of infection, with PICC line, on fdc IV ceftriaxone, who presents with continuos low grade fevers since PICC line was inserted. Tmin 99-Tmax 100.3 F. Endorses mild tenderness, erythema and some swelling at site of PICC line, right arm. She denies sick contacts, travel, n, v, chills, abdominal pain, diarrhea, cough, sputum production, sore throat, chest pain, sob. PMH: Disc herniation, back pain, L5-S1 spondylolisthesis, stenosis, radiculopathy, hypothyroid, HSV PSH:B L5 and partial B S1 laminectomies, facetectomy, foramenotomy, discectomy, interbody fusion L5-S1; B interbody implants L5-S1; pedicle screw fixation, fluoroscopy, microsurgical dissection, posterolateral fusion L5-S1 Social:1ppd cigarettes; Allergies: ciprofloxacin, levofloxacin Past History - Past Medical History Allergies/Adverse Reactions: Allergies Allergy/AdvReac Type Severity Reaction Status Date / Time ciprofloxacin Allergy Severe "anaphylaxi Verified 04/06/18 12:14 s" levofloxacin [Levofloxacin] Allergy Severe "anaphylaxi Verified 04/06/18 12:14 s" Home Medications: Ambulatory Orders Loratadine [Claritin] 10 mg PO DAILY 08/16/11 Omeprazole Magnesium [Prilosec Otc] 20 mg PO BID 08/16/11 Topiramate [Topamax] 50 mg PO HS 09/30/17 Tizanidine HCl 2 mg PO HS 11/18/17 Ceftriaxone [Rocephin -] 2 gm IVPB DAILY #40 vial 03/06/18 Lactobacillus Acidophilus [Bacid -] 1 tab PO DAILY #60 tab MDD 1 03/06/18 Picc Line Flush [Picc Line Flush -] 8 ml IVPUSH PRN PRN #120 ml 03/06/18 oxyCODONE HCL [Roxicodone -] 5 mg PO Q6H PRN #60 tablet MDD 4 03/06/18 oxyCODONE SR [Oxycontin] 10 mg PO BID #30 tab.er.12h MDD 2 03/06/18 Amoxicillin/Potassium Clav [Augmentin 875-125 Tablet] 1 each PO BID 7 Days #14 tablet 04/06/18 Cyclobenzaprine HCl [Flexeril -] 10 mg PO TID 04/06/18 Gabapentin [Neurontin -] 300 mg PO BID 04/06/18 Anemia: No Asthma: No Cancer: No Cardiac Disorders: No CVA: No COPD: No CHF: No Dementia: No Diabetes: No GI Disorders: Yes (acid reflux) Disorders: No HTN: No Hypercholesterolemia: No Liver Disease: No Seizures: No Thyroid Disease: No - Surgical History Abdominal Surgery: No Appendectomy: No Cardiac Surgery: No Cholecystectomy: No Lung Surgery: No Neurologic Surgery: Yes (cervical fusion 2017) Orthopedic Surgery: No - Suicide/Smoking/Psychosocial Hx Smoking Status: Yes Smoking History: Unknown if ever smoked Have you smoked in the past 12 months: Yes Number of Cigarettes Smoked Daily: 10 'Breaking Loose' booklet given: 02/16/18 Hx Alcohol Use: No Drug/Substance Use Hx: No Substance Use Type: None Hx Substance Use Treatment: No Review of Systems - Review of Systems Able to Perform ROS?: Yes Is the patient limited Panamanian proficient: No Constitutional: Yes: Fever, Weight Stable. No: Chills, Malaise, Night Sweats, Weakness HEENTM: Yes: Nose Congestion. No: Blurred Vision, Ear Discharge, Nose Pain, Nose Bleeding, Throat Pain Respiratory: No: Cough, Shortness of Breath, SOB with Exertion, Wheezing Cardiac (ROS): No: Chest Pain, Edema, Irregular Heart Rate, Lightheadedness ABD/GI: No: Abdominal Distended, Diarrhea, Nausea, Vomiting : No: Burning, Dysuria, Discharge, Frequency Musculoskeletal: Yes: Back Pain (chronic) Integumentary: Yes: Erythema (mile right arm) Neurological: No: Headache, Numbness, Paresthesia, Weakness, Unsteady Gait Endocrine: No: Intolerance to Cold, Intolerance to Heat, Increased Hunger, Increased Thirst Hematologic/Lymphatic: Yes: Anemia (chronic) *Physical Exam - Vital Signs Last Vital Signs Temp Pulse Resp BP Pulse Ox 99.4 F 82 18 116/65 99 04/06/18 12:18 04/06/18 12:18 04/06/18 12:18 04/06/18 12:18 04/06/18 12:18 - Physical Exam General Appearance: Yes: Appropriately Dressed HEENT: positive: Pharynx Normal Respiratory/Chest: positive: Lungs Clear, Normal Breath Sounds Cardiovascular: positive: Regular Rhythm, Regular Rate, S1, S2 Gastrointestinal/Abdominal: positive: Normal Bowel Sounds, Soft. negative: Tender Musculoskeletal: positive: Normal Inspection. negative: CVA Tenderness Extremity: positive: Other (right arm very mild erythema around PICC line ) Neurologic: positive: recycling technician II-XII NML intact, Fully Oriented, Alert ED Treatment Course - LABORATORY CBC & Chemistry Diagram: 04/06/18 13:55 04/06/18 13:55 Medical Decision Making - Medical Decision Making 04/06/18 14:17 This is a 42 year old female with a history of back surgeries as indicated in HPI, last was a lumbar exploration and irrigation, who presents with low grade fevers since PICC line insertion. #fever unknown origin: -possible PICC line infection vs other source, possibly viral with cold like symptoms -PICC line removed -cbc, cmp, esr, blood cultures taken -1x vancomycin 1250mg IVPB -ID ON board 04/06/18 15:02 -wbc wnl; ccrp wnl -will d/c with augmentin 875mg po bid for 7 days -ID following -f/u with primary *DC/Admit/Observation/Transfer Diagnosis at time of Disposition: Fever, unknown origin - Discharge Dispostion Disposition: HOME Condition at time of disposition: Fair Decision to Admit order: No - Prescriptions Prescriptions: Amoxicillin/Potassium Clav [Augmentin 875-125 Tablet] 1 each PO BID 7 Days #14 tablet - Referrals - Patient Instructions Additional Instructions: Edwar Cantrell, your lab work was with in normal limits. We removed your PICC line to remove source of infection. Please continue to take prescribed antibiotic. Call Dr. Gayle for any fever over 100.0F. Please continue to follow with your primary. IF you experience any worsening of symptoms, including swelling redness, warmth around previous picc line site, urinary complaints, high fever, chills,please return to the emergency room. - Post Discharge Activity
[2018-04-06 14:13] LABS: BASO % 0.9 % (0-2.0); EOS % 1.8 % (0-4.5); HEMATOCRIT 36.6 % (32.4-45.2); HEMOGLOBIN 12.1 GM/dL (10.7-15.3); LYMPH % 30.8 % (8-40); MCH 28.3 pg (25.7-33.7); MCHC 32.9 g/dl (32.0-36.0); MEAN CELL VOLUME 85.9 fl (80-96); MEAN PLT VOLUME 9.4 fl (7.5-11.1); NEUT % 63.5 % (42.8-82.8); PLATELET COUNT 313 K/MM3 (134-434); RBC 4.26 M/mm3 (3.60-5.2); RDW 18.1 % (11.6-15.6); WHITE BLOOD COUNT 6.7 K/mm3 (4.0-10.0)
[2018-04-06 14:37] LABS: ALBUMIN 4.2 g/dl (3.4-5.0); ALK PHOS 70 U/L (45-117); ANION GAP 9 MMOL/L (8-16); BILIRUBIN,TOTAL 0.2 mg/dL (0.2-1); BLOOD UREA NITROGEN 10 mg/dL (7-18); CALCIUM 9.1 mg/dL (8.5-10.1); CHLORIDE 110 mmol/L (98-107); CO2 20 mmol/L (21-32); CREATININE 0.8 mg/dL (0.55-1.3); GLUCOSE,RANDOM 80 mg/dL (74-106); POTASSIUM 3.9 mmol/L (3.5-5.1); SGOT/AST 18 U/L (15-37); SGPT/ALT 14 U/L (13-61); SODIUM 139 mmol/L (136-145)
--- NOTE | 2018-04-06 15:01 | PDOC ---
Attending Attestation - Resident Resident Name: Apryl Tillman - ED Attending Attestation I have performed the following: I have examined & evaluated the patient, The case was reviewed & discussed with the resident, I agree w/resident's findings & plan, Exceptions are as noted - HPI HPI: 04/06/18 14:59 Reviewed Residents HPI - Physicial Exam PE: 04/06/18 15:00 Reviewed Residents PE - Medical Decision Making 04/06/18 15:00 32 years old status post laminectomy complicated by drainage and washout approximately 1 month ago with low-grade fevers finishing up a course of ceftriaxone outpatient via PICC line presents to the ED with low-grade fevers 1 week Case discussed with patient's infectious disease doctor recommends removing pick peripheral access 1 g ceftriaxone ordered per infectious disease here in the emergency department We'll discharge with 7 day course of Augmentin Patient well-appearing no apparent distress Findings, the need for follow-up and strict return instructions discussed with patient.
== END 2018-04-06 17:30 | disposition home or self-care (01) ==
LOC: JER 11:55
PROC: 0JPVXXZ Removal of Tunneled Vascular Access Device from Upper Extremity Subcutaneous Tissue and Fascia, External Approach (ICD-10-PCS; principal; 2018-04-06)
PROC: 3E03329 Introduction of Other Anti-infective into Peripheral Vein, Percutaneous Approach (ICD-10-PCS; 2018-04-06)
DX: R50.9 Fever, unspecified (principal); Z95.828 Presence of other vascular implants and grafts; Z98.890 Other specified postprocedural states
CPT/HCPCS: 36415; 80053; 85025; 85651; 86140; 87040; 87804; 99282-25

== ENCOUNTER 2022-11-08 10:19 | Day surgery (SDC) | payer OTHER ==
[~2022-11-08 10:19] MED LIST changes: -BACITRACIN 15 GM TUBE TOPICAL OINTMENT TP ONE; +CYANOCOBALAMIN (VITAMIN B-12) 1000 MCG/1 ML VIAL IM ONE; +IRON SUCROSE COMPLEX 200 MG in SODIUM CHLORIDE 100 ML IVPB ONE
[2022-11-08 14:22] VITALS: BP 140/65; PULSE 81; RESP 20; TEMP 98.1
== END 2022-11-08 11:45 | disposition home or self-care (01) ==
LOC: J7W 10:19 → JONCNONCHE 10:19
PROVIDERS: ATTEND Internal Medicine Hematology & Oncology
PROC: 3E033GC Introduction of Other Therapeutic Substance into Peripheral Vein, Percutaneous Approach (ICD-10-PCS; principal; 2022-11-08)
DX: E61.1 Iron deficiency (principal)
CPT/HCPCS: 96365

== ENCOUNTER 2022-11-15 09:46 | Day surgery (SDC) | payer OTHER ==
[2022-11-15] MEDS ORDERED: CYANOCOBALAMIN (VITAMIN B-12) 1000 MCG/1 ML VIAL IM ONE (10:00)
[2022-11-15] MEDS ORDERED: IRON SUCROSE COMPLEX 200 MG in SODIUM CHLORIDE 100 ML IVPB ONE (10:00)
[2022-11-15 16:20] VITALS: BP 140/79; PULSE 82; RESP 18; TEMP 98.9
== END 2022-11-15 11:00 | disposition home or self-care (01) ==
LOC: JONCNONCHE 09:46 → J7W 09:46 → JONCNONCHE 11:00
PROVIDERS: ATTEND Internal Medicine Hematology & Oncology
PROC: 3E033GC Introduction of Other Therapeutic Substance into Peripheral Vein, Percutaneous Approach (ICD-10-PCS; principal; 2022-11-15)
DX: E61.1 Iron deficiency (principal)
CPT/HCPCS: 96365

== ENCOUNTER 2022-11-22 10:12 | Day surgery (SDC) | payer OTHER ==
[2022-11-22 16:08] VITALS: BP 138/63; PULSE 85; RESP 18; TEMP 99.7
== END 2022-11-22 12:35 | disposition home or self-care (01) ==
LOC: JONCNONCHE 10:12 → J7W 10:12 → JONCNONCHE 12:35
PROVIDERS: ATTEND Internal Medicine Hematology & Oncology
PROC: 3E033GC Introduction of Other Therapeutic Substance into Peripheral Vein, Percutaneous Approach (ICD-10-PCS; principal; 2022-11-22)
PROC: 3E013GC Introduction of Other Therapeutic Substance into Subcutaneous Tissue, Percutaneous Approach (ICD-10-PCS; 2022-11-22)
DX: E61.1 Iron deficiency (principal); E53.8 Deficiency of other specified B group vitamins
CPT/HCPCS: 96365; 96372

== ENCOUNTER 2022-11-29 10:09 | Day surgery (SDC) | payer OTHER ==
[~2022-11-29 10:09] MED LIST changes: -IRON SUCROSE COMPLEX 200 MG in SODIUM CHLORIDE 100 ML IVPB ONE; +IRON SUCROSE INJECTION 200 MG in SODIUM CHLORIDE 100 ML IVPB ONE
[2022-11-29 16:12] VITALS: TEMP 98.8
[2022-11-29 16:14] VITALS: BP 116/64; PULSE 60; RESP 16
== END 2022-11-29 11:20 | disposition home or self-care (01) ==
LOC: JONCNONCHE 10:09 → J7W 10:10 → JONCNONCHE 11:20
PROVIDERS: ATTEND Internal Medicine Hematology & Oncology
PROC: 3E033GC Introduction of Other Therapeutic Substance into Peripheral Vein, Percutaneous Approach (ICD-10-PCS; principal; 2022-11-29)
PROC: 3E01305 Introduction of Other Antineoplastic into Subcutaneous Tissue, Percutaneous Approach (ICD-10-PCS; 2022-11-29)
DX: E61.1 Iron deficiency (principal); E53.8 Deficiency of other specified B group vitamins
CPT/HCPCS: 96365; 96372; J1756

== ENCOUNTER 2023-07-04 09:50 | Day surgery (SDC) | payer OTHER ==
[2023-07-04] MEDS: IRON SUCROSE INJECTION 300 MG in SODIUM CHLORIDE 250 ML IVPB ONE (11:00)
[2023-07-04] MEDS: CYANOCOBALAMIN (VITAMIN B-12) 1000 MCG/1 ML VIAL IM ONE (12:53)
[2023-07-04 17:30] VITALS: RESP 18; TEMP 98.4
[2023-07-04 17:32] VITALS: BP 119/56; PULSE 80
== END 2023-07-04 13:00 | disposition home or self-care (01) ==
LOC: JONCNONCHE 09:50 → J7W 09:52 → JONCNONCHE 13:00
PROVIDERS: ATTEND Internal Medicine Hematology & Oncology
PROC: 3E033GC Introduction of Other Therapeutic Substance into Peripheral Vein, Percutaneous Approach (ICD-10-PCS; principal; 2023-07-04)
DX: E61.1 Iron deficiency (principal)
CPT/HCPCS: 96365; J1756

== ENCOUNTER 2023-07-11 09:48 | Day surgery (SDC) | payer OTHER ==
[2023-07-11] MEDS: IRON SUCROSE INJECTION 300 MG in SODIUM CHLORIDE 250 ML IVPB ONE (10:44)
[2023-07-11] MEDS: CYANOCOBALAMIN (VITAMIN B-12) 1000 MCG/1 ML VIAL IM ONE (11:05)
[2023-07-11 18:02] VITALS: RESP 18; TEMP 98.5
[2023-07-11 18:04] VITALS: BP 118/69; PULSE 77
== END 2023-07-11 12:30 | disposition home or self-care (01) ==
LOC: JONCNONCHE 09:48 → J7W 09:49 → JONCNONCHE 12:30
PROVIDERS: ATTEND Internal Medicine Hematology & Oncology
PROC: 3E033GC Introduction of Other Therapeutic Substance into Peripheral Vein, Percutaneous Approach (ICD-10-PCS; principal; 2023-07-11)
DX: E61.1 Iron deficiency (principal)
CPT/HCPCS: 96365; J1756

== ENCOUNTER 2023-07-18 09:44 | Day surgery (SDC) | payer OTHER ==
[2023-07-18] MEDS: IRON SUCROSE INJECTION 300 MG in SODIUM CHLORIDE 250 ML IVPB ONE (10:25)
[2023-07-18] MEDS: CYANOCOBALAMIN (VITAMIN B-12) 1000 MCG/1 ML VIAL IM ONE (10:27)
[2023-07-18 14:51] VITALS: RESP 16; TEMP 98.2
[2023-07-18 14:56] VITALS: BP 115/65; PULSE 84
== END 2023-07-18 12:15 | disposition home or self-care (01) ==
LOC: J7W 09:44 → JONCNONCHE 09:44
PROVIDERS: ATTEND Internal Medicine Hematology & Oncology
DX: E61.1 Iron deficiency (principal)
CPT/HCPCS: 96365; J1756

== ENCOUNTER 2024-04-02 10:12 | Day surgery (SDC) | payer OTHER ==
[2024-04-02] MEDS: IRON SUCROSE INJECTION 200 MG in SODIUM CHLORIDE 100 ML IVPB ONE (11:10)
[2024-04-02 12:32] VITALS: PULSE 72; RESP 18; TEMP 98.8
[2024-04-02 12:37] VITALS: BP 119/64
== END 2024-04-02 12:25 | disposition home or self-care (01) ==
LOC: JONCCHEMO 10:12 → J7W 10:53 → JONCCHEMO 12:25
PROVIDERS: ATTEND Internal Medicine Hematology & Oncology
PROC: 3E033GC Introduction of Other Therapeutic Substance into Peripheral Vein, Percutaneous Approach (ICD-10-PCS; principal; 2024-04-02)
DX: D50.9 Iron deficiency anemia, unspecified (principal)
CPT/HCPCS: 96365; J1756

== ENCOUNTER 2024-04-09 10:02 | Day surgery (SDC) | payer OTHER ==
[2024-04-09] MEDS: IRON SUCROSE INJECTION 200 MG in SODIUM CHLORIDE 100 ML IVPB ONE (10:07)
[2024-04-09 16:25] VITALS: BP 107/57; PULSE 79; RESP 16; TEMP 98.1
== END 2024-04-09 11:00 | disposition home or self-care (01) ==
LOC: JONCCHEMO 10:02 → J7W 10:03 → JONCCHEMO 11:00
PROVIDERS: ATTEND Internal Medicine Hematology & Oncology
PROC: 3E033GC Introduction of Other Therapeutic Substance into Peripheral Vein, Percutaneous Approach (ICD-10-PCS; principal; 2024-04-09)
DX: D50.9 Iron deficiency anemia, unspecified (principal)
CPT/HCPCS: 96372; J1756

== ENCOUNTER 2024-04-23 10:34 | Day surgery (SDC) | payer OTHER ==
[2024-04-23] MEDS: IRON SUCROSE INJECTION 200 MG in SODIUM CHLORIDE 100 ML IVPB ONE (10:00)
[~2024-04-23 10:34] MED LIST changes: -CYANOCOBALAMIN (VITAMIN B-12) 1000 MCG/1 ML VIAL IM ONE
[2024-04-23 13:20] VITALS: BP 94/61; PULSE 75; RESP 16; TEMP 98.2
== END 2024-04-23 11:30 | disposition home or self-care (01) ==
LOC: JONCCHEMO 10:34 → J7W 10:35 → JONCCHEMO 11:30
PROVIDERS: ATTEND Internal Medicine Hematology & Oncology
PROC: 3E033GC Introduction of Other Therapeutic Substance into Peripheral Vein, Percutaneous Approach (ICD-10-PCS; principal; 2024-04-23)
DX: D50.9 Iron deficiency anemia, unspecified (principal)
CPT/HCPCS: 96365; J1756

== ENCOUNTER 2024-04-30 10:08 | Day surgery (SDC) | payer OTHER ==
[2024-04-30] MEDS: IRON SUCROSE INJECTION 200 MG in SODIUM CHLORIDE 100 ML IVPB ONE (10:20)
[2024-04-30 16:10] VITALS: BP 135/79; PULSE 84; RESP 20; TEMP 98.7
== END 2024-04-30 11:30 | disposition home or self-care (01) ==
LOC: JONCNONCHE 10:08
PROVIDERS: ATTEND Internal Medicine Hematology & Oncology
PROC: 3E033GC Introduction of Other Therapeutic Substance into Peripheral Vein, Percutaneous Approach (ICD-10-PCS; principal; 2024-04-30)
DX: D64.9 Anemia, unspecified (principal)
CPT/HCPCS: 96365; J1756

== ENCOUNTER 2025-03-18 10:18 | Day surgery (SDC) | payer OTHER ==
[2025-03-18 11:08] VITALS: TEMP 98.6
[2025-03-18] MEDS: IRON SUCROSE INJECTION 200 MG in SODIUM CHLORIDE 100 ML IVPB ONE (11:12)
[2025-03-18] MEDS: CYANOCOBALAMIN (VITAMIN B-12) 1000 MCG/1 ML VIAL IM ONE (12:15)
[2025-03-18 13:37] VITALS: BP 130/63; PULSE 78; RESP 20
== END 2025-03-18 12:45 | disposition home or self-care (01) ==
LOC: JONCNONCHE 10:18
PROVIDERS: ATTEND Internal Medicine Hematology & Oncology
PROC: 3E033GC Introduction of Other Therapeutic Substance into Peripheral Vein, Percutaneous Approach (ICD-10-PCS; principal; 2025-03-18)
PROC: 3E023GC Introduction of Other Therapeutic Substance into Muscle, Percutaneous Approach (ICD-10-PCS; 2025-03-18)
DX: E61.1 Iron deficiency (principal); E53.8 Deficiency of other specified B group vitamins
CPT/HCPCS: J1756